=== PATIENT | female | born 1945 | race Caucasian/White ===

== ENCOUNTER 2017-06-14 13:41 | Inpatient (IN) | payer MEDICARE, OTHER ==
[~2017-06-14] VITALS: Ht 152.4 cm; Wt 72.6 kg
--- NOTE | 2017-06-14 13:43 | NUR ---
[id number] FROM [facility] OUTPATIENT: CHEST PAIN x 2 DAYS. ASA 162, NITRO 0.8, GIVEN IN FIELD, NAD NOTED, VSS, RESP EVEN AND UNLABORED. PT PUT ON MONITOR, AND HOSPITAL GOWN, WAITING FOR MD HOROWITZ.
[2017-06-14 14:04] LABS: BASOPHILS % (AUTO) 0.5 % (0.0-2.0); EOSINOPHILS % (AUTO) 0.8 % (0.0-6.0); HEMATOCRIT 40 % (33-45); HEMOGLOBIN 13.1 g/dL (11.5-14.8); LYMPHOCYTES # (AUTO) 1.6 /CMM (0.8-4.8); LYMPHOCYTES % (AUTO) 25.9 % (20.0-44.0); MEAN CORPUSCULAR HEMOGLOBIN 30 PG (26.0-33.0); MEAN CORPUSCULAR HGB CONC 33 g/dl (31.0-36.0); MEAN CORPUSCULAR VOLUME 91 fL (82-100); MONOCYTES # (AUTO) 0.4 /CMM (0.1-1.30); MONOCYTES % (AUTO) 6.2 % (2.0-12.0); NEUTROPHILS # (AUTO) 4.2 /CMM (1.8-8.9); NEUTROPHILS % (AUTO) 66.6 % (43.0-81.0); PLATELET COUNT (AUTO) 203 /CMM (150-450); RDW COEFFICIENT OF VARIATION 13.6 (11.5-15.0); WHITE BLOOD COUNT (AUTO) 6.2 K/uL (4.3-11.0)
[2017-06-14 14:13] LABS: CALCIUM, SERUM 8.6 mg/dL (8.5-10.1); CARBON DIOXIDE 30 mmol/L (21-32); CHLORIDE 106 mmol/L (98-107); GLUCOSE 99 mg/dL (74-106); POTASSIUM 3.8 mmol/L (3.5-5.1); SODIUM SERUM 142 mmol/L (136-145); UREA NITROGEN, BLOOD 20 mg/dL (7-18)
[2017-06-14 14:17] LABS: INR 0.93 (0.87-1.13); PROTHROMBIN TIME 9.7 SECS (9.5-12.7)
[2017-06-14 14:22] LABS: TROPONIN I < 0.017 ng/mL (0.00-0.056)
[2017-06-14 15:05] LABS: ALANINE AMINOTRANSFERASE 112 U/L (12-78); ALBUMIN 3.4 g/dL (3.4-5.0); ALCOHOL, BLOOD < 3 mg/dL (0-0); ALKALINE PHOSPHATASE 79 U/L (46-116); ASPARTATE AMINOTRANSFERASE 78 U/L (15-37); BILIRUBIN,DIRECT 0.1 mg/dL (0.0-0.2); BILIRUBIN,TOTAL 0.4 mg/dL (0.2-1.0); TOTAL PROTEIN, SERUM 6.8 g/dL (6.4-8.2)
--- NOTE | 2017-06-14 16:03 | NUR ---
CRISIS NURSE AT
[2017-06-14] MEDS ORDERED: MAG HYDROX/AL HYDROX/SIMETH 30 ML UDC PO PRN (18:00)
[2017-06-14] MEDS ORDERED: ACETAMINOPHEN 325 MG TABLET PO PRN (18:00)
[2017-06-14] MEDS ORDERED: MAGNESIUM HYDROXIDE 30 ML UDC PO PRN (18:00)
[2017-06-14] MEDS: LORAZEPAM 0.5 MG TABLET PO PRN (18:11)
--- NOTE | 2017-06-14 18:11 | NUR ---
PATIENT AGITATED AND MEDICATED WITH ATIVAN 0.5MG PO.
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
[2017-06-14] MEDS ORDERED: THIA100T74 PO (20:04)
[2017-06-14] MEDS ORDERED: METO50TA3 PO (20:05)
[2017-06-14] MEDS ORDERED: FOLI1TAB16 PO (20:08)
[2017-06-14] MEDS ORDERED: CEPH-570 PO (20:09)
[2017-06-14] MEDS ORDERED: GABA-534 PO (20:10)
[2017-06-14] MEDS ORDERED: NITR0.4T6 SL (20:14)
[2017-06-14] MEDS: TEMAZEPAM 7.5 MG CAPSULE PO PRN (20:53)
--- NOTE | 2017-06-14 20:53 | NUR ---
GPS RN NOTE: PATIENT IS AWAKE AND ORIENTED X3. PATIENT HAS A COMPLAINT OF HEADACHE, ON A 2 OUT OF 10 ON A PAIN SCALE AND REQUESTING TYLENOL. PATIENT VITAL SIGNS STABLE. GAVE TYLENOL 650MG Q6 HRS PRN ORDERED. WILL REASSESS PAIN AND I WILL CONTINUE MONITOR PATIENT.
--- NOTE | 2017-06-14 20:53 | NUR ---
GPS RN NOTES: PATIENT IN BED AWAKE AND ORIENTED X3, PATIENT HAS COMPLAINT OF UNABLE TO SLEEP AND PT IS REQUESTING HER SLEEPING PILL. RESTORIL 7.5MG PO PRN HS GIVEN ORDERED. WILL CONTINUE TO MONITOR.
[2017-06-14 23:46] VITALS: BP 134/66
[2017-06-15] MEDS: LORAZEPAM 0.5 MG TABLET PO PRN (05:03)
--- NOTE | 2017-06-15 05:03 | NUR ---
GPS RN NOTES: PATIENT IN BED AWAKE AND PATIENT HAS COMPLAINT OF BEING ANXIOUS AND PATIENT IS REQUESTING ATIVAN. VITAL SIGNS STABLE. ATIVAN 05.MG PO GIVEN ORDERED. WILL CONTINUE TO ASSESS AND MONITOR PATIENT [id number] FOR SAFETY.
[2017-06-15] MEDS ORDERED: NITROGLYCERIN 0.4 MG/TAB BOTTLE SL SCH (06:30)
[2017-06-15 06:42] LABS: ALBUMIN 3.1 g/dL (3.4-5.0); BILIRUBIN,TOTAL 0.5 mg/dL (0.2-1.0); CALCIUM, SERUM 8.9 mg/dL (8.5-10.1); CREATININE 0.9 mg/dL (0.6-1.3); POTASSIUM 3.8 mmol/L (3.5-5.1); TOTAL PROTEIN, SERUM 6.5 g/dL (6.4-8.2)
[2017-06-15] MEDS ORDERED: FIXODENT PO PRN (07:00)
[2017-06-15 08:00] VITALS: BP 146/79
[2017-06-15] MEDS ORDERED: CEPHALEXIN MONOHYDRATE 500 MG CAPSULE PO SCH (09:00)
[2017-06-15] MEDS: GABAPENTIN 300 MG CAPSULE PO SCH ×3 (09:11→16:59)
[2017-06-15] MEDS: METOPROLOL TARTRATE 50 MG TABLET PO SCH ×2 (09:11→16:59)
[2017-06-15] MEDS: CEPHALEXIN MONOHYDRATE 500 MG CAPSULE PO SCH ×4 (09:11→20:54)
[2017-06-15] MEDS: THIAMINE HCL 100 MG TABLET PO SCH (09:11)
[2017-06-15] MEDS: FOLIC ACID 1 MG TABLET PO SCH (09:11)
[2017-06-15] MEDS ORDERED: DIVALPROEX SODIUM 250 MG TABLET.DR PO SCH (13:00)
[2017-06-15] MEDS ORDERED: [UNRECOGNIZED DRUG - SUPPLY] XX (14:30)
--- NOTE | 2017-06-15 14:53 | NUR ---
Initial Discharge Note: Patient resides alone in an apartment [address] [place] [address]. ([phone]). Per patient, she does not want to return to the room worker will help form a safe and proper discharge.
[2017-06-15] MEDS: QUETIAPINE FUMARATE 25 MG TABLET PO SCH ×2 (15:52→20:54)
[2017-06-15 16:00] VITALS: BP 138/78
[2017-06-15 20:00] VITALS: BP 122/56
[2017-06-16 08:00] VITALS: BP 129/77
--- NOTE | 2017-06-16 10:18 | NUR ---
WOUND CARE CONSULT: PT PRESENTS AMBULATORY AND CONTINENT. PT HAS SMALL DRY LESION TO ANTERIOR SCALP AND DRY SCAB TO ABDOMEN. NO DRAINAGE NOTED. DEFER TO MD FOR HEAD LESION AND ABDOMINAL SCAB. CURRENT VASQUEZ SCORE IS 19. WILL SEE PRN.
[2017-06-16] MEDS: QUETIAPINE FUMARATE 25 MG TABLET PO SCH ×2 (10:23→16:14)
[2017-06-16] MEDS: METOPROLOL TARTRATE 50 MG TABLET PO SCH ×2 (10:23→16:12)
[2017-06-16] MEDS: CEPHALEXIN MONOHYDRATE 500 MG CAPSULE PO SCH ×4 (10:23→21:44)
[2017-06-16] MEDS: THIAMINE HCL 100 MG TABLET PO SCH (10:23)
[2017-06-16] MEDS: GABAPENTIN 300 MG CAPSULE PO SCH ×3 (10:23→16:14)
[2017-06-16] MEDS: FOLIC ACID 1 MG TABLET PO SCH (10:23)
[2017-06-16 16:07] VITALS: BP 103/59
[2017-06-16 20:00] VITALS: BP 135/71
[2017-06-16] MEDS: TEMAZEPAM 7.5 MG CAPSULE PO PRN (21:45)
[2017-06-17 08:00] VITALS: BP 144/82
[2017-06-17] MEDS: GABAPENTIN 300 MG CAPSULE PO SCH ×3 (09:00→16:28)
[2017-06-17] MEDS: QUETIAPINE FUMARATE 25 MG TABLET PO SCH ×2 (09:00→16:29)
[2017-06-17] MEDS: METOPROLOL TARTRATE 50 MG TABLET PO SCH ×2 (09:00→16:30)
[2017-06-17] MEDS: CEPHALEXIN MONOHYDRATE 500 MG CAPSULE PO SCH ×4 (09:00→21:46)
[2017-06-17] MEDS: THIAMINE HCL 100 MG TABLET PO SCH (09:00)
[2017-06-17] MEDS: FOLIC ACID 1 MG TABLET PO SCH (09:00)
[2017-06-17 16:00] VITALS: BP 113/54
[2017-06-17 16:31] VITALS: BP 118/64
--- NOTE | 2017-06-17 19:29 | NUR ---
MANAGER ART-NOTES RECEIVED CALL FROM LAB REGARDING MRSA SPECIMEN COLLECTION ON PT. BOTH NARES. ENDORSED TO NIGHT NURSE(KAMILAH) FOR THE COLLECTION AND CONTINUITY OF CARE.
[2017-06-17 20:00] VITALS: BP 122/62
[2017-06-17] MEDS: TEMAZEPAM 7.5 MG CAPSULE PO PRN (21:46)
[2017-06-18 08:00] VITALS: BP 129/67
[2017-06-18] MEDS: METOPROLOL TARTRATE 50 MG TABLET PO SCH ×2 (08:43→17:41)
[2017-06-18] MEDS: FOLIC ACID 1 MG TABLET PO SCH (08:43)
[2017-06-18] MEDS: QUETIAPINE FUMARATE 25 MG TABLET PO SCH ×2 (08:43→17:40)
[2017-06-18] MEDS: THIAMINE HCL 100 MG TABLET PO SCH (08:43)
[2017-06-18] MEDS: GABAPENTIN 300 MG CAPSULE PO SCH ×3 (08:43→17:40)
[2017-06-18] MEDS: CEPHALEXIN MONOHYDRATE 500 MG CAPSULE PO SCH ×4 (08:43→21:45)
[2017-06-18] MEDS: LORAZEPAM 0.5 MG TABLET PO PRN (13:39)
[2017-06-18 15:39] VITALS: BP 116/61
[2017-06-18] MEDS: NEOMY SULF/BACITRAC ZN/POLY 15 GM TUBE TP SCH (17:38)
[2017-06-18 20:52] VITALS: BP 107/62
[2017-06-18] MEDS: TEMAZEPAM 7.5 MG CAPSULE PO PRN (21:46)
--- NOTE | 2017-06-18 21:46 | NUR ---
GPS RN NOTES: PATIENT ALERT AND ORIENTED X3, PATIENT COMPLAINED UNABLE TO SLEEP. PATIENT IS REQUESTING RESTORIL. V/S STABLE. RESTORIL 7.5MG PO GIVEN ORDERED, TOLERATED WELL. WILL CONTINUE TO ASSESS PATIENT AND MONITOR HOURS OF SLEEP.
[2017-06-19 08:00] VITALS: BP 141/72
[2017-06-19] MEDS: QUETIAPINE FUMARATE 25 MG TABLET PO SCH ×2 (08:33→16:18)
[2017-06-19] MEDS: METOPROLOL TARTRATE 50 MG TABLET PO SCH ×2 (08:33→16:18)
[2017-06-19] MEDS: FOLIC ACID 1 MG TABLET PO SCH (08:33)
[2017-06-19] MEDS: GABAPENTIN 300 MG CAPSULE PO SCH ×3 (08:34→16:18)
[2017-06-19] MEDS: THIAMINE HCL 100 MG TABLET PO SCH (08:34)
[2017-06-19] MEDS: CEPHALEXIN MONOHYDRATE 500 MG CAPSULE PO SCH ×4 (08:34→21:17)
[2017-06-19] MEDS: NEOMY SULF/BACITRAC ZN/POLY 15 GM TUBE TP SCH ×2 (08:44→16:24)
--- NOTE | 2017-06-19 15:16 | NUR ---
Initially, SW worked with patient, by calling Bill Payers to obtain information about patient's overall source of income (patient reported being unsure as to amount of financial assistance she was receiving) to help patient locate an alternative living facility. A message was left by patient. Patient was able to provide SSI documentation showing amount of financial assistance she is receiving. Patient provided conflicting reports regarding plans upon discharge. She discussed wanting to return home as well as wanting to relocate. Patient reports having issues with her neighbors. Patient also inquired about assisting her obtain her medication upon discharge. Efforts were made by SW to contact Donovan Monsivais, [facility] [place] [address]; in order to assess if patient has a Housing SW or Relay Checker that can help her with medication support upon her discharge. SW attempted to contact Misa from [facility], whom patient reported as being her "worker." Donovan Monsivais reported Misa no longer worked at the facility and that they could not provide any information pertaining to the patient due to HIPPA laws. SW provided patient with an update, at which time she became upset about and reported not needing any help. Patient reported receiving transportation services on Tuesdays and Wednesdays from [facility] and that she could receive services from them. Patient asked for her prescription upon discharge and stated, I'm able body, I can walk and chicken picker my medication on my own." Patient was agreeable that she had the means to chicken picker her medication upon discharge. SW to follow up and ensure proper discharge.
[2017-06-19] MEDS: LORAZEPAM 0.5 MG TABLET PO PRN (15:27)
--- NOTE | 2017-06-19 15:28 | NUR ---
GPS RN NOTES: PATIENT ANXIOUS AND PATIENT IS REQUESTING ATIVAN. VITAL SIGNS STABLE. ATIVAN 05.MG PO GIVEN ORDERED. WILL CONTINUE TO ASSESS AND MONITOR PATIENT [id number] FOR SAFETY.
[2017-06-19 16:35] VITALS: BP 159/66
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
[2017-06-19 20:25] VITALS: BP 97/40
[2017-06-19] MEDS: TEMAZEPAM 7.5 MG CAPSULE PO PRN (21:17)
--- NOTE | 2017-06-19 21:17 | NUR ---
GPS RN NOTES: PATIENT ALERT AND ORIENTED X3, PATIENT COMPLAINED UNABLE TO SLEEP. PATIENT IS REQUESTING RESTORIL. V/S STABLE. RESTORIL 7.5MG PO GIVEN ORDERED, TOLERATED WELL. WILL CONTINUE TO ASSESS PATIENT SAFETY AND BEHAVIOR [id number] AND MONITOR HOURS OF SLEEP.
[2017-06-20 08:00] VITALS: BP 117/69
[2017-06-20] MEDS: CEPHALEXIN MONOHYDRATE 500 MG CAPSULE PO SCH ×4 (08:30→21:06)
[2017-06-20] MEDS: FOLIC ACID 1 MG TABLET PO SCH (08:31)
[2017-06-20] MEDS: THIAMINE HCL 100 MG TABLET PO SCH (08:31)
[2017-06-20] MEDS: GABAPENTIN 300 MG CAPSULE PO SCH ×3 (08:31→16:03)
[2017-06-20] MEDS: METOPROLOL TARTRATE 50 MG TABLET PO SCH ×2 (08:31→16:03)
[2017-06-20] MEDS: QUETIAPINE FUMARATE 25 MG TABLET PO SCH ×2 (08:31→16:03)
[2017-06-20] MEDS: NEOMY SULF/BACITRAC ZN/POLY 15 GM TUBE TP SCH ×2 (09:19→16:43)
[2017-06-20 15:46] VITALS: BP 117/54
[2017-06-20 20:12] VITALS: BP 100/59
[2017-06-20] MEDS: TEMAZEPAM 7.5 MG CAPSULE PO PRN (21:06)
[2017-06-21] MEDS: LORAZEPAM 0.5 MG TABLET PO PRN (05:26)
--- NOTE | 2017-06-21 05:26 | NUR ---
GPS RN NOTES: PATIENT COMPLAINED TO ORE PUNCHER OF BEING ANXIOUS, REQUESTED FOR ATIVAN0.5MG PO. BP CHECKED 131/76, PULSE RATE-68. GIVEN TO PATIENT PRN ORDER. WILL CONTINUE TO MONITOR PATIENT.
[2017-06-21 08:17] VITALS: BP 133/64
[2017-06-21] MEDS: QUETIAPINE FUMARATE 25 MG TABLET PO SCH (09:09)
[2017-06-21] MEDS: CEPHALEXIN MONOHYDRATE 500 MG CAPSULE PO SCH ×2 (09:09→13:34)
[2017-06-21 09:10] VITALS: BP 133/64
[2017-06-21] MEDS: FOLIC ACID 1 MG TABLET PO SCH (09:10)
[2017-06-21] MEDS: METOPROLOL TARTRATE 50 MG TABLET PO SCH (09:10)
[2017-06-21] MEDS: THIAMINE HCL 100 MG TABLET PO SCH (09:10)
[2017-06-21] MEDS: GABAPENTIN 300 MG CAPSULE PO SCH ×2 (09:10→13:34)
[2017-06-21] MEDS: NEOMY SULF/BACITRAC ZN/POLY 15 GM TUBE TP SCH (09:11)
--- NOTE | 2017-06-21 10:30 | NUR ---
RN-CO: PATIENT WAS RELEASE BY MENTAL HEALTH COURT. PER COURT, THERE IS NOT PROBABLE CAUSE TO BELIEVE THAT SHE A MENTAL HEALTH DISORDER IS A DANGER TO HERSELF,DTO AND GD. NOTIFIED DR BOLIVAR AND ORDERED TO DISCONTINUE HOLD AND DISCHARGE THE PATIENT TODAY.
--- NOTE | 2017-06-21 10:38 | NUR ---
Discharge Note Patient will be discharged home to [address] [address]. [phone] via taxi arranged by social work job titles. Patient had no family to notify and provided no contacts. Patient appeared alert, oriented and denied suicidal/homicidal ideation. Patient was released by the court. Patient will follow up with her psychiatrist, Dr. Osborne [address] [address] [phone] on July 04 at noon. Patient was encouraged to discuss her history of alcohol use with him. Patient was also encouraged to present at Alcoholic Anonymous Meeting at [address] [place] on June 23 at 7:30pm. Patient had no hogshead stock clerk and was referred to [address] [address] .
--- NOTE | 2017-06-21 14:00 | NUR ---
CLIENT REPORTING ASSOCIATE NOTE:PATIENT ALERT ,VERBALLY RESPONSIVE VS STABLE ,DENIES SI/HI/AVH .NO C/O PAIN AND NOTIFIED OF DISCHARGE WITH DISCHARGE ORDERS .PATIENT IN COURT HEARING AND COMPRESSOR OPERATOR DISCHARGE PATIENT AND DISCONTINUED THE HOLD .ALL BEONGINGS RETURNED TO PATIENT .ALL PRESCRIPTION AND LIST OF MEDICATION AND DISCHARGE INSTRUCTION GIVEN TO PATIENT ABLE TO VERBALIZE UNDERSTANDING .PATIENT DISCHARGE WITH TAXI.
--- NOTE | 2017-06-23 12:14 | NUR ---
RN NOTE: LATE ENTRY FOR 06/21/17 PATIENT REFUSED DISCHARGE PHOTOS .
== END 2017-06-21 14:15 | disposition home or self-care (01) | DRG 885 ==
LOC: ER 13:44 → GPS 16:34
PROVIDERS: ADMIT Psychiatry & Neurology Psychiatry; ATTEND General Practice
DX: F31.64 Bipolar disorder, current episode mixed, severe, with psychotic features (principal); E78.5 Hyperlipidemia, unspecified; S30.92XA Unspecified superficial injury of abdominal wall, initial encounter; S01.00XA Unspecified open wound of scalp, initial encounter; I10 Essential (primary) hypertension; Z79.899 Other long term (current) drug therapy; Z96.651 Presence of right artificial knee joint; Z88.2 Allergy status to sulfonamides; F10.21 Alcohol dependence, in remission; X58.XXXA Exposure to other specified factors, initial encounter; Y93.9 Activity, unspecified; Y92.009 Unspecified place in unspecified non-institutional (private) residence as the place of occurrence of the external cause; L98.8 Other specified disorders of the skin and subcutaneous tissue
CPT/HCPCS: 36415; 71010-TC; 80048-TC; 80053-TC; 80061-TC; 80076-TC; 84484-TC; 85025-TC; 85730-TC; 87081-TC; A4606; G0480; Z7610

== ENCOUNTER 2018-12-27 13:20 | Inpatient (IN) | payer MEDICARE, OTHER ==
[~2018-12-27] VITALS: Ht 152.4 cm; Wt 64.9 kg
[~2018-12-27 13:20] MED LIST: CEPH-570 PO; FOLI1TAB16 PO; GABA-534 PO; METO50TA16 PO; NITR0.4T48 PO; THIA100T74 PO
[2018-12-27] MEDS ORDERED: QUET25TA PO (13:51)
[2018-12-27] MEDS ORDERED: TRAM50TA2 PO (13:51)
[2018-12-27] MEDS ORDERED: FLUO10TA PO (13:51)
[2018-12-27] MEDS ORDERED: ZOLPIDEM TARTRATE 5 MG TABLET PO PRN (14:30)
[2018-12-27] MEDS ORDERED: MAGNESIUM HYDROXIDE 30 ML UDC PO PRN (14:30)
[2018-12-27] MEDS ORDERED: LORAZEPAM 0.5 MG TABLET PO PRN (14:30)
[2018-12-27] MEDS ORDERED: ACETAMINOPHEN 325 MG TABLET PO PRN (14:30)
[2018-12-27] MEDS ORDERED: MAG HYDROX/AL HYDROX/SIMETH 30 ML UDC PO PRN (14:30)
[2018-12-27 14:32] VITALS: BP 161/86
--- NOTE | 2018-12-27 15:13 | NUR ---
GPS ADMITTING NOTE: PATIENT 73Y/O FEMALE ADMITTED FROM [facility] WAS PLACED ON 5150 HOLD FOR DTO, GD. PER HOLD PT CAME TO ER WITH ALTERED STATED OF MIND COMPLAINING OF HEADACHE AND INCREASED MENTAL HEALTH STAT. PT STATED "I DONT FEEL SAFE,I MAY SERT MYSELF RUN IN FRONT OF THE CARE. UPON FACE TO FACE EVALUATION PT A&OX4 , AMBULATORY, SELF CARE, UNKEPT , DISHEVELED,PT DENIES SI/HI AT THIS TIME BUT ADMIT FEELING DEPRESSED, HELPLESS. PT HOMELESS UNABLE TO CARE FOR SELF REPORTED POOR SLEEP .PT HAS HX OF BIPOLAR D/O . DEPRESSION . HTN. DR SINGH NOTIFIED WITH STANDING ORDER, PAPERS SIGN, SKIN ASSESSMENT DONE PICTURE PLACED IN THE CHART. ALL BELONGINGS AND CONTRABAND CHECKED.
[2018-12-27 16:12] VITALS: BP 157/81
[2018-12-27] MEDS ORDERED: NITROGLYCERIN 0.4 MG/TAB BOTTLE SL PRN (16:30)
[2018-12-27] MEDS: METOPROLOL TARTRATE 50 MG TABLET PO SCH (16:58)
[2018-12-27 19:57] VITALS: BP 133/74
[2018-12-28 07:40] LABS: ALANINE AMINOTRANSFERASE 140 U/L (12-78); ALBUMIN 3.5 g/dL (3.4-5.0); ALKALINE PHOSPHATASE 78 U/L (46-116); ASPARTATE AMINOTRANSFERASE 63 U/L (15-37); BILIRUBIN,TOTAL 0.6 mg/dL (0.2-1.0); CALCIUM, SERUM 8.6 mg/dL (8.5-10.1); CARBON DIOXIDE 27 mmol/L (21-32); CHLORIDE 106 mmol/L (98-107); CREATININE 0.9 mg/dL (0.6-1.3); GLUCOSE 93 mg/dL (74-106); POTASSIUM 4.1 mmol/L (3.5-5.1); SODIUM SERUM 142 mmol/L (136-145); TOTAL PROTEIN, SERUM 7.5 g/dL (6.4-8.2); UREA NITROGEN, BLOOD 22 mg/dL (7-18)
[2018-12-28 08:00] VITALS: BP 145/74
[2018-12-28] MEDS: METOPROLOL TARTRATE 50 MG TABLET PO SCH ×3 (08:13→16:48)
[2018-12-28 09:20] LABS: CHOLESTEROL 195 mg/dL (<200); HDL CHOLESTEROL 107 mg/dL (40-60); LDL 74 mg/dL (0-99); TRIGLYCERIDES 48 mg/dL (30-150)
[2018-12-28] MEDS: Fluoxetine 10 mg capsule PO SCH (11:06)
[2018-12-28] MEDS: QUETIAPINE FUMARATE 100 MG TABLET PO SCH ×2 (11:06→23:04)
--- NOTE | 2018-12-28 11:52 | NUR ---
INITIAL DISCHARGE PLAN: patient is homeless and wishes to be placed at a SNF. SW will help form a safe and proper discharge in collaboration with .
--- NOTE | 2018-12-28 12:02 | NUR ---
WOUND CARE CONSULT: PT PRESENTS WITH DRY LESIONS TO SCALP AND ONE DRY LESION TO ABDOMEN, UNKNOWN ETIOLOGY, PRESENT ON ADMISSION. DEFER TO MD. PT IS AMBULATORY AND CONTINENT. WILL SEE PRN. CURRENT VASQUEZ SCORE IS 20.
[2018-12-28] MEDS: GABAPENTIN 300 MG CAPSULE PO SCH ×2 (12:27→16:33)
--- NOTE | 2018-12-28 14:17 | NUR ---
GROUP NOTE: SW prompted pt to participate in group, pt was asleep and did not wake up when SW called her name.
[2018-12-28 16:00] VITALS: BP 109/64
[2018-12-28] MEDS ORDERED: CLINDAMYCIN HCL 150 MG CAPSULE PO SCH (17:00)
[2018-12-28] MEDS ORDERED: LACTOBACILLUS RHAMNOSUS GG 1 EACH CAP.SPRINK PO SCH (17:00)
[2018-12-28] MEDS: CEPHALEXIN MONOHYDRATE 250 MG CAPSULE PO SCH ×2 (17:16→23:04)
[2018-12-28 20:00] VITALS: BP 149/71
[2018-12-29] MEDS: CEPHALEXIN MONOHYDRATE 250 MG CAPSULE PO SCH ×4 (06:14→23:05)
[2018-12-29 08:00] VITALS: BP 113/68
[2018-12-29] MEDS: METOPROLOL TARTRATE 50 MG TABLET PO SCH ×2 (08:18→16:15)
[2018-12-29] MEDS: QUETIAPINE FUMARATE 100 MG TABLET PO SCH ×2 (08:19→21:05)
[2018-12-29] MEDS: GABAPENTIN 300 MG CAPSULE PO SCH ×3 (08:19→16:15)
[2018-12-29] MEDS: Fluoxetine 10 mg capsule PO SCH (08:19)
[2018-12-29 16:00] VITALS: BP 110/55
[2018-12-29] MEDS ORDERED: MUPIROCIN OINT 2% 22 GM TUBE TP SCH (17:00)
[2018-12-29] MEDS: MUPIROCIN OINT 2% 22 GM TUBE SCH (20:07)
[2018-12-29 20:42] VITALS: BP 100/58
[2018-12-29] MEDS ORDERED: MUPIROCIN OINT 2% 22 GM TUBE SCH (21:00)
[2018-12-29] MEDS: TEMAZEPAM 15 MG CAPSULE PO PRN (23:54)
[2018-12-30] MEDS: CEPHALEXIN MONOHYDRATE 250 MG CAPSULE PO SCH ×4 (06:00→23:46)
[2018-12-30 08:00] VITALS: BP 122/70
[2018-12-30] MEDS: GABAPENTIN 300 MG CAPSULE PO SCH ×3 (08:29→16:07)
[2018-12-30] MEDS: QUETIAPINE FUMARATE 100 MG TABLET PO SCH ×2 (08:29→21:12)
[2018-12-30] MEDS: Fluoxetine 10 mg capsule PO SCH (08:29)
[2018-12-30] MEDS: METOPROLOL TARTRATE 50 MG TABLET PO SCH ×2 (08:29→16:07)
[2018-12-30] MEDS: MUPIROCIN OINT 2% 22 GM TUBE SCH ×2 (08:30→21:12)
[2018-12-30 16:00] VITALS: BP 119/69
[2018-12-30] MEDS: TRAMADOL HCL 50 MG TABLET PO PRN (16:06)
--- NOTE | 2018-12-30 16:10 | NUR ---
GPS RN NOTE: PATIENT C/O RIGHT SHOULDER PAIN 8/10 ULTRAM WAS GIVEN PER ORDER. WILL CONTINUE MONITORING
[2018-12-30 20:15] VITALS: BP 113/56
[2018-12-30] MEDS: TEMAZEPAM 15 MG CAPSULE PO PRN (21:36)
[2018-12-31] MEDS: CEPHALEXIN MONOHYDRATE 250 MG CAPSULE PO SCH ×4 (05:42→23:13)
[2018-12-31 08:00] VITALS: BP 123/69
[2018-12-31] MEDS: MUPIROCIN OINT 2% 22 GM TUBE SCH ×2 (09:01→21:36)
[2018-12-31] MEDS: QUETIAPINE FUMARATE 100 MG TABLET PO SCH ×2 (09:02→21:36)
[2018-12-31] MEDS: GABAPENTIN 300 MG CAPSULE PO SCH ×3 (09:02→17:04)
[2018-12-31] MEDS: Fluoxetine 10 mg capsule PO SCH (09:02)
[2018-12-31] MEDS: METOPROLOL TARTRATE 50 MG TABLET PO SCH ×2 (09:03→17:03)
[2018-12-31 16:00] VITALS: BP_SYST 112; BP_SYST 117; BP_DIAS 53; BP_DIAS 63
--- NOTE | 2018-12-31 19:30 | NUR ---
GPS RN NOTE: PATIENT RESTING IN BED, NO ACUTE DISTRESS NOTED. BREATHING EVEN AND UNLABORED, NO SOB NOTED. PATIENT CALM AND COOPERATIVE AT THIS TIME. ISOLATION PRECAUTION OBSERVED. WILL CONTINUE TO MONITOR.
[2018-12-31 20:22] VITALS: BP 119/56
[2018-12-31] MEDS: TRAMADOL HCL 50 MG TABLET PO PRN (21:36)
--- NOTE | 2018-12-31 21:45 | NUR ---
GPS RN NOTE: PATIENT COMPLAINS OF LEFT KNEE PAIN, ULTRAM 50MG 1 TAB ORAL GIVEN PER MD ORDER. WILL CONTINUE TO MONITOR.
[2019-01-01] MEDS: CEPHALEXIN MONOHYDRATE 250 MG CAPSULE PO SCH ×4 (06:19→23:37)
[2019-01-01 08:00] VITALS: BP 130/65
[2019-01-01] MEDS: QUETIAPINE FUMARATE 100 MG TABLET PO SCH ×2 (08:28→20:45)
[2019-01-01] MEDS: Fluoxetine 10 mg capsule PO SCH (08:28)
[2019-01-01] MEDS: METOPROLOL TARTRATE 50 MG TABLET PO SCH ×2 (08:29→17:32)
[2019-01-01] MEDS: GABAPENTIN 300 MG CAPSULE PO SCH ×3 (08:29→17:32)
[2019-01-01] MEDS: MUPIROCIN OINT 2% 22 GM TUBE SCH ×2 (08:30→20:42)
--- NOTE | 2019-01-01 09:28 | NUR ---
SNF REFERRAL: PAUL faxed SNF referral to Leida foundation coordinator at [facility] (SNF) [address] [place], [address] for review.
--- NOTE | 2019-01-01 13:13 | NUR ---
SW received a call from Leida, records management coordinator at [facility] ([facility]) [address] [place], [address] stating pt has been accepted to the facility.
--- NOTE | 2019-01-01 14:25 | NUR ---
Group Note: SW prompted pt to participate in group but the pt stated that she did not want to participate because there is no need for it.
[2019-01-01 16:25] VITALS: BP 115/60
[2019-01-01 19:53] VITALS: BP 104/57
[2019-01-01 20:00] VITALS: BP 104/57
[2019-01-01] MEDS: TEMAZEPAM 15 MG CAPSULE PO PRN (23:37)
--- NOTE | 2019-01-01 23:38 | NUR ---
UNABLE TO SLEEP Patient reports unable to sleep, given PRN Restoril, will reassess.
[2019-01-02] MEDS: CEPHALEXIN MONOHYDRATE 250 MG CAPSULE PO SCH ×2 (06:02→12:03)
[2019-01-02 08:00] VITALS: BP 130/63
--- NOTE | 2019-01-02 09:00 | NUR ---
PLANS FOR DISCHARGE TODAY.[facility] SOC. WORKER CONTACTED FACILITY REGARDING PT. BEING IN ISOL. FOR MRSA-HAS BEEN ON BACTROBAN.NEED ORDER THAT MRSA IS COLONIZED PER .MICHELLE CONTACTED. REQUESTED ANOTHER MRSA SMEAR.RN CALLED LAB-STATED THAT MRSA SENT OUT AND WILL TAKE A FEW DAYS TO GET RESULT.
[2019-01-02] MEDS: MUPIROCIN OINT 2% 22 GM TUBE SCH (09:09)
[2019-01-02 09:10] VITALS: BP 130/63
[2019-01-02] MEDS: GABAPENTIN 300 MG CAPSULE PO SCH ×2 (09:10→13:31)
[2019-01-02] MEDS: Fluoxetine 10 mg capsule PO SCH (09:10)
[2019-01-02] MEDS: QUETIAPINE FUMARATE 100 MG TABLET PO SCH (09:10)
[2019-01-02] MEDS: METOPROLOL TARTRATE 50 MG TABLET PO SCH (09:10)
--- NOTE | 2019-01-02 11:21 | NUR ---
[facility] SMEAR SENT OF [facility]. NARES.
--- NOTE | 2019-01-02 11:28 | NUR ---
DISCHARGE TO BE DELAYED.RN,MAC DEVELOPER AND PSYCHIATRIST ALL SPOKE TO PT. REGARDING NEED FOR DELAY.
--- NOTE | 2019-01-02 12:09 | NUR ---
DISCHARGE NOTE: Pt will be discharging at 1:00pm via AMBULNZ to [facility] ([facility]) [address] [place], [address] . No family to notify. Pts mood is euthymic with congruent affect. Pt denied visual/auditory hallucinations and denied suicidal/homicidal ideation. Pt will be under the care of Aircraft Fuselage Framer: Dr Winter Address: [address] [place] [address] and Psychiatrist: Dr. Waterman [address] [address] [phone]. The multidisciplinary exitcare form was done, printed, signed, and given to the patient.
--- NOTE | 2019-01-02 12:34 | NUR ---
SOCIAL SERVICE NOW RECEIVED WORD FROM FACILITY THAT THEY WOULD ACCEPT PT. TODAY.PT. INFORMED.
--- NOTE | 2019-01-02 13:10 | NUR ---
REFUSED DISCHARGE PHOTOS.
--- NOTE | 2019-01-02 15:05 | NUR ---
DC'D VIA AMBULANCE TO [facility].REPORT CALLED IN TO DAMI AT FACILITY.ALL PAPERS SIGNED INCLUDING BELONGING SHEET.PT. DENIES SUICIDAL IDEATION OR HOMICIDAL IDEATION.
== END 2019-01-02 15:00 | DRG 885 ==
LOC: GPS 13:20
PROVIDERS: ADMIT Psychiatry & Neurology Psychiatry; ATTEND Nurse Practitioner Acute Care
DX: F31.5 Bipolar disorder, current episode depressed, severe, with psychotic features (principal); L03.811 Cellulitis of head [any part, except face]; N39.0 Urinary tract infection, site not specified; Z73.6 Limitation of activities due to disability; M85.80 Other specified disorders of bone density and structure, unspecified site; B35.0 Tinea barbae and tinea capitis; E66.9 Obesity, unspecified; Z59.0 Homelessness; Z79.899 Other long term (current) drug therapy; Z87.891 Personal history of nicotine dependence; Z81.8 Family history of other mental and behavioral disorders; X58.XXXA Exposure to other specified factors, initial encounter; Y92.9 Unspecified place or not applicable; Z22.322 Carrier or suspected carrier of Methicillin resistant Staphylococcus aureus; F10.10 Alcohol abuse, uncomplicated; S01.01XA Laceration without foreign body of scalp, initial encounter; L98.9 Disorder of the skin and subcutaneous tissue, unspecified
CPT/HCPCS: 36415; 80053-TC; 80061-TC; 87070-TC; 87081-TC

== ENCOUNTER 2019-03-17 15:32 | Inpatient (IN) | payer MEDICARE, OTHER ==
[~2019-03-17] VITALS: Ht 152.4 cm; Wt 68.0 kg
[~2019-03-17 15:32] MED LIST changes: -CEPH-570 PO; -FOLI1TAB16 PO; -GABA-534 PO; -THIA100T74 PO; +TRAM50TA2 PO
--- NOTE | 2019-03-17 15:45 | NUR ---
SATURNINO STOLL FOR PSYCH EVAL, AGGRESSIVE BEHAVIOR PER REPORT. PATIENT A/OX3, BREATHING EVEN AND UNLABORED, NO SOB NOTED. COOPERATIVE AT THIS TIME. KEPT COMFORTABLE, WILL CONTINUE TO MONITOR.
[2019-03-17] MEDS ORDERED: TRAM50TA2 PO (16:14)
[2019-03-17] MEDS ORDERED: ACET-868 PO (16:14)
[2019-03-17] MEDS ORDERED: MAGN400O6 PO (16:14)
[2019-03-17] MEDS ORDERED: QUET50TA PO (16:14)
[2019-03-17] MEDS ORDERED: FLUO-120 PO (16:14)
[2019-03-17] MEDS ORDERED: BISA10SU11 RC (16:14)
[2019-03-17] MEDS ORDERED: NA P133E RC (16:14)
[2019-03-17] MEDS ORDERED: GABA-532 PO (16:14)
[2019-03-17 16:36] LABS: CALCIUM, SERUM 8.9 mg/dL (8.5-10.1); CARBON DIOXIDE 24 mmol/L (21-32); CHLORIDE 105 mmol/L (98-107); CREATININE 0.7 mg/dL (0.6-1.3); GLUCOSE 90 mg/dL (74-106); SODIUM SERUM 140 mmol/L (136-145); UREA NITROGEN, BLOOD 16 mg/dL (7-18)
[2019-03-17 16:38] LABS: BASOPHILS % (AUTO) 0.4 % (0.0-2.0); EOSINOPHILS % (AUTO) 1.5 % (0.0-6.0); HEMATOCRIT 41 % (33-45); HEMOGLOBIN 13.6 g/dL (11.5-14.8); LYMPHOCYTES # (AUTO) 2.1 /CMM (0.8-4.8); LYMPHOCYTES % (AUTO) 28.9 % (20.0-44.0); MEAN CORPUSCULAR HGB CONC 33 g/dl (31.0-36.0); MEAN CORPUSCULAR VOLUME 94 fL (82-100); MONOCYTES # (AUTO) 0.6 /CMM (0.1-1.30); MONOCYTES % (AUTO) 7.8 % (2.0-12.0); NEUTROPHILS # (AUTO) 4.5 /CMM (1.8-8.9); NEUTROPHILS % (AUTO) 61.4 % (43.0-81.0); PLATELET COUNT (AUTO) 186 /CMM (150-450); RED BLOOD CELL COUNT(AUTO) 4.39 MIL/uL (4.0-5.2); WHITE BLOOD COUNT (AUTO) 7.3 K/uL (4.3-11.0)
[2019-03-17 16:48] LABS: ALANINE AMINOTRANSFERASE 131 U/L (12-78); ALBUMIN 3.4 g/dL (3.4-5.0); ALKALINE PHOSPHATASE 90 U/L (46-116); ASPARTATE AMINOTRANSFERASE 80 U/L (15-37); BILIRUBIN,DIRECT 0.2 mg/dL (0.0-0.2); BILIRUBIN,TOTAL 0.4 mg/dL (0.2-1.0); TOTAL PROTEIN, SERUM 7.2 g/dL (6.4-8.2)
[2019-03-17 16:50] LABS: ACETAMINOPHEN < 2 ug/ml (10-30); ALCOHOL, BLOOD < 3 mg/dL (0-0); SALICYLATE < 2.8 mg/dL (2.8-20.0)
--- NOTE | 2019-03-17 17:13 | NUR ---
REPORT GIVEN TO DEYSI LOVE. PATIENT ASSISTED TO RESTROOM, URINE CUP PROVIDED FOR URINE SAMPLE.
[2019-03-17 17:20] VITALS: BP 125/81
--- NOTE | 2019-03-17 17:51 | NUR ---
PATIENT TRANSFERRED TO [place] [address], IN STABLE CONDITION.
[2019-03-17 18:39] VITALS: BP 169/94
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
[2019-03-17] MEDS ORDERED: MAGNESIUM HYDROXIDE 30 ML UDC PO PRN (19:00)
[2019-03-17] MEDS ORDERED: BLOOD SUGAR DIAGNOSTIC 1 EACH STRIP IN ONE (19:00)
[2019-03-17] MEDS ORDERED: MAG HYDROX/AL HYDROX/SIMETH 30 ML UDC PO PRN (19:00)
[2019-03-17] MEDS ORDERED: ACETAMINOPHEN 325 MG TABLET PO PRN (19:00)
[2019-03-17 20:08] VITALS: BP 160/69
[2019-03-18] MEDS ORDERED: NA PHOS,M-B/NA PHOS,DI-BA 1 EA ENEMA RC PRN
[2019-03-18] MEDS ORDERED: NITROGLYCERIN 0.4 MG/TAB BOTTLE SL PRN
[2019-03-18] MEDS ORDERED: BISACODYL SUPP (10 MG) 10 MG/SUPP.RECT SUPP.RECT RC PRN
[2019-03-18] MEDS ORDERED: TRAMADOL HCL 50 MG TABLET PO PRN
[2019-03-18 06:41] LABS: ALANINE AMINOTRANSFERASE 142 U/L (12-78); ALBUMIN 3.6 g/dL (3.4-5.0); ALKALINE PHOSPHATASE 95 U/L (46-116); ASPARTATE AMINOTRANSFERASE 81 U/L (15-37); BILIRUBIN,TOTAL 0.7 mg/dL (0.2-1.0); CARBON DIOXIDE 27 mmol/L (21-32); CHLORIDE 104 mmol/L (98-107); CREATININE 0.8 mg/dL (0.6-1.3); GLUCOSE 94 mg/dL (74-106); POTASSIUM 4.6 mmol/L (3.5-5.1); SODIUM SERUM 139 mmol/L (136-145); TOTAL PROTEIN, SERUM 7.9 g/dL (6.4-8.2); UREA NITROGEN, BLOOD 18 mg/dL (7-18)
[2019-03-18 06:59] LABS: CHOLESTEROL 192 mg/dL (<200); HDL CHOLESTEROL 89 mg/dL (40-60); LDL 84 mg/dL (0-99); TRIGLYCERIDES 115 mg/dL (30-150)
[2019-03-18 08:00] VITALS: BP 149/69
[2019-03-18] MEDS ORDERED: GABAPENTIN 100 MG CAPSULE PO SCH (09:00)
[2019-03-18] MEDS: METOPROLOL TARTRATE 50 MG TABLET PO SCH ×2 (09:46→16:16)
[2019-03-18 16:00] VITALS: BP 151/70
[2019-03-18] MEDS: GABAPENTIN 100 MG CAPSULE PO SCH (16:16)
[2019-03-18 19:54] VITALS: BP 154/76
[2019-03-18] MEDS: QUETIAPINE FUMARATE 100 MG TABLET PO SCH (21:34)
[2019-03-18] MEDS: LORAZEPAM 0.5 MG TABLET PO PRN (21:34)
[2019-03-18] MEDS: TEMAZEPAM 7.5 MG CAPSULE PO PRN (21:35)
[2019-03-19 08:00] VITALS: BP 124/56
[2019-03-19] MEDS: METOPROLOL TARTRATE 50 MG TABLET PO SCH ×2 (09:21→17:47)
[2019-03-19] MEDS: FLUOXETINE HCL 20 MG CAPSULE PO SCH (09:21)
[2019-03-19] MEDS: GABAPENTIN 100 MG CAPSULE PO SCH ×2 (09:21→17:48)
--- NOTE | 2019-03-19 14:28 | NUR ---
INITIAL DISCHARGE PLAN: Pt wishes to be discharged to a different SNF as she stated she does not want to return to [facility] Address: [place] [address] . PAUL will help form a safe and proper discharge in collaboration with .
[2019-03-19 16:00] VITALS: BP 130/58
--- NOTE | 2019-03-19 19:30 | NUR ---
GPS RN NOTE, RECEIVED PATIENT AWAKE AND IN BED, NO S/S OR COMPLAINTS OF PAIN AT THIS TIME. PATIENT IS DISPLAYING NO S/S OF APPARENT DISTRESS AT THIS TIME. PATIENT BREATHING IS UNLABORED WITH EQUAL RISE AND FALL OF THE CHEST. PATIENT IS ALERT AND ORIENTED X 3 ON ROOM AIR WITH A SPO2 OF 94%. PATIENT IS MED COMPLAINT, GUARDED, ISOLATIVE, COOPERATIVE, AND NEEDS REORIENTATION. PATIENT DENIES SUICIDE AND HOMICIDAL IDEATIONS AT THIS TIME. PATIENT ASSISTED WITH TURNING AND REPOSITIONING Q2HR AND PRN FOR COMFORT AND CIRCULATION. PATIENT HAS NO NEEDS AT THIS TIME. PATIENT EDUCATED ON THE USE OF THE CALL DELEON. PATIENT BED SIDE RAILS ARE UP X 2 FOR SAFETY, BED IS LOCKED, AND LOW WILL CONTINUE TO MONITOR AND MAINTAIN SAFETY.
[2019-03-19] MEDS: QUETIAPINE FUMARATE 100 MG TABLET PO SCH (21:24)
[2019-03-19 21:38] VITALS: BP 139/68
[2019-03-20] MEDS: TEMAZEPAM 7.5 MG CAPSULE PO PRN (00:12)
--- NOTE | 2019-03-20 00:12 | NUR ---
GPS RN NOTE, PATIENT HAS A COMPLAINT OF NOT BEING ABLE TO SLEEP AND IS REQUESTING RESTORIL AT THIS TIME. PATIENT VITAL SIGNS ARE STABLE. GAVE RESTORIL 7.5 MG PO HS PRN ORDERED. WILL REASSESS FOR INSOMNIA AND I WILL CONTINUE TO MONITOR THIS PATIENT.
[2019-03-20] MEDS ORDERED: KETOCONAZOLE 2% CREAM 15 GM TUBE TP SCH (09:00)
[2019-03-20] MEDS: FLUOXETINE HCL 20 MG CAPSULE PO SCH (09:01)
[2019-03-20] MEDS: GABAPENTIN 100 MG CAPSULE PO SCH ×2 (09:01→17:40)
[2019-03-20] MEDS: METOPROLOL TARTRATE 50 MG TABLET PO SCH ×2 (09:01→17:41)
[2019-03-20 09:08] VITALS: BP 123/60
--- NOTE | 2019-03-20 12:28 | NUR ---
GROUP NOTE Goal: Patient will attend group being held today from 11am-11:45 am in the activities room and participate and/or actively listen to peers and be respectful. Intervention: SW facilitated group session with patients regarding their support system. SW used reflective listening to ensure understanding patient correctly. SW explored barriers to support system and feelings that may arise. SW respected pt.�s privacy and self-determination. SW encouraged pt. to attempt to reach out to family. Response: Patient was agreeable to participating in group session. Patient was alert and oriented and remained calm and cooperative throughout session. The resident expressed that she has an aunt, and one daughter plus grandchildren, however, they are not in contact. Resident did not disclose reason why she is not in communication with daughter. Per patient, she will consider reaching out and locating daughter. Plan: Patient will be invited to attend next director social group session held.
--- NOTE | 2019-03-20 15:59 | NUR ---
IAM ALEJANDRO HORSEBACK EXCAVATOR IN EARLIER AND MULTIPLE MEDS ORDERED FOR SCALP IRRITATION.
[2019-03-20 16:00] VITALS: BP 125/59
[2019-03-20] MEDS ORDERED: KETOCONAZOLE SHAMPOO TP SCH (17:00)
[2019-03-20] MEDS: TRIAMCINOLONE ACETONIDE 0.1% TP SCH (17:43)
--- NOTE | 2019-03-20 18:00 | NUR ---
NO CHANGE IN STATUS.
[2019-03-20 20:13] VITALS: BP 154/67
[2019-03-20] MEDS: QUETIAPINE FUMARATE 100 MG TABLET PO SCH (21:16)
[2019-03-21 08:00] VITALS: BP 108/63
[2019-03-21] MEDS: FLUOXETINE HCL 20 MG CAPSULE PO SCH (08:48)
[2019-03-21] MEDS: GABAPENTIN 100 MG CAPSULE PO SCH ×2 (08:48→16:33)
[2019-03-21] MEDS: METOPROLOL TARTRATE 50 MG TABLET PO SCH ×2 (08:49→16:34)
[2019-03-21] MEDS: KETOCONAZOLE SHAMPOO TP SCH (08:51)
[2019-03-21] MEDS: TRIAMCINOLONE ACETONIDE 0.1% TP SCH ×2 (08:51→16:35)
[2019-03-21] MEDS ORDERED: KETOCONAZOLE SHAMPOO TP SCH (09:00)
[2019-03-21] MEDS: MAGNESIUM HYDROXIDE 30 ML UDC PO PRN (10:21)
--- NOTE | 2019-03-21 10:26 | NUR ---
GPS/RN-NOTES PATIENT C/O CONSTIPATION AND REQUESTING FOR MOM . MOM 30ML GIVEN PRN ORDER. WILL CONT. MONITORING.
[2019-03-21] MEDS: LORAZEPAM 0.5 MG TABLET PO PRN (14:26)
--- NOTE | 2019-03-21 14:26 | NUR ---
GPS/RN-NOTES PATIENT REQUESTING ATIVAN,STATED" I NEED IT FOR MY ANXIETY" ATIVAN 0.5MG P.O GIVEN PRN ORDER. WILL CONT. MONITORING FOR SAFETY AND BEHAVIOR.
[2019-03-21 16:00] VITALS: BP 153/78
[2019-03-21 20:00] VITALS: BP 130/69
[2019-03-21] MEDS: QUETIAPINE FUMARATE 100 MG TABLET PO SCH (21:36)
[2019-03-21] MEDS: TEMAZEPAM 7.5 MG CAPSULE PO PRN (22:05)
--- NOTE | 2019-03-21 22:15 | NUR ---
GPS RN NOTE: PATIENT REQUEST FROM MEDICATION FOR SLEEP, RESTORIL 7.5MG 1 TAB ORAL GIVEN PER MD ORDER. WILL CONTINUE TO MONITOR.
[2019-03-22 08:00] VITALS: BP_SYST 138; BP_SYST 151; BP_DIAS 71
[2019-03-22] MEDS: FLUOXETINE HCL 20 MG CAPSULE PO SCH (08:49)
[2019-03-22] MEDS: METOPROLOL TARTRATE 50 MG TABLET PO SCH ×2 (08:49→16:15)
[2019-03-22] MEDS: GABAPENTIN 100 MG CAPSULE PO SCH ×3 (08:49→16:15)
[2019-03-22] MEDS: TRIAMCINOLONE ACETONIDE 0.1% TP SCH ×2 (08:51→16:12)
[2019-03-22] MEDS: KETOCONAZOLE SHAMPOO TP SCH (08:53)
[2019-03-22] MEDS: MAGNESIUM HYDROXIDE 30 ML UDC PO PRN (10:54)
--- NOTE | 2019-03-22 11:57 | NUR ---
PAUL faxed SNF referral to Mayra, immigration coordinator at [facility] Address: [address] [place] [address] for review.
[2019-03-22] MEDS: LORAZEPAM 0.5 MG TABLET PO PRN (15:20)
--- NOTE | 2019-03-22 15:25 | NUR ---
SW received a call from Belem, admissions representative at [facility] Address: [address] [place] [address] stating pt has been accepted to the facility.
[2019-03-22 16:00] VITALS: BP 143/72
--- NOTE | 2019-03-22 17:40 | NUR ---
gps supervisor forming department: notes pt came up, c/o rash on her abdomen and brought to my attention. noted with multiple lesions to abdomen area. pt has been refusing skin assessment until now. pt notice them yesterday, but did not tell the nurses on duty, stated, "i thought it was just a rash, but there is oozing now." cn reassessed abdomen lesions and asked if she has them when she was admitted, stated, "i had them but it wasn't like this before." pt allowed staff to assess full skin assessment and no other lesions noted. will defer to md to evaluate lesions/rash like tomorrow. will endorse accordingly. wound consult ordered. will continue to monitor.
[2019-03-22 20:00] VITALS: BP 115/60
[2019-03-22] MEDS: QUETIAPINE FUMARATE 100 MG TABLET PO SCH (21:23)
[2019-03-22] MEDS: TEMAZEPAM 7.5 MG CAPSULE PO PRN (21:24)
[2019-03-23 08:00] VITALS: BP 133/66
[2019-03-23] MEDS: KETOCONAZOLE SHAMPOO TP SCH (09:00)
[2019-03-23] MEDS: FLUOXETINE HCL 20 MG CAPSULE PO SCH (09:44)
[2019-03-23] MEDS: GABAPENTIN 100 MG CAPSULE PO SCH ×3 (09:44→17:28)
[2019-03-23] MEDS: TRIAMCINOLONE ACETONIDE 0.1% TP SCH ×2 (09:45→17:27)
[2019-03-23] MEDS: METOPROLOL TARTRATE 50 MG TABLET PO SCH ×2 (09:45→17:00)
[2019-03-23 16:00] VITALS: BP 125/60
[2019-03-23 20:00] VITALS: BP 128/70
[2019-03-23] MEDS: QUETIAPINE FUMARATE 100 MG TABLET PO SCH (21:05)
[2019-03-24 08:00] VITALS: BP 119/52
[2019-03-24] MEDS: KETOCONAZOLE SHAMPOO TP SCH (09:00)
[2019-03-24] MEDS: FLUOXETINE HCL 20 MG CAPSULE PO SCH (09:15)
[2019-03-24] MEDS: METOPROLOL TARTRATE 50 MG TABLET PO SCH ×2 (09:16→16:59)
[2019-03-24] MEDS: GABAPENTIN 100 MG CAPSULE PO SCH ×3 (09:16→16:58)
[2019-03-24] MEDS: TRIAMCINOLONE ACETONIDE 0.1% TP SCH ×2 (09:16→17:00)
[2019-03-24 16:00] VITALS: BP 129/76
[2019-03-24 19:53] VITALS: BP 154/73
[2019-03-24 20:00] VITALS: BP 154/73
[2019-03-24] MEDS: TEMAZEPAM 7.5 MG CAPSULE PO PRN (21:30)
[2019-03-24] MEDS: QUETIAPINE FUMARATE 100 MG TABLET PO SCH (21:30)
[2019-03-25 08:00] VITALS: BP 118/66
--- NOTE | 2019-03-25 08:11 | NUR ---
RN NOTE: PATIENT RECEIVED ALERT AWAKE ORIENTED. AMBULATORY IN ROOM & HALLWAY. NO S/S OF DISTRESS NOTED. SAFETY MEASURES OBSERVED. CONTINUE WITH PLAN OF CARE.
[2019-03-25] MEDS: KETOCONAZOLE SHAMPOO TP SCH (09:00)
[2019-03-25] MEDS ORDERED: Fluoxetine 10 mg capsule PO SCH (09:00)
[2019-03-25] MEDS: GABAPENTIN 100 MG CAPSULE PO SCH ×2 (09:08→12:24)
[2019-03-25 09:09] VITALS: BP 121/68
[2019-03-25] MEDS: METOPROLOL TARTRATE 50 MG TABLET PO SCH (09:09)
[2019-03-25] MEDS: TRIAMCINOLONE ACETONIDE 0.1% TP SCH (09:14)
--- NOTE | 2019-03-25 10:32 | NUR ---
DISCHARGE NOTE: Pt being discharged at 2:30pm via AMBULNZ to [facility] ([facility]) Address: [address] [place] [address] . Pt has no family to notify. Pts mood is euthymic with congruent affect and denied visual/auditory hallucinations and denied suicidal/homicidal ideations. Pt will be under the care of Psychiatrist: Dr. Waterman [address] [address] [phone] and Outboard System Operator: Dr. Cresencio Hyman [address] [place] [address] . The multidisciplinary exit care form was done, printed, signed, and given to the patient.
--- NOTE | 2019-03-25 12:00 | NUR ---
RN NOTE: DENIES SI/HI/AVH. AMBULATORY, INDEPENDENT WITH ADLS. MED COMPLAINT. NO CHANGES NOTED. CONTINUE TO MONITOR.
--- NOTE | 2019-03-25 15:30 | NUR ---
RN NOTE: PATIENT DISCHARGE TO [facility] ALERT AWAKE ORIENTED X 3. ON ROOM AIR, NO BREATHING DISTRESS NOTED. DENIES CHEST PAIN & DISCOMFORT. PATIENT REFUSED TO TAKE SKIN PICTURES. DRY SCABS TO LOWER ABDOMEN. SACROCOCCYX INTACT. AMBULATORY/INDEPENDENT. DISCHARGE INSTRUCTIONS GIVEN TO THE PATIENT, PT VERBALIZE TO UNDERSTAND PLAN OF CARE. EXIT CARE SIGNED BY THE PATIENT. REPORT GIVEN TO DARIO RN AT [facility]. DISCHARGE PACKAGE GIVEN TO AMBULANZ inventory associate and driver. DISCHARGE PATIENT WITH HOME MEDICATION & ALL BELONGINGS. NO IV LINE PRESENT. PATIENT DENIES SI/HI/AVH.
== END 2019-03-25 15:20 | DRG 885 ==
LOC: ER 15:34 → GPS 16:59
PROVIDERS: ADMIT Psychiatry & Neurology Psychiatry; ATTEND Student in an Organized Health Care Education/Training Program
DX: F31.5 Bipolar disorder, current episode depressed, severe, with psychotic features (principal); F23 Brief psychotic disorder; Z59.0 Homelessness; I10 Essential (primary) hypertension; F10.10 Alcohol abuse, uncomplicated; R74.0 Nonspecific elevation of levels of transaminase and lactic acid dehydrogenase [LDH]; K76.89 Other specified diseases of liver; Z87.891 Personal history of nicotine dependence; Z88.2 Allergy status to sulfonamides
CPT/HCPCS: 36415; 76700-TC; 80048-TC; 80053-TC; 80061-TC; 80076-TC; 85025-TC; 87081-TC; G0480

== ENCOUNTER 2019-04-10 19:54 | Inpatient (IN) | payer MEDICARE, OTHER ==
[~2019-04-10] VITALS: Ht 152.4 cm; Wt 56.2 kg
[~2019-04-10 19:54] MED LIST changes: +ACET-868 PO; +BISA10SU11 RC; +FLUO-120 PO; +GABA-532 PO; +MAGN400O6 PO; +NA P133E RC; +QUET50TA PO
[2019-04-10 21:22] LABS: APPEARANCE,URINE Clear (CLEAR); BLOOD, URINE Negative Ery/uL (NEGATIVE); COLOR,URINE Yellow (YELLOW); KETONES,URINE 40 (NEGATIVE); LEUKOCYTE ESTERASE ,URINE Negative (NEGATIVE); NITRITE, URINE Negative (NEGATIVE); PROTEIN,URINE Trace mg/dl (NEGATIVE); UGLUCOSE Negative (NEGATIVE)
[2019-04-10 21:23] LABS: BILIRUBIN,URINE NEGATIVE (NEGATIVE)
[2019-04-10 21:29] LABS: BACTERIA,URINE Few /HPF (None Seen); RBC,URINE 0-2 /HPF (0-2); SQUAMOUS EPITHELIAL CELL,UR Few /HPF (None Seen); WBC,URINE 0-2 /HPF (0-3)
[2019-04-10 21:35] LABS: BASOPHILS # (AUTO) 0.1 /CMM (0.0-0.2); BASOPHILS % (AUTO) 0.6 % (0.0-2.0); EOSINOPHILS % (AUTO) 0.6 % (0.0-6.0); HEMATOCRIT 41 % (33-45); LYMPHOCYTES # (AUTO) 2.7 /CMM (0.8-4.8); LYMPHOCYTES % (AUTO) 30.8 % (20.0-44.0); MEAN CORPUSCULAR HGB CONC 34 g/dl (31.0-36.0); MEAN CORPUSCULAR VOLUME 93 fL (82-100); MONOCYTES # (AUTO) 0.7 /CMM (0.1-1.30); MONOCYTES % (AUTO) 8.2 % (2.0-12.0); NEUTROPHILS # (AUTO) 5.3 /CMM (1.8-8.9); NEUTROPHILS % (AUTO) 59.8 % (43.0-81.0); PLATELET COUNT (AUTO) 209 /CMM (150-450); RED BLOOD CELL COUNT(AUTO) 4.43 MIL/uL (4.0-5.2); WHITE BLOOD COUNT (AUTO) 8.9 K/uL (4.3-11.0)
[2019-04-10 21:45] LABS: CARBON DIOXIDE 22 mmol/L (21-32); CHLORIDE 103 mmol/L (98-107); CREATININE 0.8 mg/dL (0.6-1.3); GLUCOSE 91 mg/dL (74-106); POTASSIUM 3.7 mmol/L (3.5-5.1); SODIUM SERUM 139 mmol/L (136-145); UREA NITROGEN, BLOOD 18 mg/dL (7-18)
[2019-04-10] MEDS ORDERED: LORAZEPAM 0.5 MG TABLET ONE (21:49)
[2019-04-10] MEDS ORDERED: ASPIRIN 81 MG TAB.CHEW ONE (21:50)
[2019-04-10 21:51] LABS: ALANINE AMINOTRANSFERASE 92 U/L (12-78); ALCOHOL, BLOOD < 3 mg/dL (0-0); ALKALINE PHOSPHATASE 86 U/L (46-116); ASPARTATE AMINOTRANSFERASE 66 U/L (15-37); BILIRUBIN,DIRECT 0.4 mg/dL (0.0-0.2); BILIRUBIN,TOTAL 0.9 mg/dL (0.2-1.0); TOTAL PROTEIN, SERUM 7.6 g/dL (6.4-8.2)
[2019-04-10 21:52] LABS: SALICYLATE 0.5 mg/dL (2.8-20.0)
[2019-04-10 21:53] LABS: ACETAMINOPHEN 0 ug/ml (10-30)
[2019-04-10] MEDS ORDERED: LORAZEPAM 0.5 MG TABLET PO ONE (22:00)
[2019-04-10] MEDS ORDERED: ASPIRIN 81 MG TAB.CHEW PO ONE (22:00)
--- NOTE | 2019-04-10 22:26 | NUR ---
BIBS. "FEELING DEPRESSED WITH THOUGHTS OF SUICIDE. NO PLAN AT THIS TIME' -SOB AOX4. VSS. AMBULATORY.
--- NOTE | 2019-04-10 23:46 | NUR ---
REPORT GIVEN TO GABRIEL LOVE.
[2019-04-11] MEDS ORDERED: TRAMADOL HCL 50 MG TABLET PO PRN
[2019-04-11] MEDS ORDERED: BISACODYL SUPP (10 MG) 10 MG/SUPP.RECT SUPP.RECT RC PRN
[2019-04-11] MEDS ORDERED: NITROGLYCERIN 0.4 MG/TAB BOTTLE SL PRN
[2019-04-11 00:45] VITALS: BP 155/77
--- NOTE | 2019-04-11 01:00 | NUR ---
GPS ADMISSION NOTE, RECEIVED PATIENT FROM [facility] PATIENT ARRIVED ON THIS UNIT AT 0100 VIA WHEELCHAIR WITH 1 PIANO CASE MAKER ESCORT. PATIENT ADMITTED ON A 5150 HOLD FOR DTS. PER HOLD PATIENT STATES SHE IS VERY DEPRESSED AND DOES NOT WANT TO LIVE. PATIENT IS ALERT AND ORIENTED IN ALL SPHERES, DEPRESSED, AND ANXIOUS. PATIENT HAS SUICIDAL IDEATIONS BUT HAS NO SPECIFIC PLAN EXCEPT SHE KEEPS SAYING SHE WANTS TO KILL HERSELF. PATIENT UNABLE TO CONTRACT FOR SAFETY AT THIS TIME. THE 5150 WAS REVIEWED AND THE DOCUMENTATION IN THE 5150 HOLD APPEARS TO REFLECT THE PRESENTATION OF THE PATIENT. UPON FACE TO FACE ASSESSMENT PATIENT IS NOTED TO BEING DISHEVELED, DISORGANIZED, DEPRESSED, ANXIOUS, COOPERATIVE, PARANOID, AND NEEDS REDIRECTION. PATIENT IS CURRENTLY LYING IN BED AWAKE, HAS NO S/S OR COMPLAINTS OF PAIN AT THIS TIME. PATIENT IS DISPLAYING NO S/S OF APPARENT DISTRESS. PATIENT BREATHING IS UNLABORED WITH EQUAL RISE AND FALL OF THE CHEST. PATIENT IS ALERT AND ORIENTATED X 3 ON ROOM AIR. PATIENT ASSISTED WITH TURING AND REPOSITIONING Q2HR AND PRN FOR COMFORT AND CIRCULATION. PATIENT HAS NO NEEDS AT THIS TIME. PATIENT DENIES HOMICIDAL IDEATIONS AND HAS NO PLAN FOR SUICIDE AT THIS TIME. PATIENT REFUSE TO SIGN PAPER WORK. PATIENT ADVISED OF HIS HOLD AND PATIENT RIGHTS BOOKLET GIVEN. PATIENT IS UNDER THE PSYCHIATRIC CARE OF DR. SINGH AND THE MEDICAL CARE OF DR AHUJA. PATIENT BELONGINGS WERE INVENTORIED AND CHECKED FOR CONTRABAND. ALL CONTRABAND REMOVED AND STORED IN PATIENT HALLWAY LOCKER. PATIENT ADVANCED DIRECTIVES PREFERENCE, IMMUNIZATIONS QUESTIONER, NECESSARY PAPERWORK COMPLETED. PATIENT SKIN ASSESSMENT COMPLETED. PATIENT ORIENTATED TO ROOM, FLOOR, AND STAFF WITH ALL QUESTIONS ANSWERED. PATIENT EDUCATED ON THE USE OF THE CALL DELEON. PATIENT BED SIDE RAILS ARE UP X 2 FOR SAFETY. PATIENT BED IS LOCKED, LOW AND I WILL CONTINUE TO MONITOR THIS PATIENT Q 15 MIN WITH THE HELP OF STAFF TO MAINTAIN SAFETY.
[2019-04-11] MEDS ORDERED: ACETAMINOPHEN 325 MG TABLET PO PRN ×2 (01:30)
[2019-04-11] MEDS ORDERED: MAGNESIUM HYDROXIDE 30 ML UDC PO PRN ×2 (01:30)
[2019-04-11] MEDS ORDERED: MAG HYDROX/AL HYDROX/SIMETH 30 ML UDC PO PRN (01:30)
[2019-04-11] MEDS ORDERED: ZOLPIDEM TARTRATE 5 MG TABLET PO PRN (01:30)
[2019-04-11 08:00] VITALS: BP 150/69
[2019-04-11] MEDS: METOPROLOL TARTRATE 50 MG TABLET PO SCH ×2 (08:25→17:24)
[2019-04-11] MEDS ORDERED: GABAPENTIN 100 MG CAPSULE PO SCH (09:00)
--- NOTE | 2019-04-11 10:34 | NUR ---
SW contacted Belem, mortgage coordinator at [facility] Address: [address] [place] [address] who stated pt may not return as she is a liability due to her leaving AMA twice since admitted on 03/25/19.
--- NOTE | 2019-04-11 11:09 | NUR ---
Psychosocial Note: I, Kaity Serrano OPERATIONS ACCOUNTANT, attest to the patient�s previous psychosocial information dated 03/19/19. Update On Events leading to Admission and Discharge Plan: Pt has returned to the hospital within 17 days of her previous discharge date 03/25/19. Pt was discharged to [facility] and per Belem, director of undergraduate admissions, pt left AMA twice. Per Belem, pt was allowed to return after she AMA the first time contingent upon pt following the facility rules. Per psychiatric hold, pt was BIB due to suicidal ideation and due to Depression and anxiety. Upon social work evaluation, pt stated that she did not want to be at that facility because she did not like it and they did not give her freedom. Per pt, "I didn't like where I was they wouldn't let me go out I need my freedom, I left because they wouldn't let me out and that lady was a looney." SW explained that due to her frequent SNF admissions she no longer has Medicare SNF days available and informed her that due to her leaving AMA [facility] will no longer accept her back. SW also informed her that she would have to pay for a board and care or Independent living facility due to pt exhausting her housing resources through Medicare/Medical. Pt then stated, "I am feeling suicidal and right now and I'm worried, this is what I do I'm homeless and I need to find a place that I like and that I'm happy with if not ill just leave." Pt then asked SW to leave due to her being mad and needing to think what she was going to do in regards to her discharge. The current plan is to increase the patient on her medications and assist with alternative placement. The pt appeared to be in a manic mood with hyperverbal speech and with an irritable affect. Pt appeared to be ambulatory, well-groomed and appropriately dressed. Pt is currently denying any visual or auditory hallucinations. PAUL will work with the pt and the MD regarding appropriate discharge planning. SW will form a safe and proper discharge.
[2019-04-11] MEDS ORDERED: GABAPENTIN 300 MG CAPSULE PO SCH (12:00)
[2019-04-11] MEDS: GABAPENTIN 300 MG CAPSULE PO SCH ×2 (12:41→17:24)
--- NOTE | 2019-04-11 15:11 | NUR ---
GPS RN NOTE: PT TRANSFER TO MS2 ROOM 208B GIVEN REPORT TO OYSELIN LOVE. PT IN STABLE CONDITION NO S/S DISTRESS NOTED.
--- NOTE | 2019-04-11 15:12 | NUR ---
RECEIVED PT FROM GPS OVERFLOW WITH 1:1 SITTER.PT IS ALERT AND ORIENTED X4.VERBALLY RESPONSIVE.AMBULATES WITH STEADY GAIT.WITH BRP.RESPIRATIONS NON LABORED IN ROOM AIR.NO SI/HI/AVH EPISODE.PLEASANT,COOPERATIVE AND COMPLIANT WITH STAFF.PT WATCHING TV AND WAS COMFORTABLY LYING IN BED DENYING ANY PAIN OR DISTRESS.DENIES ANY FEARS AND CONCERNS.SKIN INTACT WITH DISCOLORATIONS/ABRASIONS TO RFA AND RT UPPER THIGH WILL MONITOR.
--- NOTE | 2019-04-11 18:52 | NUR ---
PT COMFORTABLY RESTING IN BED WATCHING TV.MADE SOFT BM AND ATE DINNER WITH GOOD APPETITE.WITH 1:1 SITTER AT BEDSIDE.
--- NOTE | 2019-04-11 19:30 | NUR ---
MS/RN NOTES RECEIVED PT. LYING IN BED. PT. IS AWAKE, ALERT AND ORIENTED X3. BREATHING EVEN AND UNLABORED ON ROOM AIR. NO SOB, RESPIRATORY DISTRESS OR COMPLAINTS OF PAIN NOTED AT THIS TIME. PT. HAS NO SI/HI AT THIS TIME. PT. WITH 1:1 SITTER PRESENT AT BEDSIDE. WILL CONTINUE WITH Q15 MIN SAFETY CHECKS. WILL CONTINUE TO MONITOR.
[2019-04-11 21:59] VITALS: BP 134/64
[2019-04-11] MEDS: QUETIAPINE FUMARATE 100 MG TABLET PO SCH (22:54)
[2019-04-12 06:25] LABS: CALCIUM, SERUM 8.5 mg/dL (8.5-10.1); CREATININE 0.7 mg/dL (0.6-1.3); POTASSIUM 3.5 mmol/L (3.5-5.1)
--- NOTE | 2019-04-12 07:05 | NUR ---
MS/RN NOTES PT. IS LYING IN BED RESTING. BREATHING EVEN AND UNLABORED ON ROOM AIR. NO SOB, RESPIRATORY DISTRESS OR COMPLAINTS OF PAIN NOTED AT THIS TIME. PT. DENIES ANY SI/HI AT THIS TIME AND THROUGHOUT SHIFT. ALL PT. NEEDS MET. PT. WITH 1:1 SITTER PRESENT AT BEDSIDE. WILL ENDORSE TO DAYSHIFT NURSE FOR CONTINUITY OF CARE.
[2019-04-12 07:22] LABS: BASOPHILS % (AUTO) 0.3 % (0.0-2.0); EOSINOPHILS % (AUTO) 1.5 % (0.0-6.0); HEMATOCRIT 41 % (33-45); HEMOGLOBIN 13.6 g/dL (11.5-14.8); LYMPHOCYTES # (AUTO) 2.5 /CMM (0.8-4.8); LYMPHOCYTES % (AUTO) 47.7 % (20.0-44.0); MEAN CORPUSCULAR HGB CONC 33 g/dl (31.0-36.0); MEAN CORPUSCULAR VOLUME 93 fL (82-100); MONOCYTES # (AUTO) 0.5 /CMM (0.1-1.30); MONOCYTES % (AUTO) 9.6 % (2.0-12.0); NEUTROPHILS # (AUTO) 2.2 /CMM (1.8-8.9); NEUTROPHILS % (AUTO) 40.9 % (43.0-81.0); PLATELET COUNT (AUTO) 184 /CMM (150-450); RED BLOOD CELL COUNT(AUTO) 4.44 MIL/uL (4.0-5.2); WHITE BLOOD COUNT (AUTO) 5.3 K/uL (4.3-11.0)
--- NOTE | 2019-04-12 07:30 | NUR ---
RN OPENING NOTES RECEIVED PATIENT IN BED. PATIENT IS AWAKE, ALERT AND ORIENTED X3, ABLE TO MAKE NEEDS KNOWN. DENIED SI/HI. BREATHING EVEN AND UNLABORED, ON ROOM AIR SATTING 96%. NO SOB. NO COMPLAINTS OF PAIN NOTED AT THIS TIME. NOT IN ANY FORM OF DISTRESS. KEPT PATIENT SAFE AND COMFORTABLE. WITH 1:1 SITTER PRESENT AT BEDSIDE. WILL CONTINUE WITH Q15 MIN SAFETY CHECKS. WILL CONTINUE TO MONITOR ACCORDINGLY
[2019-04-12 08:00] VITALS: BP 126/72
[2019-04-12] MEDS: GABAPENTIN 300 MG CAPSULE PO SCH ×3 (09:18→16:44)
[2019-04-12] MEDS: METOPROLOL TARTRATE 50 MG TABLET PO SCH ×2 (09:18→16:46)
[2019-04-12] MEDS: FLUOXETINE HCL 20 MG CAPSULE PO SCH (09:18)
[2019-04-12] MEDS: NEOMY SULF/BACITRAC ZN/POLY 15 GM TUBE TP SCH ×2 (12:29→16:46)
[2019-04-12] MEDS ORDERED: MAGNESIUM CITRATE 296 ML BOTTLE PO ONE (13:30)
--- NOTE | 2019-04-12 15:32 | NUR ---
RN NOTES RECEIVED CALL FROM [facility]. PATIENT MRSA NARES POSITIVE. MARIE PARR DNP INFORMED, BACTROBAN ORDERED NOTED AND CARRIED OUT.
--- NOTE | 2019-04-12 15:33 | NUR ---
GROUP NOTE: SW encouraged pt to participate in group therapy on this present day to discuss "discharged planning." Pt refused to attend stating that she did not want to go back into the unit. Pt then stated that every time she thinks of her discharge plan she becomes worried and having thoughts of suicide. Pt asked SW to come back another time. SW attempted to provide pt with positive coping skills and problem solving options but pt refused.
[2019-04-12 16:00] VITALS: BP 147/66
--- NOTE | 2019-04-12 18:09 | NUR ---
RN NOTES TRANSFERRED PATIENT BACK TO GPS ROOM 217. REPORT GIVEN TO IVAN MCCORD. ALL BELONGINGS, MEDICATION, AND CHART HANDED TO THE NURSING STATION. PATIENT IN STABLE CONDITION. TRANSFERRED VIA WHEELCHAIR BY ROSA MARIA MORALES.
[2019-04-12 20:00] VITALS: BP 134/70
[2019-04-12] MEDS: QUETIAPINE FUMARATE 100 MG TABLET PO SCH (21:13)
[2019-04-12] MEDS: MUPIROCIN OINT 2% 22 GM TUBE SCH (21:14)
[2019-04-13 08:00] VITALS: BP 110/63
[2019-04-13] MEDS: METOPROLOL TARTRATE 50 MG TABLET PO SCH ×2 (08:11→16:38)
[2019-04-13] MEDS: MUPIROCIN OINT 2% 22 GM TUBE SCH ×2 (08:33→21:13)
[2019-04-13] MEDS: GABAPENTIN 300 MG CAPSULE PO SCH ×3 (08:34→16:37)
[2019-04-13] MEDS: FLUOXETINE HCL 20 MG CAPSULE PO SCH (08:34)
[2019-04-13] MEDS: NEOMY SULF/BACITRAC ZN/POLY 15 GM TUBE TP SCH ×2 (09:06→16:38)
--- NOTE | 2019-04-13 15:38 | NUR ---
GPS RN NOTES PT C/O PAIN IN LEFT KNEE. TELMA KOVACS.
[2019-04-13 16:00] VITALS: BP 132/62
[2019-04-13 20:00] VITALS: BP 148/74
[2019-04-13] MEDS: QUETIAPINE FUMARATE 100 MG TABLET PO SCH (21:13)
[2019-04-14 08:00] VITALS: BP 134/61
[2019-04-14] MEDS: METOPROLOL TARTRATE 50 MG TABLET PO SCH ×2 (08:21→17:17)
[2019-04-14] MEDS: FLUOXETINE HCL 20 MG CAPSULE PO SCH (08:21)
[2019-04-14] MEDS: GABAPENTIN 300 MG CAPSULE PO SCH ×3 (08:21→17:16)
[2019-04-14] MEDS: MUPIROCIN OINT 2% 22 GM TUBE SCH ×2 (08:23→17:17)
[2019-04-14] MEDS: NEOMY SULF/BACITRAC ZN/POLY 15 GM TUBE TP SCH ×2 (08:23→17:18)
[2019-04-14 15:59] VITALS: BP 147/65
[2019-04-14 20:47] VITALS: BP 152/68
[2019-04-14] MEDS: QUETIAPINE FUMARATE 100 MG TABLET PO SCH (21:25)
[2019-04-15] MEDS: LORAZEPAM 0.5 MG TABLET PO PRN ×3 (00:25→22:27)
[2019-04-15 08:00] VITALS: BP 141/60
[2019-04-15] MEDS: FLUOXETINE HCL 20 MG CAPSULE PO SCH (08:22)
[2019-04-15] MEDS: METOPROLOL TARTRATE 50 MG TABLET PO SCH ×2 (08:22→16:09)
[2019-04-15] MEDS: GABAPENTIN 300 MG CAPSULE PO SCH ×3 (08:23→16:09)
[2019-04-15] MEDS: MUPIROCIN OINT 2% 22 GM TUBE SCH ×2 (08:23→20:30)
[2019-04-15] MEDS: NEOMY SULF/BACITRAC ZN/POLY 15 GM TUBE TP SCH ×2 (08:24→16:10)
--- NOTE | 2019-04-15 10:36 | NUR ---
PAUL faxed SNF referral to [facility] Address: [address] [place] [address] for review.
--- NOTE | 2019-04-15 10:52 | NUR ---
GPS RN NOTE: PT FEELING RESTLESS AND ANXIOUS REQUESTING MEDICATION. ATIVAN 0.5 MG PO PRN GIVEN PER ORDER WILL CONTINUE MONITORING
--- NOTE | 2019-04-15 11:37 | NUR ---
SW received a call from eric Ireland at [facility] Address: [address] [place] [address] stating pt has been accepted to the facility.
--- NOTE | 2019-04-15 15:30 | NUR ---
Group Note: SW encouraged pt to participate in group therapy on 04/15/19 at 2pm to discuss discharged planning. Pt refused to attend group stating that the SW running the group is not her SW and therefore she would not be aware of her discharge plan. SW stated that she can discuss how she feels about her discharge plan since she is aware of it and she stated that she did not want to.
[2019-04-15 16:00] VITALS: BP 130/59
--- NOTE | 2019-04-15 19:38 | NUR ---
RN OPENING NOTES: RECEIVED PT ON ROOM AIR AND TOLERATING WELL. NO SOB NOTED. NO S/S OF DISTRESS. PT LAYING IN BED COMFORTABLY. PT ISOLATED FOR MRSA NARES. NO IV NOTED. BED KEPT IN LOW, LOCKED POSITION, AND SIDE RAILS X 2UP. WILL CONTINUE TO MONITOR PT.
[2019-04-15 20:12] VITALS: BP 117/62
[2019-04-15] MEDS: QUETIAPINE FUMARATE 100 MG TABLET PO SCH (21:17)
--- NOTE | 2019-04-15 22:28 | NUR ---
RN NOTES: PT VERBALIZING THAT SHE IS FEELING SOME ANXIETY AND RESTLESSNESS AND WOULD JUST LIKE TO GO TO SLEEP. PT WAS ADMINISTERED ATIVAN 0.5MG PO. WILL CONTINUE TO MONITOR.
--- NOTE | 2019-04-16 06:26 | NUR ---
RN CLOSING NOTES: ALL NEEDS WERE ATTENDED AND ANTICIPATED FOR. PT KEPT CLEAN, DRY, AND COMFORTABLE. NO SOB NOTED. NO S/S OF DISTRESS. PT ISOLATED FOR MRSA NARES. NO IV NOTED. BED KEPT IN LOW, LOCKED POSITION, AND SIDE RAILS X 2UP. WILL ENDORSE TO AM NURSE FOR MAUDE.
[2019-04-16 08:00] VITALS: BP 123/64
[2019-04-16] MEDS: FLUOXETINE HCL 20 MG CAPSULE PO SCH (08:59)
[2019-04-16] MEDS: GABAPENTIN 300 MG CAPSULE PO SCH ×3 (08:59→17:27)
[2019-04-16] MEDS: MUPIROCIN OINT 2% 22 GM TUBE SCH ×2 (08:59→21:49)
[2019-04-16] MEDS: METOPROLOL TARTRATE 50 MG TABLET PO SCH ×2 (08:59→17:27)
[2019-04-16] MEDS: NEOMY SULF/BACITRAC ZN/POLY 15 GM TUBE TP SCH ×2 (09:00→17:28)
--- NOTE | 2019-04-16 09:50 | NUR ---
DISCHARGE PLANNING: SW spoke with pt regarding her discharge plan, SW informed her that she had been accepted to [facility] Address: [address] [place] [address] and that it was the only facility who is able to accept her without Medicare Days. SW explained that if pt opposes to being discharged to this facility that pt will have to pay to go to a board and care or independent living facility. Pt stated that she agrees to go to this SNF and requested SW contact [facility] so they can drop off her belongings.
--- NOTE | 2019-04-16 09:53 | NUR ---
PAUL contacted Belem, business office coordinator at [facility] Address: [address] [place] [address] who stated she will speak to her team and have someone come and drop off pts belongings on this present day.
--- NOTE | 2019-04-16 15:15 | NUR ---
Group Note: Pt was encouraged to participate in group therapy on 04/16/19 at 2pm on the topic of support systems and their impact. The pt stated that she did not want to be involved because she is too concerned with her discharge plan. Pt also stated, "I do not need anyone." SW encouraged her to speak about her feelings behind that or how she is her on support but the pt refused.
[2019-04-16 16:00] VITALS: BP 137/69
[2019-04-16 21:07] VITALS: BP 135/58
[2019-04-16] MEDS: QUETIAPINE FUMARATE 100 MG TABLET PO SCH (21:49)
[2019-04-17] MEDS: LORAZEPAM 0.5 MG TABLET PO PRN ×3 (01:27→23:26)
[2019-04-17 08:00] VITALS: BP 135/54
[2019-04-17] MEDS: FLUOXETINE HCL 20 MG CAPSULE PO SCH (08:15)
[2019-04-17] MEDS: METOPROLOL TARTRATE 50 MG TABLET PO SCH ×2 (08:15→16:17)
[2019-04-17] MEDS: GABAPENTIN 300 MG CAPSULE PO SCH ×3 (08:16→16:15)
[2019-04-17] MEDS: NEOMY SULF/BACITRAC ZN/POLY 15 GM TUBE TP SCH ×2 (08:18→16:15)
[2019-04-17] MEDS: MUPIROCIN OINT 2% 22 GM TUBE SCH ×2 (08:18→20:28)
--- NOTE | 2019-04-17 13:52 | NUR ---
RN NOTES PT REQUESTED FOR ATIVAN, GIVEN 0.5MG ORDERED PRN. WILL CONTINUE TO MONITOR.
--- NOTE | 2019-04-17 15:29 | NUR ---
Group Notes: SW invited and encouraged patient ot attend todays support group regarding positive coping mechanisms being held in the activities room. Patient presented laying on her bed reading a book. Patient stated, "maybe later, I'm reading right now". SW respected patient's self-determination.
[2019-04-17 16:00] VITALS: BP 104/55
[2019-04-17 20:00] VITALS: BP 134/62
[2019-04-17] MEDS: QUETIAPINE FUMARATE 100 MG TABLET PO SCH (21:03)
[2019-04-18 08:00] VITALS: BP 159/69
[2019-04-18] MEDS: FLUOXETINE HCL 20 MG CAPSULE PO SCH (08:25)
[2019-04-18] MEDS: GABAPENTIN 300 MG CAPSULE PO SCH ×3 (08:26→16:50)
[2019-04-18] MEDS: METOPROLOL TARTRATE 50 MG TABLET PO SCH ×2 (08:26→16:50)
[2019-04-18] MEDS: NEOMY SULF/BACITRAC ZN/POLY 15 GM TUBE TP SCH ×2 (08:28→16:50)
[2019-04-18] MEDS: MUPIROCIN OINT 2% 22 GM TUBE SCH ×2 (08:28→21:15)
--- NOTE | 2019-04-18 08:38 | NUR ---
DR. SINGH GAVE AN ORDER TO D/C TO [facility] AND TO FOLLOW UP WITH PSYCH AND MEDICAL DOCTORS AND TO CONTINUE SAME MEDS INCLUDING PRN.
--- NOTE | 2019-04-18 11:05 | NUR ---
PAUL received a call from Ciaran, fleet coordinator at [facility] Address: [address] [place] [address] stating there is no female bed available on this present day. Ciaran stated that he is working on opening a female bed for tomorrow 04/19/19 but it is not guaranteed.
--- NOTE | 2019-04-18 12:39 | NUR ---
Dr. Waterman rescinded the discharge order. Facility doesn't have bed available today.
[2019-04-18 16:00] VITALS: BP 141/69
[2019-04-18 20:09] VITALS: BP 124/65
[2019-04-18] MEDS: QUETIAPINE FUMARATE 100 MG TABLET PO SCH (21:13)
[2019-04-19 08:00] VITALS: BP 132/65
[2019-04-19] MEDS: NEOMY SULF/BACITRAC ZN/POLY 15 GM TUBE TP SCH (08:59)
[2019-04-19] MEDS: MUPIROCIN OINT 2% 22 GM TUBE SCH (09:00)
[2019-04-19] MEDS: FLUOXETINE HCL 20 MG CAPSULE PO SCH (09:00)
[2019-04-19] MEDS: GABAPENTIN 300 MG CAPSULE PO SCH ×2 (09:00→13:18)
[2019-04-19] MEDS: METOPROLOL TARTRATE 50 MG TABLET PO SCH ×2 (09:00→15:42)
--- NOTE | 2019-04-19 11:31 | NUR ---
DISCHARGE NOTE: Pt will be discharging at 3:00pm via [facility] to [facility] Address: [address] [place] [address] . Pt has no family to notify. Pts mood is euthymic with congruent affect. Pt denied visual/auditory hallucinations and denied suicidal/homicidal ideation. Pt will be under the care of Psychiatrist: Dr. Radha Anne [address] [address], [place] [address] and Forest Science Professor: Dr. Valdo Bennett [address] [address] . The multidisciplinary exit care form was done, printed, signed, and given to the patient.
[2019-04-19] MEDS: LORAZEPAM 0.5 MG TABLET PO PRN (14:41)
[2019-04-19 16:00] VITALS: BP 169/74
--- NOTE | 2019-04-19 17:00 | NUR ---
GPS NURSING ASSISTANT NOTES Patient discharged for [facility] at this time. Patient in stable condition. VS stable with no acute distress. Breathing even and unlabored on room air with no respiratory distress. Skin assessment pictures taken and placed in chart. Denies pain. Denies SI/HI. Denies visual and auditory hallucinations. Reviewed and explained Medication reconciliation and discharge orders. Patient verbalized understanding. All belongings with Patient. Patient picked up by Ambulance Transport. Report given to Keegan LOCKHART.
--- NOTE | 2019-04-19 17:00 | NUR ---
GPS/RN PT DISCHARGED TO [facility] VIA AMBULANCE. PT IS AMBULATORY NO ACUTE DISTRESS, PROPERTY RETURNED. NO SI OR HI AT THE TIME OF DISCHARGE. REPORT GIVEN TO FACILITY BY ATTENDING NURSE.
== END 2019-04-19 17:00 | DRG 885 ==
LOC: ER 19:57 → GPS 04-11 00:23 → GPSOV2 04-11 14:35 → GPS 04-12 17:22
PROVIDERS: ADMIT Psychiatry & Neurology Psychiatry; ATTEND Hospitalist
DX: F31.5 Bipolar disorder, current episode depressed, severe, with psychotic features (principal); N17.0 Acute kidney failure with tubular necrosis; R45.851 Suicidal ideations; F41.9 Anxiety disorder, unspecified; I10 Essential (primary) hypertension; Z96.651 Presence of right artificial knee joint; Z87.891 Personal history of nicotine dependence; Z81.8 Family history of other mental and behavioral disorders; Z79.899 Other long term (current) drug therapy; Z59.0 Homelessness; Z88.1 Allergy status to other antibiotic agents; Z91.010 Allergy to peanuts; Z88.2 Allergy status to sulfonamides; Z88.8 Allergy status to other drugs, medicaments and biological substances; Z91.018 Allergy to other foods; F10.10 Alcohol abuse, uncomplicated; Y90.0 Blood alcohol level of less than 20 mg/100 ml; K59.00 Constipation, unspecified; M85.80 Other specified disorders of bone density and structure, unspecified site; L85.3 Xerosis cutis; S30.811A Abrasion of abdominal wall, initial encounter; S50.811A Abrasion of right forearm, initial encounter; X58.XXXA Exposure to other specified factors, initial encounter; Y92.9 Unspecified place or not applicable; G47.00 Insomnia, unspecified
CPT/HCPCS: 36415; 71045-TC; 80048-TC; 80061-TC; 80076-TC; 80305; 81000-TC; 84484-TC; 85025-TC; 87081-TC; 93970-TC; G0480

== ENCOUNTER 2019-05-29 16:39 | Emergency (ER) | payer MEDICARE, OTHER ==
[~2019-05-29] VITALS: Ht 152.4 cm; Wt 68.5 kg
--- NOTE | 2019-05-29 16:56 | NUR ---
"C/O R SHOULDER, BILA KNEE PAIN. ALSO STS WANT TO BE ADMITTED TO [facility] FOR ANXIETY AND INSOMIA" PT AAOX4, -SOB, NAD NOTED, VSS ,PENDING MD AGUILAL
--- NOTE | 2019-05-29 18:31 | NUR ---
TRUE DICKINSON CALLED FOR EVAL PER [facility] PUBLIC ADDRESS SYSTEM OPERATOR
[2019-05-29 19:03] LABS: BASOPHILS # (AUTO) 0.1 /CMM (0.0-0.2); BASOPHILS % (AUTO) 0.7 % (0.0-2.0); EOSINOPHILS % (AUTO) 1.2 % (0.0-6.0); HEMATOCRIT 47 % (33-45); HEMOGLOBIN 15.6 g/dL (11.5-14.8); LYMPHOCYTES # (AUTO) 3.8 /CMM (0.8-4.8); LYMPHOCYTES % (AUTO) 35.1 % (20.0-44.0); MEAN CORPUSCULAR HGB CONC 33 g/dl (31.0-36.0); MEAN CORPUSCULAR VOLUME 92 fL (82-100); MONOCYTES # (AUTO) 0.9 /CMM (0.1-1.30); MONOCYTES % (AUTO) 8.7 % (2.0-12.0); NEUTROPHILS # (AUTO) 5.9 /CMM (1.8-8.9); NEUTROPHILS % (AUTO) 54.3 % (43.0-81.0); PLATELET COUNT (AUTO) 212 /CMM (150-450); RED BLOOD CELL COUNT(AUTO) 5.11 MIL/uL (4.0-5.2); WHITE BLOOD COUNT (AUTO) 10.9 K/uL (4.3-11.0)
[2019-05-29 19:25] LABS: ALANINE AMINOTRANSFERASE 133 U/L (12-78); ALBUMIN 3.9 g/dL (3.4-5.0); ALCOHOL, BLOOD < 3 mg/dL (0-0); ALKALINE PHOSPHATASE 78 U/L (46-116); ASPARTATE AMINOTRANSFERASE 92 U/L (15-37); BILIRUBIN,DIRECT 0.2 mg/dL (0.0-0.2); BILIRUBIN,TOTAL 0.6 mg/dL (0.2-1.0); CALCIUM, SERUM 9.1 mg/dL (8.5-10.1); CARBON DIOXIDE 26 mmol/L (21-32); CHLORIDE 103 mmol/L (98-107); CREATININE 0.7 mg/dL (0.6-1.3); GLUCOSE 84 mg/dL (74-106); POTASSIUM 3.8 mmol/L (3.5-5.1); SODIUM SERUM 138 mmol/L (136-145); TOTAL PROTEIN, SERUM 7.7 g/dL (6.4-8.2); UREA NITROGEN, BLOOD 23 mg/dL (7-18)
[2019-05-29 19:27] LABS: APPEARANCE,URINE Clear (CLEAR); BILIRUBIN,URINE Negative (NEGATIVE); BLOOD, URINE Negative Ery/uL (NEGATIVE); COLOR,URINE Yellow (YELLOW); KETONES,URINE Trace (NEGATIVE); LEUKOCYTE ESTERASE ,URINE Moderate (NEGATIVE); NITRITE, URINE Negative (NEGATIVE); PROTEIN,URINE Negative (NEGATIVE); UGLUCOSE Negative (NEGATIVE)
[2019-05-29 19:30] LABS: ACETAMINOPHEN 0 ug/ml (10-30); SALICYLATE 0.6 mg/dL (2.8-20.0)
[2019-05-29 19:37] LABS: BACTERIA,URINE Moderate /HPF (None Seen); RBC,URINE 0-2 /HPF (0-2); SQUAMOUS EPITHELIAL CELL,UR Few /HPF (None Seen); WBC,URINE 21-50 /HPF (0-3)
[2019-05-29] MEDS ORDERED: CEPHALEXIN MONOHYDRATE 500 MG CAPSULE PO ONE (20:00)
--- NOTE | 2019-05-29 20:58 | NUR ---
PT ACCEPTED TO [facility]. [phone] ([facility]). ADMITTING MD DR HALL. ON HOLD FOR GD.
--- NOTE | 2019-05-29 21:06 | NUR ---
CALLED MARL[facility] FOR [facility] TRANSPORT. ETA [phone]. TRIP # [phone]
--- NOTE | 2019-05-29 21:24 | NUR ---
REPORT GIVEN TO NURSE AT [facility] PSYCH UN[facility]
--- NOTE | 2019-05-29 21:25 | NUR ---
NURSE NAME "PRUDENCE"
[2019-05-29 22:00] VITALS: BP 155/94
--- NOTE | 2019-05-29 22:00 | NUR ---
PT LEFT VIA PRIVATE AMBULANCE LEFT IN STABLE CONDITION, VSS, NAD.
== END 2019-05-29 23:16 ==
LOC: ER 16:42
DX: L73.9 Follicular disorder, unspecified (principal); N39.0 Urinary tract infection, site not specified; G89.29 Other chronic pain; M25.511 Pain in right shoulder; R74.0 Nonspecific elevation of levels of transaminase and lactic acid dehydrogenase [LDH]; I10 Essential (primary) hypertension; F41.9 Anxiety disorder, unspecified; F32.9 Major depressive disorder, single episode, unspecified; Z98.890 Other specified postprocedural states; Z91.010 Allergy to peanuts; Z88.2 Allergy status to sulfonamides; Z88.1 Allergy status to other antibiotic agents; Z91.018 Allergy to other foods; Z88.8 Allergy status to other drugs, medicaments and biological substances; Z91.09 Other allergy status, other than to drugs and biological substances; Z79.899 Other long term (current) drug therapy
CPT/HCPCS: 36415; 73030; 80048; 80076; 80305; 80307; 80329; 81001; 85025; 87086; 99285; G0480; 81000-TC

== ENCOUNTER 2019-06-28 01:19 | Emergency (ER) | payer MEDICARE, OTHER ==
[~2019-06-28] VITALS: Ht 152.4 cm; Wt 71.2 kg
--- NOTE | 2019-06-28 01:30 | NUR ---
PT AAOX4. AMBULATORY. PT C/O SI WITH NO PLAN. PT STATE SHE IS HEARING VOICES "I KEEP HEARING MY AUNT TELLING ME SHE WILL TAKE MY STUFF, MY CLOTHES." RR EVEN AND UNLABORED. NO ACUTE DISTRESS NOTED.
[2019-06-28 01:46] LABS: BASOPHILS # (AUTO) 0.1 /CMM (0.0-0.2); BASOPHILS % (AUTO) 0.8 % (0.0-2.0); EOSINOPHILS % (AUTO) 1.4 % (0.0-6.0); HEMATOCRIT 42 % (33-45); HEMOGLOBIN 13.9 g/dL (11.5-14.8); LYMPHOCYTES # (AUTO) 2.7 /CMM (0.8-4.8); MEAN CORPUSCULAR HGB CONC 33 g/dl (31.0-36.0); MEAN CORPUSCULAR VOLUME 93 fL (82-100); MONOCYTES # (AUTO) 0.8 /CMM (0.1-1.30); MONOCYTES % (AUTO) 8.3 % (2.0-12.0); NEUTROPHILS # (AUTO) 5.4 /CMM (1.8-8.9); NEUTROPHILS % (AUTO) 59.5 % (43.0-81.0); PLATELET COUNT (AUTO) 208 /CMM (150-450); RED BLOOD CELL COUNT(AUTO) 4.55 MIL/uL (4.0-5.2)
[2019-06-28 01:46] LABS: APPEARANCE,URINE Clear (CLEAR); BILIRUBIN,URINE Negative (NEGATIVE); BLOOD, URINE Negative Ery/uL (NEGATIVE); COLOR,URINE Yellow (YELLOW); KETONES,URINE Negative (NEGATIVE); LEUKOCYTE ESTERASE ,URINE Trace (NEGATIVE); NITRITE, URINE Negative (NEGATIVE); PROTEIN,URINE Negative (NEGATIVE); UGLUCOSE Negative (NEGATIVE); UROBILINOGEN,URINE 0.2 EU/dL (0.2)
[2019-06-28 01:54] LABS: CALCIUM, SERUM 8.8 mg/dL (8.5-10.1); CREATININE 0.7 mg/dL (0.6-1.3); POTASSIUM 3.9 mmol/L (3.5-5.1)
[2019-06-28 02:00] LABS: ALBUMIN 3.6 g/dL (3.4-5.0); BILIRUBIN,DIRECT 0.1 mg/dL (0.0-0.2); BILIRUBIN,TOTAL 0.3 mg/dL (0.2-1.0); SALICYLATE 0.8 mg/dL (2.8-20.0); TOTAL PROTEIN, SERUM 7.7 g/dL (6.4-8.2)
[2019-06-28 02:17] LABS: BACTERIA,URINE Few /HPF (None Seen); RBC,URINE 0-2 /HPF (0-2); SQUAMOUS EPITHELIAL CELL,UR Few /HPF (None Seen); WBC,URINE 51-80 /HPF (0-3)
--- NOTE | 2019-06-28 02:19 | NUR ---
PT SITTING IN BED. STATED "I WANT TO REST"
--- NOTE | 2019-06-28 02:47 | NUR ---
Patient is resting comfortably in bed with eyes closed. Easily aroused.
--- NOTE | 2019-06-28 04:05 | NUR ---
Patient is resting comfortably in bed with eyes closed. Easily aroused. VSS
--- NOTE | 2019-06-28 05:13 | NUR ---
Patient is resting comfortably in bed with eyes closed. Easily aroused. VSS
--- NOTE | 2019-06-28 07:37 | NUR ---
REPORT GIVEN TO NATE LOVE FOR MAUDE
--- NOTE | 2019-06-28 08:47 | NUR ---
Social service consult requested by Dr. White for homelessness. Pt. is a 73 year old female who came to [facility] wanting a place to stay. Pt. was evaluated by corn husker and is not suicidal or homicidal. PAUL met with the pt. bedside. Pt. is alert and oriented x 4. Pt. states she has nowhere to go now since she walked out of her shelter [facility] in [place] and took the bus and came to [facility] for admission/ placement. Pt. states she has been going from one shelter to another. SW informed pt. she is medically and psychiatrically cleared for discharge from ED. Pt. receives $950 in hybris monthly but won't have the funds until July 07. PAUL offered pt. homeless longterm placement, however pt. declined stating, she will find somewhere to go. Pt. states," I might go back to stay with my aunt." Pt. will be provided with a TAP card. Pt. was provided with the following homeless longterm/resources: [facility], [address] [place] [address] ; [facility], [address] ; [facility] Homeless Resource Directory which includes food stamps, transitional housing, showers and hot meals etc; Mental Health clinics such as [facility] ; [facility] Health ; Health clinics;[employer] and Alcohol treatment centers such as [facility], ; [facility] Substance Abuse Hotline and [facility] . Homeless Patient waiver form has been placed in the chart for pt. to sign upon discharge. KAMILAH Luna has been updated.
--- NOTE | 2019-06-28 09:09 | NUR ---
PT WAS SEEN BY BRENDA MILLER. MEDICALLY CLEARED. PT SIGNED HOMELESS WAIVER FORM. PT PROVIDED W/ TAP CARD. D/C IN STABLE CONDITION.
[2019-06-28 09:13] VITALS: BP 125/66
== END 2019-06-28 09:15 | disposition home or self-care (01) ==
LOC: ER 01:21
DX: F20.9 Schizophrenia, unspecified (principal); I10 Essential (primary) hypertension; F31.9 Bipolar disorder, unspecified; F41.9 Anxiety disorder, unspecified; F10.10 Alcohol abuse, uncomplicated; Y90.1 Blood alcohol level of 20-39 mg/100 ml; Z96.651 Presence of right artificial knee joint; Z79.899 Other long term (current) drug therapy; Z91.048 Other nonmedicinal substance allergy status; Z88.1 Allergy status to other antibiotic agents; Z91.010 Allergy to peanuts; Z88.6 Allergy status to analgesic agent; Z88.8 Allergy status to other drugs, medicaments and biological substances; Z91.018 Allergy to other foods
CPT/HCPCS: 36415; 80048; 80076; 80305; 80307; 80329; 81001; 85025; 87086; 99284; G0480; 81000-TC

== ENCOUNTER 2019-07-19 15:18 | Emergency (ER) | payer MEDICARE, OTHER ==
[~2019-07-19] VITALS: Ht 152.4 cm; Wt 68.0 kg
[~2019-07-19 15:18] MED LIST changes: -FLUO-120 PO; +FLUO20CA40 PO
--- NOTE | 2019-07-19 15:30 | NUR ---
BIB SELF C/O BILATERAL KNEE PAIN PER PT HEARING VOICES, DENIES SI, pt awake, alert, -sob, nad noted, pending md werner
[2019-07-19] MEDS ORDERED: ACETAMINOPHEN 325 MG TABLET PO ONE (17:30)
[2019-07-19] MEDS ORDERED: IBUPROFEN 400 MG TABLET PO ONE (17:30)
[2019-07-19] MEDS ORDERED: ACETAMINOPHEN 325 MG TABLET ONE (17:43)
[2019-07-19 17:44] LABS: BASOPHILS # (AUTO) 0.1 /CMM (0.0-0.2); BASOPHILS % (AUTO) 1.3 % (0.0-2.0); EOSINOPHILS % (AUTO) 2.1 % (0.0-6.0); HEMATOCRIT 40 % (33-45); HEMOGLOBIN 13.1 g/dL (11.5-14.8); LYMPHOCYTES # (AUTO) 3.3 /CMM (0.8-4.8); LYMPHOCYTES % (AUTO) 41.5 % (20.0-44.0); MEAN CORPUSCULAR HGB CONC 33 g/dl (31.0-36.0); MEAN CORPUSCULAR VOLUME 92 fL (82-100); MONOCYTES # (AUTO) 0.9 /CMM (0.1-1.30); MONOCYTES % (AUTO) 11.4 % (2.0-12.0); NEUTROPHILS # (AUTO) 3.5 /CMM (1.8-8.9); NEUTROPHILS % (AUTO) 43.7 % (43.0-81.0); PLATELET COUNT (AUTO) 269 /CMM (150-450); RED BLOOD CELL COUNT(AUTO) 4.35 MIL/uL (4.0-5.2); WHITE BLOOD COUNT (AUTO) 7.9 K/uL (4.3-11.0)
[2019-07-19] MEDS ORDERED: IBUPROFEN 400 MG TABLET ONE (17:44)
--- NOTE | 2019-07-19 18:00 | NUR ---
URINE COLLECTED AND SENT TO LAB
[2019-07-19 18:01] LABS: CALCIUM, SERUM 9.3 mg/dL (8.5-10.1); CARBON DIOXIDE 23 mmol/L (21-32); CHLORIDE 107 mmol/L (98-107); GLUCOSE 79 mg/dL (74-106); POTASSIUM 3.9 mmol/L (3.5-5.1); SODIUM SERUM 142 mmol/L (136-145); UREA NITROGEN, BLOOD 33 mg/dL (7-18)
[2019-07-19 18:06] LABS: ALANINE AMINOTRANSFERASE 74 U/L (12-78); ALBUMIN 3.7 g/dL (3.4-5.0); ALCOHOL, BLOOD < 3 mg/dL (0-0); ALKALINE PHOSPHATASE 74 U/L (46-116); ASPARTATE AMINOTRANSFERASE 55 U/L (15-37); BILIRUBIN,DIRECT 0.3 mg/dL (0.0-0.2); BILIRUBIN,TOTAL 0.7 mg/dL (0.2-1.0); TOTAL PROTEIN, SERUM 7.5 g/dL (6.4-8.2)
[2019-07-19 18:07] LABS: ACETAMINOPHEN 0 ug/ml (10-30); SALICYLATE 1.1 mg/dL (2.8-20.0)
[2019-07-19 18:08] LABS: APPEARANCE,URINE Clear (CLEAR); BILIRUBIN,URINE Negative (NEGATIVE); BLOOD, URINE Negative Ery/uL (NEGATIVE); COLOR,URINE Yellow (YELLOW); KETONES,URINE 40 (NEGATIVE); LEUKOCYTE ESTERASE ,URINE Small (NEGATIVE); NITRITE, URINE Negative (NEGATIVE); PH,URINE 5.5 (5.0-8.0); PROTEIN,URINE Trace mg/dl (NEGATIVE); UGLUCOSE Negative (NEGATIVE); UROBILINOGEN,URINE 0.2 EU/dL (0.2)
[2019-07-19 18:17] LABS: BACTERIA,URINE Few /HPF (None Seen); MUCUS,URINE Few /LPF (None Seen); RBC,URINE 0-2 /HPF (0-2); SQUAMOUS EPITHELIAL CELL,UR Few /HPF (None Seen)
--- NOTE | 2019-07-19 20:33 | NUR ---
PT ACCEPTED TO [facility] BY DR YOUNG. ROOM 316B. # FOR REPORT [phone]
--- NOTE | 2019-07-19 21:04 | NUR ---
ambul[facility] eta [id number] [facility] [id number]
--- NOTE | 2019-07-19 21:08 | NUR ---
called [facility], , spoke to shanae, per nurse states rn hemodialysis charge is currently busy at this time, instructed to call back in 15 mins.
--- NOTE | 2019-07-19 22:14 | NUR ---
report given to IVAN Adkins from [facility].
--- NOTE | 2019-07-19 23:44 | NUR ---
CALLED [facility] RE: TRANSPORT TO [facility]. ETA ADJUSTED TO 90-2HRS FROM NOW.
[2019-07-20] MEDS ORDERED: METOPROLOL TARTRATE 50 MG TABLET ONE (00:06)
[2019-07-20 00:08] VITALS: BP 158/68
--- NOTE | 2019-07-20 00:15 | NUR ---
[facility] AT BEDSIDE FOR TRANSPORT TO [facility].
[2019-07-20] MEDS ORDERED: METOPROLOL TARTRATE 50 MG TABLET PO ONE (00:30)
== END 2019-07-20 00:15 ==
LOC: ER 15:19
DX: R44.0 Auditory hallucinations (principal); F31.9 Bipolar disorder, unspecified; G89.29 Other chronic pain; M25.561 Pain in right knee; M25.562 Pain in left knee; E86.0 Dehydration; R79.89 Other specified abnormal findings of blood chemistry; I10 Essential (primary) hypertension; Z59.0 Homelessness; Z96.651 Presence of right artificial knee joint; Z88.8 Allergy status to other drugs, medicaments and biological substances; Z88.2 Allergy status to sulfonamides; Z88.1 Allergy status to other antibiotic agents; Z91.010 Allergy to peanuts; Z91.013 Allergy to seafood; Z79.899 Other long term (current) drug therapy
CPT/HCPCS: 36415; 80048; 80076; 80305; 80307; 80329; 81001; 85025; 87081; 87086; 99285; G0480; 81000-TC

== ENCOUNTER 2020-05-12 11:35 | Inpatient (IN) | payer MEDICARE, OTHER ==
[~2020-05-12] VITALS: Ht 152.4 cm; Wt 58.5 kg
[~2020-05-12 11:35] MED LIST changes: -FLUO20CA40 PO; +FLUO20CA42 PO
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
[2020-05-12 12:20] LABS: BASOPHILS % (AUTO) 0.8 % (0.0-2.0); EOSINOPHILS % (AUTO) 0.2 % (0.0-6.0); HEMATOCRIT 37 % (33-45); HEMOGLOBIN 12.5 g/dL (11.5-14.8); LYMPHOCYTES # (AUTO) 1.2 /CMM (0.8-4.8); LYMPHOCYTES % (AUTO) 24.3 % (20.0-44.0); MEAN CORPUSCULAR HGB CONC 34 g/dl (31.0-36.0); MEAN CORPUSCULAR VOLUME 92 fL (82-100); MONOCYTES # (AUTO) 0.4 /CMM (0.1-1.30); MONOCYTES % (AUTO) 8.7 % (2.0-12.0); NEUTROPHILS # (AUTO) 3.3 /CMM (1.8-8.9); PLATELET COUNT (AUTO) 199 /CMM (150-450); RED BLOOD CELL COUNT(AUTO) 4.08 MIL/uL (4.0-5.2); WHITE BLOOD COUNT (AUTO) 4.9 K/uL (4.3-11.0)
--- NOTE | 2020-05-12 12:24 | NUR ---
COVID SWAB SENT TO LAB.
[2020-05-12] MEDS ORDERED: TEMA15CA5 PO (12:25)
[2020-05-12 12:31] LABS: CALCIUM, SERUM 7.7 mg/dL (8.5-10.1); CARBON DIOXIDE 24 mmol/L (21-32); CHLORIDE 103 mmol/L (98-107); GLUCOSE 95 mg/dL (74-106); POTASSIUM 4.7 mmol/L (3.5-5.1); SODIUM SERUM 135 mmol/L (136-145); UREA NITROGEN, BLOOD 12 mg/dL (7-18)
[2020-05-12 12:44] LABS: ALANINE AMINOTRANSFERASE 48 U/L (12-78); ALBUMIN 3.1 g/dL (3.4-5.0); ALKALINE PHOSPHATASE 46 U/L (46-116); ASPARTATE AMINOTRANSFERASE 60 U/L (15-37); B-TYPE NATRIURETIC PEPTIDE 355 PG/ML (0-125); BILIRUBIN,TOTAL 0.5 mg/dL (0.2-1.0)
[2020-05-12 13:50] LABS: C-REACTIVE PROTEIN 0.6 mg/dL (0.0-0.9); CREATINE KINASE, TOTAL 111 U/L (26-192); FERRITIN 272 ng/mL (8-388)
[2020-05-12 14:19] LABS: APPEARANCE,URINE Clear (CLEAR); BILIRUBIN,URINE Negative (NEGATIVE); BLOOD, URINE Negative Ery/uL (NEGATIVE); COLOR,URINE Yellow (YELLOW); KETONES,URINE Negative (NEGATIVE); LEUKOCYTE ESTERASE ,URINE Negative (NEGATIVE); NITRITE, URINE Negative (NEGATIVE); PH,URINE 6.5 (5.0-8.0); PROTEIN,URINE 30 mg/dl (NEGATIVE); UGLUCOSE Negative (NEGATIVE); UROBILINOGEN,URINE 0.2 EU/dL (0.2)
[2020-05-12 14:29] LABS: BACTERIA,URINE Few /HPF (None Seen); RBC,URINE 0-2 /HPF (0-2); SQUAMOUS EPITHELIAL CELL,UR Few /HPF (None Seen); WBC,URINE 0-2 /HPF (0-3)
--- NOTE | 2020-05-12 14:33 | NUR ---
HALFTONE OPERATOR PAGED.
[2020-05-12] MEDS ORDERED: LEVOFLOXACIN 750 MG /D5W 150ML PIGGYBACK IV ONE (15:00)
--- NOTE | 2020-05-12 15:25 | NUR ---
GOT BED 201
[2020-05-12 16:00] VITALS: BP 151/73
[2020-05-12 16:35] VITALS: BP 151/73
--- NOTE | 2020-05-12 16:54 | NUR ---
TYPECASTING MACHINE OPERATOR NOTE RECEIVED PATIENT FROM ER WITH DX SOB UNDER CARE DNP IAM ALEJANDRO , PATIENT ALERT ,ORIENTED X4 ,PLACED ON TELE MONITOR ST HR 63, ON RA, NO SOB NOTED AT THIS TIME, NO C\O DISCOMFORT AT THIS TIME , VS TAKEN AND BELONGING CHECKED , HOSPITAL ORIENTATION DONE , BED IN LOWEST AD LOCKED POSITION , PLAN OF CAR DISCUSSED WITH PATIENT WILL CONT TO MONITOR
--- NOTE | 2020-05-12 17:01 | NUR ---
MARKETING ASSISTANT MANAGER NOTE CALLED TO [facility] FOR ADMISSION ORDERS, WILL F\U
--- NOTE | 2020-05-12 17:45 | NUR ---
telephone cleaner note called to dr giancarlo Siddiqi dnp informed about admission orders stated that will do soon, will f\u, refused to place [facility] matrass
[2020-05-12] MEDS ORDERED: CEFTRIAXONE 1 G in IV D5W 50 ML IV SCH (18:30)
[2020-05-12] MEDS ORDERED: ONDANSETRON HCL/PF 4 MG/2 ML VIAL IVP PRN (18:30)
[2020-05-12] MEDS ORDERED: ENOXAPARIN SODIUM 40 MG/0.4 ML DISP.SYRIN SQ SCH (18:30)
[2020-05-12] MEDS ORDERED: Z GUARD REMEDY 2 OZ OINT TP PRN (18:30)
--- NOTE | 2020-05-12 18:48 | NUR ---
telecommunications switch technician note all needs attended
[2020-05-12] MEDS: CEFTRIAXONE 1 G in IV D5W 50 ML IV SCH (18:57)
[2020-05-12] MEDS: DEXAMETHASONE SOD PHOSPHATE 10 MG/ML VIAL IV SCH (18:58)
--- NOTE | 2020-05-12 19:25 | NUR ---
ROOMING HOUSE OPERATOR NOTE ON TELE MONITOR ST [id number] , NO C\O CHEST PAIN ,CALLED TO DR IAM PATTEN WITH ORDER TO GIVE BOLUS 250 NS AND XANAX 0.5 MG PO NOW , ORDER CARRIED OUT
[2020-05-12] MEDS ORDERED: ALPRAZOLAM 0.25 MG TABLET PO ONE (19:30)
[2020-05-12] MEDS ORDERED: IV NS 0.9% 250 ML IV ONE (19:30)
--- NOTE | 2020-05-12 19:31 | NUR ---
ASSISTANT WOMEN'S ROWING COACH CLOSING NOTE: PT IN BED. ALERT AND ORIENTED X4. PT ON ROOM AIR WITH NO COMPLAINTS OF SOB OR SIGNS OF RESPIRATORY DISTRESS. O2 SATURATION 100% ON RA. PT AMBULATORY AND ABLE TO USE BATHROOM. SKIN INTACT. PATIENT HR INCREASED TO 150S AFTER ARRIVING WITH PULSE IN 70s, STATES SHE IS AGITATED, MD ALEJANDRO MADE AWARE, ORDER OF 0.5 MG XANAX AND A NS 250 ML BOLUS RECEIVED. ENDORSED TO NEXT SHIFT FOR MAUDE. PT HR LOWERED TO 70s UPON REASSESSMENT. PT HAS RAC #20 PATENT AND INTACT, INFUSING ROCEPHIN AT 100 ML/HOUR. PT IN LOCKED AND LOWEST POSITION, CALL LIGHT WITHIN REACH. WILL ENDORSE TO ONCOMING NURSE ALL FURTHER NEEDS.
--- NOTE | 2020-05-12 19:32 | NUR ---
CUSTOMER SERVICE AGENT NOTE EKG DONE REPORTED TO DR IAM PATTEN, NO NEW ORDER GIVEN AT THIS TIME , WILL CONT TO MONITOR
--- NOTE | 2020-05-12 19:40 | NUR ---
MINE EXPERT OPENING NOTE, PATIENT IN BED, AWAKE A/O X4, ON ROOM AIR BREATHING EVEN AND UNLABORED, NO SOB OR S/S OF RESPIRATORY DISTRESS/PAIN OR ANY DISCOMFORT, O2 SATURATION 100%, NSR WITH HR IN 80S AT THIS TIME, GETTING EKG FOR INCREASED FOR EVALUATION OF INCREASED HR, WILL ADMINISTER 250ML NS BOLUS AND 0.5 MG XANAX ORDERED, RAC #20 PATENT AND INTACT, NSR ON EKG AND IAM FLAVIA AWAKE, BED LOCKED AND LOWEST POSITION, CALL LIGHT WITHIN REACH, WILL CONTINUE TO MONITOR CLOSELY.
--- NOTE | 2020-05-12 19:45 | NUR ---
ORDER TAKER NOTE 0.9 NS BOLUS GIVEN ORDERED. PT TOLERATING WELL.
[2020-05-12 20:00] VITALS: BP 143/72
[2020-05-12] MEDS: QUETIAPINE FUMARATE 25 MG TABLET PO SCH (22:11)
[2020-05-12] MEDS: TEMAZEPAM 15 MG CAPSULE PO PRN (22:17)
[2020-05-13] VITALS: BP 117/63
[2020-05-13 04:00] VITALS: BP 124/77
--- NOTE | 2020-05-13 06:38 | NUR ---
COMMUNITY LEADER CLOSING NOTE, PATIENT IN BED, ASLEEP AT THIS TIME, BUT AROUSES TO VERBAL STIMULI, ON ROOM AIR BREATHING EVEN AND UNLABORED, NO SOB OR S/S OF RESPIRATORY DISTRESS/PAIN OR ANY DISCOMFORT, O2 SATURATION 98-100% THROUGHOUT THE NIGHT, NSR WITH HR IN 50-70S THROUGHOUT THE NIGHT, NO SIGNIFICANT CHANGE IN CONDITION DURING THE NIGHT, BED LOCKED AND LOWEST POSITION, CALL LIGHT WITHIN REACH, ALL NEEDS RENDERED, WILL ENDORSE CONTINUITY OF CARE TO ONCOMING NURSE.
[2020-05-13 06:54] LABS: BASOPHILS % (AUTO) 1.1 % (0.0-2.0); HEMATOCRIT 41 % (33-45); HEMOGLOBIN 13.5 g/dL (11.5-14.8); LYMPHOCYTES # (AUTO) 0.8 /CMM (0.8-4.8); LYMPHOCYTES % (AUTO) 33.8 % (20.0-44.0); MEAN CORPUSCULAR HGB CONC 33 g/dl (31.0-36.0); MEAN CORPUSCULAR VOLUME 90 fL (82-100); MONOCYTES # (AUTO) 0.2 /CMM (0.1-1.30); MONOCYTES % (AUTO) 7.5 % (2.0-12.0); NEUTROPHILS # (AUTO) 1.3 /CMM (1.8-8.9); NEUTROPHILS % (AUTO) 57.6 % (43.0-81.0); PLATELET COUNT (AUTO) 188 /CMM (150-450); RED BLOOD CELL COUNT(AUTO) 4.55 MIL/uL (4.0-5.2); WHITE BLOOD COUNT (AUTO) 2.3 K/uL (4.3-11.0)
[2020-05-13 07:37] LABS: ALBUMIN 2.8 g/dL (3.4-5.0); BILIRUBIN,TOTAL 0.2 mg/dL (0.2-1.0); CALCIUM, SERUM 8.2 mg/dL (8.5-10.1); CREATININE 0.7 mg/dL (0.6-1.3); MAGNESIUM 2.4 mg/dL (1.8-2.4); PHOSPHORUS 3.4 mg/dL (2.5-4.9); POTASSIUM 4.3 mmol/L (3.5-5.1); TOTAL PROTEIN, SERUM 7.2 g/dL (6.4-8.2)
[2020-05-13 08:00] VITALS: BP 100/57
--- NOTE | 2020-05-13 08:00 | NUR ---
RN RECEIVED PT IN BED AWAKE ALERT, NO DISTRESS NOTED SAFETY MEASURES TAKEN CALL LIGHT W/ IN REACH WILL MONITOR.
[2020-05-13] MEDS: ACETAMINOPHEN 325 MG TABLET PO PRN (08:17)
[2020-05-13] MEDS: DEXAMETHASONE SOD PHOSPHATE 10 MG/ML VIAL IV SCH (08:17)
[2020-05-13] MEDS: METOPROLOL TARTRATE 50 MG TABLET PO SCH ×2 (08:18→16:22)
[2020-05-13] MEDS ORDERED: GABAPENTIN 100 MG CAPSULE PO SCH (09:00)
[2020-05-13 12:00] VITALS: BP 141/67
[2020-05-13] MEDS: GABAPENTIN 100 MG CAPSULE PO SCH ×2 (13:25→16:23)
--- NOTE | 2020-05-13 15:00 | NUR ---
This SW spoke with the patient via patient's phone. Patient confirmed demographics including date of and social security number. Per patient, she was living at [facility]. Per patient, she was asked to leave because [facility] will be going under renovations. Per patient, she is currently residing at [facility] and has been there for 10 days. Per patient, she mainly slept and watched TV. Per patient, "I had to come to the hospital because I couldn't make it if I didn't". Patient would like assistance in finding a new assisted living facility. Per patient, she would pay $800 a month and would like to stick to that budget. SW to speak with Case Management to follow-up on this request.
[2020-05-13 16:21] VITALS: BP 133/74
[2020-05-13] MEDS: CEFTRIAXONE 1 G in IV D5W 50 ML IV SCH (17:35)
--- NOTE | 2020-05-13 19:30 | NUR ---
QUALITY LEAD NOTES RECEIVED ON BED A/O X4,WATCHING TV PROGRAM,BREATHING REGULAR,NOT IN ANY FORM OF DISTRESS.DENIES SOB,NO EPISODE OF COUGHING NOTED.03 SAT 97% ON ROOM AIR.ISOLATION PRECAUTION PENDING PCR COVID TEST RESULT DONE ON 05/12/2020.AMBULATORY WITH STEADY GAIT.SALINE LOCK RIGHT AC INTACT AND PATENT.CALL LIGHT IN REACH,NEEDS ANTICIPATED.
[2020-05-13 20:00] VITALS: BP 143/71
[2020-05-13] MEDS: ENOXAPARIN SODIUM 40 MG/0.4 ML DISP.SYRIN SQ SCH (20:59)
--- NOTE | 2020-05-13 21:00 | NUR ---
CLINICAL REVIEW NURSE NOTES DUE LOVENOX ADMINISTERED SQ ON LEFT UPPER QUADRANT
--- NOTE | 2020-05-13 21:50 | NUR ---
VICTIMS ADVOCATE CLERK/SPECIALIST NOTES REPORTED BY LAB,PCR TEST FOR COVID 19,POSITIVE.NURSING HOSPITALITY SERVICES MANAGER NINA MADE AWARE.DR VITALE MADE AWARE.
[2020-05-13] MEDS: QUETIAPINE FUMARATE 25 MG TABLET PO SCH (22:07)
[2020-05-13] MEDS: TEMAZEPAM 15 MG CAPSULE PO PRN (22:18)
--- NOTE | 2020-05-13 22:18 | NUR ---
OIL AND GAS EXPLORATION TECHNICIAN NOTES C/O INSOMNIA,RESTORIL 15MG PO GIVEN ORDERED, AND PER PATIENT REQUEST.
[2020-05-14] VITALS (8 sets, daily range): BP systolic 126–150; BP diastolic 60–75
--- NOTE | 2020-05-14 06:47 | NUR ---
TEXTILE STYLIST NOTES RESTING COMFORTABLY ON BED,ABLE TO WALK,MOVE AROUND INSIDE HER ROOM,NO SOB,MAINTAINS ON ISOLATION PRECAUTION FOR COVID 19 POSITIVE,PATIENT AWARE,COMPLIANT OF WEARING MASK PRECAUTIONARY MEASURES.AFEBRILE.IN NO ACUTE DISTRESS.WILL ENDORSE TO DAY NURSE FOR MAUDE.
[2020-05-14 06:54] LABS: BASOPHILS # (AUTO) 0.1 /CMM (0.0-0.2); BASOPHILS % (AUTO) 0.6 % (0.0-2.0); HEMATOCRIT 40 % (33-45); LYMPHOCYTES # (AUTO) 1.1 /CMM (0.8-4.8); LYMPHOCYTES % (AUTO) 11.2 % (20.0-44.0); MEAN CORPUSCULAR HGB CONC 33 g/dl (31.0-36.0); MEAN CORPUSCULAR VOLUME 91 fL (82-100); MONOCYTES # (AUTO) 0.6 /CMM (0.1-1.30); MONOCYTES % (AUTO) 6.4 % (2.0-12.0); NEUTROPHILS % (AUTO) 81.8 % (43.0-81.0); PLATELET COUNT (AUTO) 202 /CMM (150-450); RED BLOOD CELL COUNT(AUTO) 4.35 MIL/uL (4.0-5.2); WHITE BLOOD COUNT (AUTO) 9.8 K/uL (4.3-11.0)
[2020-05-14 07:13] LABS: CALCIUM, SERUM 8.8 mg/dL (8.5-10.1); CREATININE 0.9 mg/dL (0.6-1.3); MAGNESIUM 2.2 mg/dL (1.8-2.4); PHOSPHORUS 4.1 mg/dL (2.5-4.9); POTASSIUM 3.9 mmol/L (3.5-5.1)
--- NOTE | 2020-05-14 07:25 | NUR ---
MEDICAL SERVICES MANAGER OPENING NOTE PATIENT IN BED RESTING COMFORTABLY. PATIENT IN NO ACUTE DISTRESS. NO SOB NOTED. PATIENT BREATHING IS EVEN AND UNLABORED. PATIENT ON CARDIAC MONITORING READING SINUS RHYTHM HR 77. PATIENT HOB IS ELEVATED. PATIENT SAFETY PRECAUTIONS IN PLACE. ISOLATION PRECAUTIONS MAINTAINED. PATIENT BED IS LOCKED AND IN LOWEST POSITION. CALL LIGHT WITHIN REACH. WILL CONTINUE TO MONITOR.
[2020-05-14] MEDS: GABAPENTIN 100 MG CAPSULE PO SCH ×3 (08:11→17:10)
[2020-05-14] MEDS: DEXAMETHASONE SOD PHOSPHATE 10 MG/ML VIAL IV SCH (08:12)
[2020-05-14] MEDS: METOPROLOL TARTRATE 50 MG TABLET PO SCH ×2 (08:12→17:10)
--- NOTE | 2020-05-14 09:40 | NUR ---
RN NOTE PATIENT ABLE TO HAVE BED BATH AND NEEDS AND CONCERNS ADDRESSED AT THIS TIME.
[2020-05-14] MEDS: ACETAMINOPHEN 325 MG TABLET PO PRN (10:50)
--- NOTE | 2020-05-14 10:51 | NUR ---
RN NOTE PATIENT REQUESTING TYLENOL PRN ORDERED FOR HEADACHE 5/10. TYLENOL PRN ORDERED GIVEN.
[2020-05-14] MEDS: CEFTRIAXONE 1 G in IV D5W 50 ML IV SCH (17:36)
--- NOTE | 2020-05-14 18:41 | NUR ---
SENIOR OFFICE ASSISTANT CLOSING NOTE PATIENT IN BED RESTING COMFORTABLY. PATIENT IN NO ACUTE DISTRESS. NO SOB NOTED. PATIENT BREATHING IS EVEN AND UNLABORED. PATIENT ON CARDIAC MONITORING READING SINUS RHYTHM HR 61. PATIENT KEPT CLEAN, DRY, AND COMFORTABLE THROUGHOUT SHIFT. NEEDS AND CONCERNS ADDRESSED. EXPLAINED ALL DUE MEDS. PATIENT HOB IS ELEVATED. PATIENT SAFETY PRECAUTIONS IN PLACE. ISOLATION PRECAUTIONS MAINTAINED. PATIENT BED IS LOCKED AND IN LOWEST POSITION. CALL LIGHT WITHIN REACH. WILL ENDORSE CARE TO PM SHIFT FOR MAUDE.
--- NOTE | 2020-05-14 19:30 | NUR ---
TELE/RN OPENING NOTES: RECEIVED PATIENT RESTING IN BED COMFORTABLY. A/OX4. VERBALLY RESPONSIVE AND ABLE TO MAKE NEEDS KNOWN. PATIENT IN NO ACUTE DISTRESS. SOB NOTED. BREATHING IS EVEN AND UNLABORED. ON CARDIAC MONITORING READING SINUS RHYTHM HR ON THE 70S. PATIENT HOB IS ELEVATED. PATIENT SAFETY PRECAUTIONS IN PLACE. ISOLATION PRECAUTIONS MAINTAINED. PATIENT BED IS LOCKED AND IN LOWEST POSITION. CALL LIGHT WITHIN REACH. WILL CONTINUE TO MONITOR ACCORDINGLY.
[2020-05-14] MEDS: ENOXAPARIN SODIUM 40 MG/0.4 ML DISP.SYRIN SQ SCH (21:56)
[2020-05-14] MEDS: QUETIAPINE FUMARATE 25 MG TABLET PO SCH (21:57)
[2020-05-14] MEDS: TEMAZEPAM 15 MG CAPSULE PO PRN (22:59)
--- NOTE | 2020-05-14 23:00 | NUR ---
TELE/RN NOTES: PT REQUESTED FOR SLEEPING MEDICATION. ADMINISTERED RESTORIL 15MG PO PRN ORDERED FOR SLEEP. VS WNL, TOLERATED WELL. WILL CONTINUE TO MONITOR.
[2020-05-15] VITALS (11 sets, daily range): BP systolic 113–149; BP diastolic 59–71
--- NOTE | 2020-05-15 06:28 | NUR ---
TELE/RN CLOSING NOTES: PATIENT REMAINS IN BED COMFORTABLE, A/OX4. VERBALLY RESPONSIVE. NO ACUTE DISTRESS. SOB NOTED. BREATHING IS EVEN AND UNLABORED. ON CARDIAC MONITORING READING SINUS RHYTHM HR ON THE 70S. PATIENT HOB IS ELEVATED. PATIENT SAFETY PRECAUTIONS IN PLACE. ISOLATION PRECAUTIONS MAINTAINED. PATIENT BED IS LOCKED AND IN LOWEST POSITION. CALL LIGHT WITHIN REACH. ALL DUE MEDS GIVEN ORDERED. ALL NURSING NEEDS MET AND RENDERED. WILL ENDORSE TO DAY SHIFT FOR MAUDE.
[2020-05-15 07:12] LABS: FERRITIN 235 ng/mL (8-388)
--- NOTE | 2020-05-15 07:16 | NUR ---
SPREADER OPENING NOTES RECEIVED PATIENT IN BED, ASLEEP. PATIENT IN BREATHING ON ROOM AIR; BREATHING IS EVEN AND UNLABORED; NO SOB NOTED AT THIS TIME. NO S/S OF PAIN SUCH MOANING, FACIAL GRIMACING OR GUARDING. CURRENT MONITOR READING OF SINUS DAVION 52 BPM. RAC IV ACCESS G # 20 PRESENT AND INTACT. SAFETY PRECAUTIONS IN PLACE; BED IN LOW POSITION AND LOCKED, RAILS UP X2, CALL LIGHT WITHIN REACH. WILL CONTINUE TO MONITOR PATIENT.
[2020-05-15] MEDS: METOPROLOL TARTRATE 50 MG TABLET PO SCH ×2 (08:40→17:00)
[2020-05-15] MEDS: DEXAMETHASONE SOD PHOSPHATE 10 MG/ML VIAL IV SCH (08:41)
[2020-05-15] MEDS: GABAPENTIN 100 MG CAPSULE PO SCH ×3 (08:41→17:03)
--- NOTE | 2020-05-15 17:00 | NUR ---
DATASTAGE ARCHITECT NOTES 1700 LOPRESSOR HELD DUE TO BRADYCARDIA. HR 53 BP 140/71 WILL CONTINUE TO MONITOR
[2020-05-15] MEDS: CEFTRIAXONE 1 G in IV D5W 50 ML IV SCH (17:30)
--- NOTE | 2020-05-15 18:39 | NUR ---
INSURANCE VERIFICATION SPECIALIST CLOSING NOTES PATIENT REMAINS IN BED, AWAKE, A/O X4. PATIENT IN BREATHING ON ROOM AIR; BREATHING IS EVEN AND UNLABORED; NO SOB NOTED DURING THE SHIFT. PATIENT STATES THAT SHE FEELS MUCH BETTER. NO COMPLAINS OF PAIN. CURRENT MONITOR READING OF SINUS DAVION 55 BPM. RAC IV ACCESS G # 20 PRESENT AND INTACT. ALL NEEDS ATTENDED TO THROUGHOUT THE DAY. SAFETY PRECAUTIONS IN PLACE; BED IN LOW POSITION AND LOCKED, RAILS UP X2, CALL LIGHT WITHIN REACH. WILL ENDORSE TO SHREDDING SPECIALIST NURSE.
--- NOTE | 2020-05-15 19:27 | NUR ---
TELE/RN OPENING NOTES: RECEIVED PATIENT RESTING IN BED COMFORTABLY. A/OX4. VERBALLY RESPONSIVE AND ABLE TO MAKE NEEDS KNOWN. PATIENT IN NO ACUTE DISTRESS. SOB NOTED. BREATHING IS EVEN AND UNLABORED. ON CARDIAC MONITORING WITH READING OF SINUS DAVION HR 59. PATIENT HOB IS ELEVATED. PATIENT SAFETY PRECAUTIONS IN PLACE. ISOLATION PRECAUTIONS MAINTAINED. PATIENT BED IS LOCKED AND IN LOWEST POSITION. CALL LIGHT WITHIN REACH. WILL CONTINUE TO MONITOR ACCORDINGLY.
[2020-05-15] MEDS: ENOXAPARIN SODIUM 40 MG/0.4 ML DISP.SYRIN SQ SCH (21:38)
[2020-05-15] MEDS: QUETIAPINE FUMARATE 25 MG TABLET PO SCH (21:38)
[2020-05-15] MEDS: TEMAZEPAM 15 MG CAPSULE PO PRN (23:37)
[2020-05-16] VITALS: BP 133/76
[2020-05-16 04:00] VITALS: BP 152/79
--- NOTE | 2020-05-16 06:40 | NUR ---
TELE/RN CLOSING NOTES: PATIENT REMAINS IN BED SLEEPING COMFORTABLY. A/OX4. REMAINS STABLE. NO ACUTE DISTRESS. SOB NOTED. BREATHING IS EVEN AND UNLABORED. ON CARDIAC MONITORING READING SINUS DAVION HR 48. PATIENT HOB IS ELEVATED. PATIENT SAFETY PRECAUTIONS IN PLACE. ISOLATION PRECAUTIONS MAINTAINED. PATIENT BED IS LOCKED AND IN LOWEST POSITION. CALL LIGHT WITHIN REACH. ALL DUE MEDS GIVEN ORDERED. ALL NURSING NEEDS MET AND RENDERED. WILL ENDORSE TO DAY SHIFT FOR MAUDE.
--- NOTE | 2020-05-16 07:51 | NUR ---
RN Opening note Received patient in bed, AO x 3-4, able to responds all stimuli, does no appears pain or discomfort. Respiratory even and unlabored in room air, no SOB or respiratory distress. Skin is warm to touch, keep clean/dry. Keep bed locked with lowest position and elevated HOB for ensure airway and aspiration precaution. Call light within reach, will continue to monitor.
[2020-05-16 08:00] VITALS: BP 128/64
[2020-05-16] MEDS: DEXAMETHASONE SOD PHOSPHATE 10 MG/ML VIAL IV SCH (08:21)
[2020-05-16] MEDS: GABAPENTIN 100 MG CAPSULE PO SCH ×2 (08:21→12:15)
[2020-05-16] MEDS: METOPROLOL TARTRATE 50 MG TABLET PO SCH (08:21)
[2020-05-16] MEDS ORDERED: DEXA6TAB6 PO (12:19)
[2020-05-16] MEDS ORDERED: POTASSIUM CHLORIDE 20 MEQ TAB.PRT.SR PO ONE ×2 (13:30→15:20)
--- NOTE | 2020-05-16 13:41 | NUR ---
Patient discharge to [facility], Job/RN given report included continue to medication:Dexamethasone 6mg x 6tabs.
--- NOTE | 2020-05-16 15:30 | NUR ---
Received d/c kdur 40 mEq and held kdur 40 mEq.
--- NOTE | 2020-05-16 15:46 | NUR ---
3EMTs picked up patient to the [facility], and given report. Patient in stable condition, no sob observed, O2sat 98% on room air.
[2020-05-16 16:00] VITALS: BP_SYST 128; BP_SYST 137; BP_DIAS 64; BP_DIAS 77
== END 2020-05-16 17:36 | DRG 177 ==
LOC: ER 11:40 → TELE2 15:30
PROVIDERS: ADMIT Nurse Practitioner Acute Care; ATTEND Nurse Practitioner Acute Care
DX: U07.1 COVID-19 (principal); J12.89 Other viral pneumonia; J96.01 Acute respiratory failure with hypoxia; E87.1 Hypo-osmolality and hyponatremia; F31.5 Bipolar disorder, current episode depressed, severe, with psychotic features; I10 Essential (primary) hypertension; F41.9 Anxiety disorder, unspecified; Z96.651 Presence of right artificial knee joint; Z88.1 Allergy status to other antibiotic agents; Z91.018 Allergy to other foods; Z88.2 Allergy status to sulfonamides; Z88.8 Allergy status to other drugs, medicaments and biological substances; Z91.048 Other nonmedicinal substance allergy status; Z79.899 Other long term (current) drug therapy; I25.10 Atherosclerotic heart disease of native coronary artery without angina pectoris; F10.10 Alcohol abuse, uncomplicated; Y90.9 Presence of alcohol in blood, level not specified
CPT/HCPCS: 36415; 71045-TC; 80048-TC; 80053-TC; 80061-TC; 81000-TC; 82550-TC; 82728-TC; 83605-TC; 83615-TC; 83735-TC; 83880; 84100-TC; 84484-TC; 85025-TC; 85378-TC; 86140-TC; 87040-TC; 87081-TC; 93307-TC; G0378; J0696; J1100; J1650; J1956; J7050; J7060; U0003-CS

== ENCOUNTER 2020-09-22 00:56 | Emergency (ER) | payer MEDICARE, OTHER ==
[~2020-09-22] VITALS: Ht 152.4 cm; Wt 59.0 kg
[~2020-09-22 00:56] MED LIST changes: -ACET-868 PO; -BISA10SU11 RC; +DEXA6TAB6 PO; -FLUO20CA42 PO; -MAGN400O6 PO; -NA P133E RC; -NITR0.4T48 PO; +TEMA15CA5 PO; -TRAM50TA2 PO
--- NOTE | 2020-09-22 01:02 | NUR ---
PT AAOX4. BIBRA 88 FROM A [facility] FOR [facility]. PT ADMITTED ON DRINKING 2 WINE GLASSES. PT PLACED IN BED 11 ON MONITOR AND PULSE OX. NO ACUTE DISTRESS NOTED. -N/V. WILL CONTINUE TO MONITOR.
--- NOTE | 2020-09-22 04:07 | NUR ---
PT IN BED RESTING. ABLE TO SWALLOW WATER. NO ACUTE DISTRESS NOTED. AAOX4. AWAKE IN BED.
[2020-09-22 07:43] VITALS: BP 146/72
--- NOTE | 2020-09-22 07:43 | NUR ---
CHERRI OLGUIN, CALLED FAMILY/FRIEND ON THE PHONE, WILL PICK HER UP. PATIENT AMBULATES WITH STEADY GAIT. SOBERED UP. Patient discharged to home in stable condition. Written and verbal after care instructions given. Patient verbalizes understanding of instruction.
== END 2020-09-22 07:44 | disposition home or self-care (01) ==
LOC: ER 00:58
DX: F10.129 Alcohol abuse with intoxication, unspecified (principal); I10 Essential (primary) hypertension; F32.9 Major depressive disorder, single episode, unspecified; F41.9 Anxiety disorder, unspecified; Z96.651 Presence of right artificial knee joint; Z88.2 Allergy status to sulfonamides; Z91.010 Allergy to peanuts; Z88.8 Allergy status to other drugs, medicaments and biological substances; Z79.899 Other long term (current) drug therapy; Y90.9 Presence of alcohol in blood, level not specified

== ENCOUNTER 2021-03-29 12:08 | Emergency (ER) | payer MEDICARE, OTHER ==
[~2021-03-29] VITALS: Ht 152.4 cm; Wt 56.7 kg
[2021-03-29 12:15] VITALS: BP 118/67
--- NOTE | 2021-03-29 12:16 | NUR ---
AT BEDSIDE FOR EVAL.
[2021-03-29] MEDS ORDERED: CLOT12CR TP (12:23)
[2021-03-29] MEDS ORDERED: CEPH500T PO (12:23)
--- NOTE | 2021-03-29 12:28 | NUR ---
Patient discharged to home in stable condition. Written and verbal after care instructions given. Patient verbalizes understanding of instruction.
== END 2021-03-29 12:29 | disposition home or self-care (01) ==
LOC: ER 12:08
DX: B35.0 Tinea barbae and tinea capitis (principal); I10 Essential (primary) hypertension; F32.9 Major depressive disorder, single episode, unspecified; F41.9 Anxiety disorder, unspecified; Z96.651 Presence of right artificial knee joint; Z88.2 Allergy status to sulfonamides; Z88.1 Allergy status to other antibiotic agents; Z91.010 Allergy to peanuts; Z91.048 Other nonmedicinal substance allergy status; Z88.8 Allergy status to other drugs, medicaments and biological substances; Z60.2 Problems related to living alone; Z79.899 Other long term (current) drug therapy

== ENCOUNTER 2022-05-18 12:26 | Inpatient (IN) | payer MEDICARE, OTHER ==
[~2022-05-18] VITALS: Ht 152.4 cm; Wt 65.3 kg
[~2022-05-18 12:26] MED LIST changes: +CEPH500T PO; +CLOT12CR TP
--- NOTE | 2022-05-18 12:31 | NUR ---
BIBRA 60 FROM [facility], BP LOW AND DIZZINESS, BLOOD PRESSURE WAS 72/39 UPON ARRIVAL. EMS INITIATED IV 16G L AC AND 500ML OF NS WAS GIVEN. PT ATTACHED TO MONITOR. A&OX4. DR. ALVA AT BEDSIDE. AWAITING ORDERS.
[2022-05-18] MEDS ORDERED: ONDANSETRON HCL/PF 4 MG/2 ML VIAL ONE (12:53)
[2022-05-18] MEDS ORDERED: IV NS 0.9% 1,000 ML BAG IV ONE (13:00)
[2022-05-18] MEDS ORDERED: ONDANSETRON HCL/PF 4 MG/2 ML VIAL IVP ONE (13:00)
--- NOTE | 2022-05-18 13:00 | NUR ---
PT ABLE TO PROVIDE URINE AT THIS TIME, HAS 1L NS ATTACHED, STATED SHE WILL TRY AFTER COMPLETING FLUID
--- NOTE | 2022-05-18 13:12 | NUR ---
X RAY AT BEDSIDE
[2022-05-18 13:18] LABS: BASOPHILS % (AUTO) 0.3 % (0.0-2.0); EOSINOPHILS % (AUTO) 1.4 % (0.0-6.0); HEMATOCRIT 33 % (33-45); HEMOGLOBIN 10.5 g/dL (11.5-14.8); LYMPHOCYTES % (AUTO) 31.4 % (20.0-44.0); MEAN CORPUSCULAR HGB CONC 32 g/dl (31.0-36.0); MEAN CORPUSCULAR VOLUME 95 fL (82-100); MONOCYTES # (AUTO) 0.7 K/uL (0.1-1.30); MONOCYTES % (AUTO) 11.1 % (2.0-12.0); NEUTROPHILS # (AUTO) 3.6 K/uL (1.8-8.9); NEUTROPHILS % (AUTO) 55.8 % (43.0-81.0); PLATELET COUNT (AUTO) 79 K/uL (150-450); RED BLOOD CELL COUNT(AUTO) 3.44 MIL/uL (4.0-5.2); WHITE BLOOD COUNT (AUTO) 6.4 K/uL (4.3-11.0)
[2022-05-18 13:34] LABS: ALANINE AMINOTRANSFERASE 92 U/L (12-78); ALBUMIN 2.1 g/dL (3.4-5.0); ALKALINE PHOSPHATASE 87 U/L (46-116); ASPARTATE AMINOTRANSFERASE 74 U/L (15-37); BILIRUBIN,DIRECT 0.3 mg/dL (0.0-0.2); BILIRUBIN,TOTAL 0.5 mg/dL (0.2-1.0); CALCIUM, SERUM 7.8 mg/dL (8.5-10.1); CARBON DIOXIDE 18 mmol/L (21-32); CHLORIDE 109 mmol/L (98-107); CREATININE 1.9 mg/dL (0.6-1.3); GLUCOSE 100 mg/dL (74-106); LIPASE 128 U/L (73-393); SODIUM SERUM 133 mmol/L (136-145); TOTAL PROTEIN, SERUM 5.3 g/dL (6.4-8.2); UREA NITROGEN, BLOOD 47 mg/dL (7-18)
[2022-05-18 13:35] LABS: POTASSIUM 6.3 mmol/L (3.5-5.1)
--- NOTE | 2022-05-18 13:46 | NUR ---
URINE COLLECTED AND SENT
[2022-05-18 13:47] LABS: EOSINOPHILS % (MANUAL) 1 % (0-4); LYMPHOCYTES % (MANUAL) 20 % (16-48); METAMYELOCYTES % 1 % (0-0); MONOCYTES % (MANUAL) 7 % (0-11.0); MYELOCYTES % 2 % (0-0); NEUTROPHILS % (MANUAL) 69 (42-76)
[2022-05-18] MEDS ORDERED: ESCI10TA PO (13:54)
[2022-05-18] MEDS ORDERED: LORA-259 PO (13:54)
[2022-05-18] MEDS ORDERED: QUET100T PO (13:54)
[2022-05-18] MEDS ORDERED: BENA40TA8 PO (13:54)
--- NOTE | 2022-05-18 13:55 | NUR ---
MOVE SHEET SUBMITTED.
[2022-05-18] MEDS ORDERED: SODIUM POLYSTYRENE SULFONATE 15 G/60 ML BOTTLE PO ONE (14:00)
[2022-05-18] MEDS ORDERED: SODIUM POLYSTYRENE SULFONATE 15 G/60 ML BOTTLE ONE (14:05)
--- NOTE | 2022-05-18 14:12 | NUR ---
[facility] CALLED OUTPATIENT DIETITIAN PAGED.
[2022-05-18 14:38] LABS: ALCOHOL, BLOOD < 3 mg/dL (0-0); CALCIUM, SERUM 7.7 mg/dL (8.5-10.1); CARBON DIOXIDE 24 mmol/L (21-32); CHLORIDE 110 mmol/L (98-107); CREATININE 1.7 mg/dL (0.6-1.3); GLUCOSE 106 mg/dL (74-106); POTASSIUM 5.9 mmol/L (3.5-5.1); SODIUM SERUM 139 mmol/L (136-145); UREA NITROGEN, BLOOD 44 mg/dL (7-18)
[2022-05-18 15:01] LABS: BILIRUBIN,URINE NEGATIVE (NEGATIVE); COLOR,URINE YELLOW (YELLOW); LEUKOCYTE ESTERASE ,URINE TRACE (NEGATIVE); NITRITE, URINE NEGATIVE (NEGATIVE); PH,URINE 6.5 (5.0-8.0); PROTEIN,URINE NEGATIVE (NEGATIVE); UGLUCOSE NEGATIVE (NEGATIVE); UROBILINOGEN,URINE 0.2 EU/dL (0.2)
[2022-05-18 15:20] LABS: BACTERIA,URINE 1+ /HPF (None Seen); FINE GRANULAR CASTS,URINE Few /LPF (None Seen); RBC,URINE 0-2 /HPF (0-2); SQUAMOUS EPITHELIAL CELL,UR Few /HPF (None Seen)
--- NOTE | 2022-05-18 16:10 | NUR ---
GOT BED 314-2
--- NOTE | 2022-05-18 16:48 | NUR ---
REPORT GIVEN TO MK FOR MAUDE
--- NOTE | 2022-05-18 17:01 | NUR ---
PT TRANSFERRED TO [address] [place] [address] AND RECIEVED BY IVAN TERRAZAS FOR MAUDE
[2022-05-18] MEDS ORDERED: LORAZEPAM 1 MG TABLET PO PRN (18:00)
[2022-05-18] MEDS ORDERED: ONDANSETRON HCL/PF 4 MG/2 ML VIAL IVP PRN (18:00)
[2022-05-18] MEDS: SODIUM POLYSTYRENE SULFONATE 15 G/60 ML BOTTLE PO ONE ×2 (18:00→18:57)
[2022-05-18] MEDS ORDERED: HYDROCODONE/APAP 5/325MG TABLET PO PRN (18:00)
[2022-05-18] MEDS ORDERED: IV NS 0.9% 1,000 ML IV PRN (18:00)
[2022-05-18] MEDS ORDERED: ACETAMINOPHEN 325 MG TABLET PO PRN (18:00)
--- NOTE | 2022-05-18 18:30 | NUR ---
DATABASE TECHNICIAN NOTE ADMITTED THIS 76 Y/O FEMALE PATIENT FROM ER @1700. TRANSPORTED VIA GURNEY, ACCOMPANIED BY 2 ER STAFF. WITH ADMITTING DIAGNOSIS OF HYPOTENSION/BRYON. PATIENT IS ALERT AND ORIENTED X4, VERBALLY RESPONSIVE. NON SIGNS OF ACUTE DISTRESS NOTED. DENIES ANY PAIN AT THIS TIME. STABLE ON ROOM AIR. NO SOB NOTED, BREATHING EVEN AND UNLABORED. NOTED WITH IV ACCESS ON LEFT AC #16G, INTACT AND PATENT, FLUSHES WELL. BODY ASSESSMENT DONE, NOTED WITH MULTIPLE BRUISES ON BOTH ARMS AND BOTH LEGS. PLACED PATIENT ON UNDERGROUND REPAIRER, SHOWING SINUS RHYTHM HR, @65. PATIENT AMBULATORY ABLE TO GO THE BATHROOM INDEPENDENTLY, BUT ENCOURAGED PATIENT TO ASK FOR ASSISTANCE SECONDARY TO EPISODES OF HYPOTENSION. ORIENT ED PATIENT TO ROOM AND ROOM MATE AND STAFF. ROUTINE ADMISSION CARE PROVIDED. SAFETY MEASURE IN PLACE. BED IN LOWEST AND LOCKED POSITION, SIDE RAILS UP X2, CALL LIGHT PLACED WITHIN EASY REACH. WILL CONTINUE TO MONITOR PATIENT.
--- NOTE | 2022-05-18 19:00 | NUR ---
ENGINEERING AID CLOSING NOTES PATIENT IN BED, AWAKE. PATIENT REFUSE TO TAKE KAYEXALATE IN SPITE EXPLANATION OF IMPORTANCE. PER PATIENT IT MAKES HER STOMACH HURTS. EXPLAINED THAT MEDICATION WILL MAKE HER GO TO THE BATHROOM BUT PATIENT STRONGLY REFUSED. SAFETY MEASURE MAINTAINED. BED IN LOWEST AND LOCKED POSITION, SIDE RAILS UP X2, CALL LIGHT PLACED WITHIN EASY REACH. WILL ENDORSE TO NEXT SHIFT.
--- NOTE | 2022-05-18 19:23 | NUR ---
RN OPENING NOTE PATIENT IN BED, AWAKE. PATIENT IS A/O X 3-4 ABLE TO MAKE NEEDS KNOWN. PATIENT IS ON RA, TOLERATING WELL, BREATHING EVEN AND UNLABORED. PATIENT'S TELE MONITOR READS SR 60 BPM. PATIENT DOES NOT REPORT ANY PAIN AT THIS TIME. PATIENT HAS A LAC 16 G, LEAKING WHEN FLUSHED, THERE IS ALSO RESISTANCE. WILL INSERT NEW IV ACCESS. PATIENT NOT IN ANY APPARENT DISTRESS. SAFETY MEASURES IN PLACE: BED LOCKED AND IN LOWEST POSITION, CALL LIGHT WITHIN REACH, SIDE RAILS UP. WILL MONITOR PATIENT CLOSELY.
[2022-05-18 20:00] VITALS: BP 144/65
--- NOTE | 2022-05-18 20:43 | NUR ---
LFA 22G IV ACCESS ESTABLISHED. PATENT AND INTACT, IVF ONGOING NOW.
--- NOTE | 2022-05-18 20:45 | NUR ---
PATIENT REQUESTING SLEEPING MEDICATION. INFORMED PATIENT THAT THE RESTORIL IS HELP BY DR. VAZQUEZ. PATIENT IS REQUESTING FOR A DIFFERENT SLEEPING MEDICATION. INFORMED BJ UGARTE PRINCIPAL AUTOMATION ENGINEER MD, AWAITING RESPONSE
--- NOTE | 2022-05-18 21:15 | NUR ---
MD ORDERED MELATONIN 10 MG, INFORMED MD THAT THE FACILITY DOES NOT CARRY MELATONIN AND ASKED FOR A DIFFERENT MEDICATION. MD ASKED FOR ORTHOSTATIC BP.
--- NOTE | 2022-05-18 21:30 | NUR ---
ORTHOSTATIC BP LYING 138/61 HR 73 SITTING 107/63 HR 75 STANDING 84/46 79 MD AWARE. Addendum: 05/18/22 at 2318 by SAQIB DOWELL RN PATIENT DOES NOT REPORT ANY DIZZINESS WHEN CHANGING INTO A DIFFERENT POSITION
[2022-05-18] MEDS ORDERED: QUETIAPINE FUMARATE 100 MG TABLET PO SCH (22:00)
--- NOTE | 2022-05-18 22:00 | NUR ---
MD ORDERED BENADRYL 25 MG PO X 1 TO HELP PATIENT SLEEP. ORDER READ BACK AND CARRIED OUT.
[2022-05-18] MEDS ORDERED: diphenhydrAMINE HCL 25 MG CAPSULE PO ONE (22:30)
[2022-05-19] VITALS: BP 125/57
--- NOTE | 2022-05-19 00:33 | NUR ---
RN NOTE PATIENT DOES NOT WANT TO BE CONNECTED TO THE IVF A THIS TIME STATES THAT SHE DOESN'T THINK SHE NEEDS IT ANYMORE. EDUCATED PATIENT REGARDING THE IMPORTANCE OF THE IVF. WILL TRY AGAIN AT A LATER TIME.
[2022-05-19 04:00] VITALS: BP 110/53
--- NOTE | 2022-05-19 06:32 | NUR ---
RN CLOSING NOTE PATIENT IN BED, EYES CLOSED, EASILY AWAKENED. PATIENT IS A/O X 3-4 ABLE TO MAKE NEEDS KNOWN. PATIENT IS ON RA, TOLERATING WELL, BREATHING EVEN AND UNLABORED. PATIENT'S TELE MONITOR READS SR 74 BPM. PATIENT DID NOT REPORT ANY PAIN DURING THE SHIFT. PATIENT HAS A LFA 22 G, PATENT AND INTACT, SALINE LOCKED ONLY, PATIENT STILL REFUSING IVF. PATIENT NOT IN ANY APPARENT DISTRESS. SAFETY MEASURES IN PLACE: BED LOCKED AND IN LOWEST POSITION, CALL LIGHT WITHIN REACH, SIDE RAILS UP. ALL NEEDS MET AND ATTENDED. ALL ORDERS CARRIED OUT. WILL ENDORSE TO DAY SHIFT NURSE FOR MAUDE.
[2022-05-19 06:38] LABS: BASOPHILS % (AUTO) 0.7 % (0.0-2.0); EOSINOPHILS % (AUTO) 2.5 % (0.0-6.0); HEMATOCRIT 32 % (33-45); HEMOGLOBIN 10.2 g/dL (11.5-14.8); LYMPHOCYTES # (AUTO) 1.5 K/uL (0.8-4.8); LYMPHOCYTES % (AUTO) 32.2 % (20.0-44.0); MEAN CORPUSCULAR HGB CONC 32 g/dl (31.0-36.0); MEAN CORPUSCULAR VOLUME 96 fL (82-100); MONOCYTES # (AUTO) 0.5 K/uL (0.1-1.30); MONOCYTES % (AUTO) 10.1 % (2.0-12.0); NEUTROPHILS # (AUTO) 2.5 K/uL (1.8-8.9); NEUTROPHILS % (AUTO) 54.5 % (43.0-81.0); PLATELET COUNT (AUTO) 69 K/uL (150-450); RED BLOOD CELL COUNT(AUTO) 3.33 MIL/uL (4.0-5.2); WHITE BLOOD COUNT (AUTO) 4.6 K/uL (4.3-11.0)
--- NOTE | 2022-05-19 07:08 | NUR ---
MEDICINE TEACHER OPENING NOTES RECEIVED PATIENT AWAKE IN BED, A/O x3 ABLE TO MAKE NEEDS KNOWN. ON ROOM AIR NO S/S OF RESPIRATORY DISTRESS. ON TELE MONITORING SHOWING SINUS RHYTHM HR 74. NO C/O OF CHEST PAIN OR CARDIAC DISTRESS. IV ACCESS L FA #[id number], PATIENT AT THIS TIME IS REFUSING IV FLUIDS. SKIN ISSUES: BRUISES ON BILATERAL UPPER AND LOWER EXTREMITIES. SAFETY MEASURES IN PLACE: BED LOCKED AND IN LOWEST POSITION, SIDE RAILS UP x2, CALL LIGHT WITHIN REACH, HOB ELEVATED. WILL CONTINUE TO MONITOR.
[2022-05-19 07:48] LABS: CALCIUM, SERUM 7.5 mg/dL (8.5-10.1); CREATININE 1.1 mg/dL (0.6-1.3); MAGNESIUM 1.8 mg/dL (1.8-2.4); PHOSPHORUS 4.3 mg/dL (2.5-4.9); POTASSIUM 4.9 mmol/L (3.5-5.1)
[2022-05-19 08:00] VITALS: BP 131/68
[2022-05-19] MEDS: GABAPENTIN 100 MG CAPSULE PO SCH ×2 (08:42→13:09)
[2022-05-19] MEDS ORDERED: ESCITALOPRAM OXALATE (10 MG) 10 MG TABLET PO SCH (09:00)
[2022-05-19] MEDS ORDERED: QUETIAPINE FUMARATE 100 MG TABLET PO SCH (09:00)
[2022-05-19 09:27] LABS: THYROID STIMULATING HORMONE 3.299 uIU/mL (0.358-3.74)
[2022-05-19 10:21] LABS: BASOPHILS % (MANUAL) 0 % (0.0-2.0); EOSINOPHILS % (MANUAL) 1 % (0-4); LYMPHOCYTES % (MANUAL) 35 % (16-48); MONOCYTES % (MANUAL) 10 % (0-11.0); NEUTROPHILS % (MANUAL) 54 (42-76)
[2022-05-19 12:00] VITALS: BP 99/61
[2022-05-19] MEDS ORDERED: INFLUENZA VACCINE 2022-23 0.5 ML DISP.SYRIN IM ONE (13:00)
[2022-05-19 16:00] VITALS: BP 133/54
--- NOTE | 2022-05-19 16:22 | NUR ---
TRUCK CAR AND BUS CLEANER NOTES PATIENT D/C BACK TO [facility], A/O x3 ABLE TO MAKE NEEDS KNOWN. PATIENT STABLE ON ROOM AIR, V/S STABLE. NO S/S OF PAIN OR DISCOMFORT NOTED. DISCHARGE INSTRUCTIONS AND HEALTH TEACHINGS EXPLAINED TO PATIENT, PATIENT VERBALIZED UNDERSTANDING. FORMS SIGNED, COPIED AND FILED INTO CHART. PATIENT REFUSED TO HAVE DISCHARGE PHOTOS TAKE OF BRUISED AREAS. IV ACCESS REMOVED AND PRESSURE DRESSING APPLIED. PATIENT PICKED UP BY [facility]SPORT OF [facility]. PATIENT LEFT UNIT @1435, ACCOMPANIED BY RNFATOU. CHARGE NURSE AND MD AWARE OF DISCHARGE.
== END 2022-05-19 15:35 | DRG 312 ==
LOC: ER 12:28 → TELE 16:09
DX: I95.2 Hypotension due to drugs (principal); E44.0 Moderate protein-calorie malnutrition; N17.9 Acute kidney failure, unspecified; Z20.822 Contact with and (suspected) exposure to COVID-19; E87.5 Hyperkalemia; I10 Essential (primary) hypertension; F41.9 Anxiety disorder, unspecified; G47.00 Insomnia, unspecified; D69.6 Thrombocytopenia, unspecified; Z86.16 Personal history of COVID-19; Z96.651 Presence of right artificial knee joint; Z88.3 Allergy status to other anti-infective agents; Z91.018 Allergy to other foods; Z91.010 Allergy to peanuts; Z88.2 Allergy status to sulfonamides; Z88.8 Allergy status to other drugs, medicaments and biological substances; Z91.048 Other nonmedicinal substance allergy status; Z79.899 Other long term (current) drug therapy; F32.A Depression, unspecified; Z87.891 Personal history of nicotine dependence; I25.10 Atherosclerotic heart disease of native coronary artery without angina pectoris; E88.09 Other disorders of plasma-protein metabolism, not elsewhere classified; D64.9 Anemia, unspecified; T46.4X5A Adverse effect of angiotensin-converting-enzyme inhibitors, initial encounter; Y92.099 Unspecified place in other non-institutional residence as the place of occurrence of the external cause
CPT/HCPCS: 36415; 71045-TC; 80048-TC; 80061-TC; 80076-TC; 81001; 83690-TC; 83735-TC; 84100-TC; 84443-TC; 84484-TC; 85025-TC; 87081-TC; 93307-TC; C9803; G0378; G0480; J2405; J7030; Q0163; Q2036

== ENCOUNTER 2022-06-03 10:05 | Emergency (ER) | payer MEDICARE, OTHER ==
[~2022-06-03] VITALS: Ht 152.4 cm; Wt 66.7 kg
[~2022-06-03 10:05] MED LIST changes: +BENA40TA8 PO; -CEPH500T PO; -CLOT12CR TP; -DEXA6TAB6 PO; +ESCI10TA PO; +LORA-259 PO; +QUET100T PO
[2022-06-03 10:16] VITALS: BP 121/60
--- NOTE | 2022-06-03 10:17 | NUR ---
To ER bed 1, from [facility] c/o R ankle pain since falling down 05/18/22. sent for further eval, aaox3, breathing even and non labored, connected to monitor, awaiting md werner
--- NOTE | 2022-06-03 13:18 | NUR ---
CALLED DR. BENTLEY ASKED TO CALL ER
--- NOTE | 2022-06-03 13:53 | NUR ---
CALLED DR. CONWAY [phone]
[2022-06-03 14:17] LABS: EOSINOPHILS % (AUTO) 3.3 % (0.0-6.0); HEMATOCRIT 30 % (33-45); HEMOGLOBIN 9.9 g/dL (11.5-14.8); LYMPHOCYTES # (AUTO) 1.9 K/uL (0.8-4.8); LYMPHOCYTES % (AUTO) 38.8 % (20.0-44.0); MEAN CORPUSCULAR HGB CONC 33 g/dl (31.0-36.0); MEAN CORPUSCULAR VOLUME 93 fL (82-100); MONOCYTES # (AUTO) 0.5 K/uL (0.1-1.30); NEUTROPHILS # (AUTO) 2.2 K/uL (1.8-8.9); NEUTROPHILS % (AUTO) 45.9 % (43.0-81.0); PLATELET COUNT (AUTO) 116 K/uL (150-450); RED BLOOD CELL COUNT(AUTO) 3.27 MIL/uL (4.0-5.2); WHITE BLOOD COUNT (AUTO) 4.8 K/uL (4.3-11.0)
[2022-06-03 15:07] LABS: CALCIUM, SERUM 8.1 mg/dL (8.5-10.1); POTASSIUM 4.4 mmol/L (3.5-5.1)
--- NOTE | 2022-06-03 15:40 | NUR ---
[facility] ETA 1700 TO [facility]
[2022-06-03] MEDS ORDERED: APIXABAN 5 MG TABLET ONE (15:41)
[2022-06-03] MEDS: APIXABAN 5 MG TABLET PO SCH (15:44)
--- NOTE | 2022-06-03 17:38 | NUR ---
Patient discharged to home via [facility] to [facility] in stable condition. Written and verbal after care instructions given. Patient verbalizes understanding of instruction.
== END 2022-06-03 17:39 | disposition home or self-care (01) ==
LOC: ER 10:08
DX: I82.401 Acute embolism and thrombosis of unspecified deep veins of right lower extremity (principal); I10 Essential (primary) hypertension; F32.A Depression, unspecified; F41.9 Anxiety disorder, unspecified; Z96.651 Presence of right artificial knee joint; Z86.16 Personal history of COVID-19; Z91.010 Allergy to peanuts; Z88.8 Allergy status to other drugs, medicaments and biological substances; Z60.2 Problems related to living alone; Z79.899 Other long term (current) drug therapy
CPT/HCPCS: 36415; 73590-TC; 73610-TC; 80048-TC; 85025-TC; 85730-TC; 93971-TC

== ENCOUNTER 2023-08-24 19:02 | Inpatient (IN) | payer MEDICARE, OTHER ==
[~2023-08-24] VITALS: Ht 152.4 cm; Wt 73.5 kg
[~2023-08-24 19:02] MED LIST changes: +AMOX1TAB16 PO; +GABA300C PO
[2023-08-24 21:05] LABS: BASOPHILS % (AUTO) 0.6 % (0.0-2.0); EOSINOPHILS # (AUTO) 0.1 K/uL (0.0-0.7); HEMATOCRIT 39 % (33-45); LYMPHOCYTES # (AUTO) 2.5 K/uL (0.8-4.8); LYMPHOCYTES % (AUTO) 36.6 % (20.0-44.0); MEAN CORPUSCULAR HEMOGLOBIN 30 PG (26.0-33.0); MEAN CORPUSCULAR HGB CONC 33 g/dl (31.0-36.0); MEAN CORPUSCULAR VOLUME 90 fL (82-100); MONOCYTES # (AUTO) 0.6 K/uL (0.1-1.30); NEUTROPHILS # (AUTO) 3.7 K/uL (1.8-8.9); NEUTROPHILS % (AUTO) 52.8 % (43.0-81.0); PLATELET COUNT (AUTO) 230 K/uL (150-450); RED BLOOD CELL COUNT(AUTO) 4.35 MIL/uL (4.0-5.2); RED CELL DISTRIBUTION WIDTH 14.2 % (11.5-15.0); WHITE BLOOD COUNT (AUTO) 6.9 K/uL (4.3-11.0)
[2023-08-24 21:16] LABS: APPEARANCE,URINE CLEAR (CLEAR); BILIRUBIN,URINE NEGATIVE (NEGATIVE); BLOOD, URINE NEGATIVE Ery/uL (NEGATIVE); COLOR,URINE YELLOW (YELLOW); KETONES,URINE NEGATIVE (NEGATIVE); LEUKOCYTE ESTERASE ,URINE TRACE (NEGATIVE); NITRITE, URINE NEGATIVE (NEGATIVE); PH,URINE 5.5 (5.0-8.0); PROTEIN,URINE NEGATIVE (NEGATIVE); UGLUCOSE NEGATIVE (NEGATIVE); UROBILINOGEN,URINE 0.2 EU/dL (0.2)
[2023-08-24 21:19] LABS: CALCIUM, SERUM 9.1 mg/dL (8.5-10.1); CARBON DIOXIDE 25 mmol/L (21-32); CHLORIDE 102 mmol/L (98-107); CREATININE 1.1 mg/dL (0.6-1.3); GLUCOSE 89 mg/dL (74-106); POTASSIUM 3.8 mmol/L (3.5-5.1); SODIUM SERUM 138 mmol/L (136-145); UREA NITROGEN, BLOOD 23 mg/dL (7-18)
[2023-08-24 21:26] LABS: ALANINE AMINOTRANSFERASE 80 U/L (12-78); ALBUMIN 3.7 g/dL (3.4-5.0); ALCOHOL, BLOOD < 3 mg/dL (0-10); ALKALINE PHOSPHATASE 88 U/L (46-116); ASPARTATE AMINOTRANSFERASE 51 U/L (15-37); BILIRUBIN,DIRECT 0.3 mg/dL (0.0-0.2); BILIRUBIN,TOTAL 0.6 mg/dL (0.2-1.0)
[2023-08-24 21:27] LABS: ACETAMINOPHEN <10 ug/ml (10-30); SALICYLATE < 0.2 mg/dL (2.8-20.0)
[2023-08-24 21:28] LABS: ADD URINE CULTURE YES; AMPHETAMINE, URINE NEGATIVE (NEGATIVE); BACTERIA,URINE Few /HPF (None Seen); BARBITURATE, URINE NEGATIVE (NEGATIVE); BENZODIAZEPINE, URINE NEGATIVE (NEGATIVE); CANNABINOID, URINE NEGATIVE (NEGATIVE); COCCAINE, URINE NEGATIVE (NEGATIVE); OPIATE, URINE NEGATIVE (NEGATIVE); PHENCYCLIDINE SCREEN,URINE NEGATIVE (NEGATIVE); RBC,URINE 0-2 /HPF (0-2); SQUAMOUS EPITHELIAL CELL,UR Few /HPF (None Seen)
[2023-08-24 22:00] VITALS: O2SAT 98
[2023-08-25] MEDS ORDERED: OFLO5DRO6 EACHEYE (00:11)
[2023-08-25] MEDS ORDERED: BLOOD SUGAR DIAGNOSTIC 1 EACH STRIP IN ONE (00:30)
[2023-08-25] MEDS ORDERED: MAGNESIUM HYDROXIDE 30 ML UDC PO PRN (00:30)
[2023-08-25] MEDS ORDERED: ACETAMINOPHEN 325 MG TABLET PO PRN (00:30)
[2023-08-25] MEDS ORDERED: MAG HYDROX/AL HYDROX/SIMETH 30 ML UDC PO PRN (00:30)
[2023-08-25] MEDS ORDERED: ZOLPIDEM TARTRATE 5 MG TABLET PO PRN (00:30)
[2023-08-25] MEDS ORDERED: LORAZEPAM 1 MG TABLET PO PRN (00:30)
[2023-08-25 06:49] VITALS: BP 152/72; TEMP 97.8; O2SAT 99
[2023-08-25 08:00] VITALS: BP 145/74; TEMP 97.9; O2SAT 96
[2023-08-25] MEDS: CEPHALEXIN MONOHYDRATE 500 MG CAPSULE PO SCH ×2 (08:17→16:13)
[2023-08-25] MEDS ORDERED: SENN-261 PO (08:17)
[2023-08-25] MEDS ORDERED: hydrOXYzine PAMOATE 25 MG CAPSULE PO PRN (10:00)
[2023-08-25] MEDS: GABAPENTIN 100 MG CAPSULE PO SCH ×2 (12:20→16:13)
[2023-08-25] MEDS ORDERED: GABAPENTIN 300 MG CAPSULE PO SCH (13:00)
[2023-08-25 16:00] VITALS: BP 151/72; TEMP 98.8; O2SAT 99
[2023-08-25] MEDS: QUETIAPINE FUMARATE 100 MG TABLET PO SCH ×2 (16:13→21:39)
[2023-08-25] MEDS: METOPROLOL TARTRATE 50 MG TABLET PO SCH (16:14)
[2023-08-25 20:49] VITALS: BP 125/69; TEMP 98.6; O2SAT 100
[2023-08-26 07:59] LABS: BASOPHILS % (AUTO) 0.8 % (0.0-2.0); EOSINOPHILS # (AUTO) 0.1 K/uL (0.0-0.7); EOSINOPHILS % (AUTO) 2.6 % (0.0-6.0); HEMATOCRIT 39 % (33-45); LYMPHOCYTES # (AUTO) 2.2 K/uL (0.8-4.8); MEAN CORPUSCULAR HEMOGLOBIN 30 PG (26.0-33.0); MEAN CORPUSCULAR HGB CONC 34 g/dl (31.0-36.0); MEAN CORPUSCULAR VOLUME 90 fL (82-100); MONOCYTES # (AUTO) 0.6 K/uL (0.1-1.30); MONOCYTES % (AUTO) 10.2 % (2.0-12.0); NEUTROPHILS # (AUTO) 2.6 K/uL (1.8-8.9); NEUTROPHILS % (AUTO) 47.4 % (43.0-81.0); PLATELET COUNT (AUTO) 223 K/uL (150-450); RED CELL DISTRIBUTION WIDTH 14.4 % (11.5-15.0); WHITE BLOOD COUNT (AUTO) 5.5 K/uL (4.3-11.0)
[2023-08-26 08:00] VITALS: BP 100/69; TEMP 97.8; O2SAT 100
[2023-08-26] MEDS: SENNOSIDES 8.6 MG TABLET PO SCH (08:39)
[2023-08-26] MEDS: QUETIAPINE FUMARATE 100 MG TABLET PO SCH ×3 (08:39→21:56)
[2023-08-26] MEDS: GABAPENTIN 100 MG CAPSULE PO SCH ×2 (08:39→12:23)
[2023-08-26] MEDS: CEPHALEXIN MONOHYDRATE 500 MG CAPSULE PO SCH ×2 (08:39→16:48)
[2023-08-26] MEDS: ESCITALOPRAM OXALATE (10 MG) 10 MG TABLET PO SCH (08:39)
[2023-08-26] MEDS: METOPROLOL TARTRATE 50 MG TABLET PO SCH ×2 (08:40→16:47)
[2023-08-26 08:49] LABS: CALCIUM, SERUM 8.8 mg/dL (8.5-10.1); POTASSIUM 4.4 mmol/L (3.5-5.1)
[2023-08-26 16:00] VITALS: BP 130/65; TEMP 97.9; O2SAT 97
[2023-08-26] MEDS: GABAPENTIN 300 MG CAPSULE PO SCH (16:47)
[2023-08-26 20:00] VITALS: BP 116/67; TEMP 97.5; O2SAT 97
[2023-08-27 08:00] VITALS: BP 100/73; TEMP 97.8; O2SAT 100
[2023-08-27] MEDS: SENNOSIDES 8.6 MG TABLET PO SCH (08:46)
[2023-08-27] MEDS: CEPHALEXIN MONOHYDRATE 500 MG CAPSULE PO SCH ×2 (09:06→17:27)
[2023-08-27] MEDS: GABAPENTIN 300 MG CAPSULE PO SCH ×3 (09:07→17:27)
[2023-08-27] MEDS: QUETIAPINE FUMARATE 100 MG TABLET PO SCH ×3 (09:07→21:38)
[2023-08-27] MEDS: METOPROLOL TARTRATE 50 MG TABLET PO SCH ×2 (09:07→17:27)
[2023-08-27] MEDS: ESCITALOPRAM OXALATE (10 MG) 10 MG TABLET PO SCH (09:07)
[2023-08-27] MEDS: OFLOXACIN 0.3% OPHTH 5 ML BOTTLE EACHEYE SCH ×4 (09:08→21:27)
[2023-08-27 16:00] VITALS: BP 118/62; TEMP 98; O2SAT 95
[2023-08-27 21:42] VITALS: BP 110/51; TEMP 98.4; O2SAT 96
[2023-08-27] MEDS: TEMAZEPAM 15 MG CAPSULE PO PRN (23:37)
[2023-08-28 08:00] VITALS: BP 110/61; TEMP 98; O2SAT 97
[2023-08-28] MEDS: SENNOSIDES 8.6 MG TABLET PO SCH (08:33)
[2023-08-28] MEDS: CEPHALEXIN MONOHYDRATE 500 MG CAPSULE PO SCH ×2 (08:33→17:29)
[2023-08-28] MEDS: METOPROLOL TARTRATE 50 MG TABLET PO SCH ×2 (08:34→17:00)
[2023-08-28] MEDS: GABAPENTIN 300 MG CAPSULE PO SCH ×3 (08:35→17:29)
[2023-08-28] MEDS: QUETIAPINE FUMARATE 100 MG TABLET PO SCH ×3 (08:35→21:05)
[2023-08-28] MEDS: ESCITALOPRAM OXALATE (10 MG) 10 MG TABLET PO SCH (09:03)
[2023-08-28] MEDS: OFLOXACIN 0.3% OPHTH 5 ML BOTTLE EACHEYE SCH ×4 (09:03→20:45)
[2023-08-28 16:00] VITALS: BP 107/52; TEMP 97.9; O2SAT 95
[2023-08-28 20:33] VITALS: BP 108/51; TEMP 98.8; O2SAT 100
[2023-08-29 08:00] VITALS: BP 115/58; TEMP 97.8; O2SAT 94
[2023-08-29] MEDS: GABAPENTIN 300 MG CAPSULE PO SCH ×3 (09:11→17:01)
[2023-08-29] MEDS: METOPROLOL TARTRATE 50 MG TABLET PO SCH ×2 (09:11→17:02)
[2023-08-29] MEDS: CEPHALEXIN MONOHYDRATE 500 MG CAPSULE PO SCH ×2 (09:11→17:02)
[2023-08-29] MEDS: QUETIAPINE FUMARATE 100 MG TABLET PO SCH ×3 (09:12→21:27)
[2023-08-29] MEDS: ESCITALOPRAM OXALATE (10 MG) 10 MG TABLET PO SCH (09:12)
[2023-08-29] MEDS: SENNOSIDES 8.6 MG TABLET PO SCH (09:12)
[2023-08-29] MEDS: OFLOXACIN 0.3% OPHTH 5 ML BOTTLE EACHEYE SCH ×4 (09:16→21:27)
[2023-08-29] MEDS: Fluoxetine 10 mg capsule PO SCH (11:29)
[2023-08-29 16:00] VITALS: BP 131/71; TEMP 98; O2SAT 100
[2023-08-29 21:30] VITALS: BP 128/65; TEMP 98.2; O2SAT 97
[2023-08-30] MEDS: TEMAZEPAM 15 MG CAPSULE PO PRN ×2 (01:33→23:49)
[2023-08-30 08:00] VITALS: BP 120/72; TEMP 98.7; O2SAT 98
[2023-08-30] MEDS: QUETIAPINE FUMARATE 100 MG TABLET PO SCH ×3 (08:24→21:13)
[2023-08-30] MEDS: SENNOSIDES 8.6 MG TABLET PO SCH (08:25)
[2023-08-30] MEDS: GABAPENTIN 300 MG CAPSULE PO SCH ×3 (08:25→16:16)
[2023-08-30] MEDS: Fluoxetine 10 mg capsule PO SCH (08:25)
[2023-08-30] MEDS: METOPROLOL TARTRATE 50 MG TABLET PO SCH ×2 (08:26→16:15)
[2023-08-30] MEDS: CEPHALEXIN MONOHYDRATE 500 MG CAPSULE PO SCH ×2 (08:27→16:15)
[2023-08-30] MEDS: OFLOXACIN 0.3% OPHTH 5 ML BOTTLE EACHEYE SCH ×4 (08:28→21:13)
[2023-08-30 15:10] VITALS: BP 140/73; TEMP 98.7; O2SAT 98
[2023-08-30 20:00] VITALS: BP 118/55; TEMP 98.5; O2SAT 95
[2023-08-31 08:00] VITALS: BP 132/72; TEMP 98.1; O2SAT 95
[2023-08-31] MEDS: QUETIAPINE FUMARATE 100 MG TABLET PO SCH ×3 (08:54→21:25)
[2023-08-31] MEDS: GABAPENTIN 300 MG CAPSULE PO SCH ×3 (08:54→16:24)
[2023-08-31] MEDS: METOPROLOL TARTRATE 50 MG TABLET PO SCH ×2 (08:55→16:25)
[2023-08-31] MEDS: Fluoxetine 10 mg capsule PO SCH (08:55)
[2023-08-31] MEDS: CEPHALEXIN MONOHYDRATE 500 MG CAPSULE PO SCH ×2 (08:56→16:26)
[2023-08-31] MEDS: SENNOSIDES 8.6 MG TABLET PO SCH (08:57)
[2023-08-31] MEDS: OFLOXACIN 0.3% OPHTH 5 ML BOTTLE EACHEYE SCH ×4 (08:59→21:25)
[2023-08-31 16:00] VITALS: BP 136/63; TEMP 97.9; O2SAT 96
[2023-08-31 20:00] VITALS: BP 106/49; TEMP 98.4; O2SAT 99
[2023-09-01 08:00] VITALS: BP 124/66; TEMP 97.5; O2SAT 95
[2023-09-01] MEDS: QUETIAPINE FUMARATE 100 MG TABLET PO SCH ×3 (08:51→21:06)
[2023-09-01] MEDS: Fluoxetine 10 mg capsule PO SCH (08:51)
[2023-09-01] MEDS: GABAPENTIN 300 MG CAPSULE PO SCH ×3 (08:51→17:06)
[2023-09-01] MEDS: SENNOSIDES 8.6 MG TABLET PO SCH (08:51)
[2023-09-01] MEDS: METOPROLOL TARTRATE 50 MG TABLET PO SCH ×2 (08:52→17:07)
[2023-09-01] MEDS: OFLOXACIN 0.3% OPHTH 5 ML BOTTLE EACHEYE SCH ×4 (08:53→21:07)
[2023-09-01 16:00] VITALS: BP 118/65; TEMP 98.9; O2SAT 98
[2023-09-01 20:00] VITALS: BP 103/46; TEMP 99; O2SAT 97
[2023-09-02] MEDS: TEMAZEPAM 15 MG CAPSULE PO PRN (01:23)
[2023-09-02 08:00] VITALS: BP 122/77; TEMP 98; O2SAT 100
[2023-09-02] MEDS: GABAPENTIN 300 MG CAPSULE PO SCH ×3 (08:51→16:33)
[2023-09-02] MEDS: Fluoxetine 10 mg capsule PO SCH (08:51)
[2023-09-02] MEDS: SENNOSIDES 8.6 MG TABLET PO SCH (08:52)
[2023-09-02] MEDS: QUETIAPINE FUMARATE 100 MG TABLET PO SCH ×3 (08:52→21:24)
[2023-09-02] MEDS: METOPROLOL TARTRATE 50 MG TABLET PO SCH ×2 (08:53→16:33)
[2023-09-02] MEDS: OFLOXACIN 0.3% OPHTH 5 ML BOTTLE EACHEYE SCH ×4 (08:55→21:25)
[2023-09-02 16:00] VITALS: BP 129/68; TEMP 97.4; O2SAT 94
[2023-09-02 20:00] VITALS: BP 126/71; TEMP 98.3; O2SAT 99
[2023-09-03] MEDS: TEMAZEPAM 15 MG CAPSULE PO PRN ×2 (02:57→23:38)
[2023-09-03 08:00] VITALS: BP 130/73; TEMP 98.1; O2SAT 98
[2023-09-03] MEDS: GABAPENTIN 300 MG CAPSULE PO SCH ×3 (08:26→17:34)
[2023-09-03] MEDS: QUETIAPINE FUMARATE 100 MG TABLET PO SCH ×3 (08:26→21:05)
[2023-09-03] MEDS: Fluoxetine 10 mg capsule PO SCH (08:26)
[2023-09-03] MEDS: METOPROLOL TARTRATE 50 MG TABLET PO SCH ×2 (08:26→17:00)
[2023-09-03] MEDS: OFLOXACIN 0.3% OPHTH 5 ML BOTTLE EACHEYE SCH ×4 (08:27→21:05)
[2023-09-03] MEDS: SENNOSIDES 8.6 MG TABLET PO SCH (08:27)
[2023-09-03 16:00] VITALS: BP 126/60; TEMP 98.2; O2SAT 96
[2023-09-03 21:35] VITALS: BP 106/59; TEMP 98.1; O2SAT 97
[2023-09-04 08:00] VITALS: BP 117/60; TEMP 98.1; O2SAT 96
[2023-09-04] MEDS: QUETIAPINE FUMARATE 100 MG TABLET PO SCH (08:35)
[2023-09-04] MEDS: SENNOSIDES 8.6 MG TABLET PO SCH (08:35)
[2023-09-04] MEDS: OFLOXACIN 0.3% OPHTH 5 ML BOTTLE EACHEYE SCH (08:35)
[2023-09-04] MEDS: Fluoxetine 10 mg capsule PO SCH (08:35)
[2023-09-04] MEDS: GABAPENTIN 300 MG CAPSULE PO SCH (08:35)
[2023-09-04 08:36] VITALS: BP 117/60
[2023-09-04] MEDS: METOPROLOL TARTRATE 50 MG TABLET PO SCH (08:36)
== END 2023-09-04 10:10 | disposition home or self-care (01) | DRG 885 ==
LOC: ER 19:08 → GPS 23:10
PROVIDERS: ADMIT Psychiatry & Neurology Psychiatry; ATTEND Nurse Practitioner Acute Care
DX: F31.5 Bipolar disorder, current episode depressed, severe, with psychotic features (principal); I11.0 Hypertensive heart disease with heart failure; I50.32 Chronic diastolic (congestive) heart failure; R45.851 Suicidal ideations; F29 Unspecified psychosis not due to a substance or known physiological condition; F41.9 Anxiety disorder, unspecified; Z20.822 Contact with and (suspected) exposure to COVID-19; F10.21 Alcohol dependence, in remission; Z53.29 Procedure and treatment not carried out because of patient's decision for other reasons; G47.00 Insomnia, unspecified; I25.10 Atherosclerotic heart disease of native coronary artery without angina pectoris; Z87.891 Personal history of nicotine dependence; Z96.651 Presence of right artificial knee joint; Z86.16 Personal history of COVID-19; Z88.8 Allergy status to other drugs, medicaments and biological substances; Z88.1 Allergy status to other antibiotic agents; Z91.018 Allergy to other foods; Z91.010 Allergy to peanuts; Z79.899 Other long term (current) drug therapy; R79.89 Other specified abnormal findings of blood chemistry
CPT/HCPCS: 36415; 80048-TC; 80061-TC; 80076-TC; 81001; 82962-TC; 85025-TC; 87086-TC; 97112-TC; 97116-TC; 97530-TC; G0480

== ENCOUNTER 2023-09-05 21:37 | Inpatient (IN) | payer MEDICARE, OTHER ==
[~2023-09-05] VITALS: Ht 152.4 cm; Wt 68.0 kg
[~2023-09-05 21:37] MED LIST changes: -AMOX1TAB16 PO; -BENA40TA8 PO; -GABA300C PO; +OFLO5DRO6 EACHEYE; -QUET100T PO; +SENN-261 PO
[2023-09-05 23:39] LABS: BASOPHILS % (AUTO) 0.4 % (0.0-2.0); EOSINOPHILS # (AUTO) 0.1 K/uL (0.0-0.7); EOSINOPHILS % (AUTO) 1.1 % (0.0-6.0); HEMATOCRIT 39 % (33-45); LYMPHOCYTES # (AUTO) 2.4 K/uL (0.8-4.8); LYMPHOCYTES % (AUTO) 27.9 % (20.0-44.0); MEAN CORPUSCULAR HEMOGLOBIN 30 PG (26.0-33.0); MEAN CORPUSCULAR HGB CONC 34 g/dl (31.0-36.0); MEAN CORPUSCULAR VOLUME 90 fL (82-100); MONOCYTES # (AUTO) 0.6 K/uL (0.1-1.30); NEUTROPHILS # (AUTO) 5.4 K/uL (1.8-8.9); NEUTROPHILS % (AUTO) 63.6 % (43.0-81.0); PLATELET COUNT (AUTO) 200 K/uL (150-450); RED BLOOD CELL COUNT(AUTO) 4.34 MIL/uL (4.0-5.2); RED CELL DISTRIBUTION WIDTH 14.6 % (11.5-15.0); WHITE BLOOD COUNT (AUTO) 8.5 K/uL (4.3-11.0)
[2023-09-05 23:41] LABS: APPEARANCE,URINE CLEAR (CLEAR); BILIRUBIN,URINE 1+ (NEGATIVE); BLOOD, URINE NEGATIVE Ery/uL (NEGATIVE); COLOR,URINE YELLOW (YELLOW); KETONES,URINE TRACE mg/dL (NEGATIVE); LEUKOCYTE ESTERASE ,URINE 2+ (NEGATIVE); NITRITE, URINE NEGATIVE (NEGATIVE); PROTEIN,URINE TRACE mg/dl (NEGATIVE); UGLUCOSE NEGATIVE (NEGATIVE)
[2023-09-05 23:54] LABS: CALCIUM, SERUM 9.2 mg/dL (8.5-10.1); CARBON DIOXIDE 27 mmol/L (21-32); CHLORIDE 104 mmol/L (98-107); CREATININE 0.8 mg/dL (0.6-1.3); GLUCOSE 106 mg/dL (74-106); POTASSIUM 3.6 mmol/L (3.5-5.1); SODIUM SERUM 139 mmol/L (136-145); UREA NITROGEN, BLOOD 14 mg/dL (7-18)
[2023-09-06 00:04] LABS: AMPHETAMINE, URINE NEGATIVE (NEGATIVE); BENZODIAZEPINE, URINE NEGATIVE (NEGATIVE); CANNABINOID, URINE NEGATIVE (NEGATIVE); COCCAINE, URINE NEGATIVE (NEGATIVE); OPIATE, URINE NEGATIVE (NEGATIVE); PHENCYCLIDINE SCREEN,URINE NEGATIVE (NEGATIVE)
[2023-09-06 00:05] LABS: ALANINE AMINOTRANSFERASE 114 U/L (12-78); ALBUMIN 3.7 g/dL (3.4-5.0); ALCOHOL, BLOOD < 3 mg/dL (0-10); ALKALINE PHOSPHATASE 101 U/L (46-116); ASPARTATE AMINOTRANSFERASE 154 U/L (15-37); BILIRUBIN,DIRECT 0.3 mg/dL (0.0-0.2); BILIRUBIN,TOTAL 0.7 mg/dL (0.2-1.0); TOTAL PROTEIN, SERUM 8.1 g/dL (6.4-8.2)
[2023-09-06 00:14] LABS: ACETAMINOPHEN <10 ug/ml (10-30); SALICYLATE < 0.2 mg/dL (2.8-20.0)
[2023-09-06 00:20] LABS: ADD URINE CULTURE YES; BACTERIA,URINE Rare /HPF (None Seen); MUCUS,URINE Few /LPF (None Seen); RBC,URINE NONE SEEN /HPF (0-2)
[2023-09-06 00:21] LABS: BARBITURATE, URINE NEGATIVE (NEGATIVE)
[2023-09-06 06:30] VITALS: O2SAT 97
[2023-09-06] MEDS ORDERED: FLUO20CA36 PO (07:47)
[2023-09-06] MEDS ORDERED: MAG HYDROX/AL HYDROX/SIMETH 30 ML UDC PO PRN (08:00)
[2023-09-06] MEDS ORDERED: MAGNESIUM HYDROXIDE 30 ML UDC PO PRN (08:00)
[2023-09-06] MEDS ORDERED: LORAZEPAM 0.5 MG TABLET PO PRN (08:00)
[2023-09-06] MEDS ORDERED: ZOLPIDEM TARTRATE 5 MG TABLET PO PRN (08:00)
[2023-09-06 08:20] VITALS: BP 157/79; TEMP 98.7
[2023-09-06] MEDS: GABAPENTIN 300 MG CAPSULE PO SCH (10:31)
[2023-09-06] MEDS: Fluoxetine 10 mg capsule PO SCH (10:31)
[2023-09-06] MEDS ORDERED: GABAPENTIN 300 MG CAPSULE PO SCH (13:00)
[2023-09-06] MEDS: NITROFURANTOIN/MONOHYDRATE MACROCRYSTALS 100 MG CAPSULE PO SCH (13:28)
[2023-09-06 16:00] VITALS: BP_SYST 129; BP_SYST 166; BP_DIAS 77; BP_DIAS 85; TEMP 99.7; O2SAT 98
[2023-09-06] MEDS: QUETIAPINE FUMARATE 100 MG TABLET PO SCH ×2 (17:08→21:14)
[2023-09-06] MEDS: METOPROLOL TARTRATE 50 MG TABLET PO SCH (17:08)
[2023-09-06 20:00] VITALS: BP 125/66; TEMP 98.6; O2SAT 100
[2023-09-07 08:00] VITALS: BP 115/64; TEMP 98; O2SAT 95
[2023-09-07 08:29] LABS: ALANINE AMINOTRANSFERASE 111 U/L (12-78); ALBUMIN 3.2 g/dL (3.4-5.0); ALKALINE PHOSPHATASE 89 U/L (46-116); ASPARTATE AMINOTRANSFERASE 131 U/L (15-37); BILIRUBIN,TOTAL 0.6 mg/dL (0.2-1.0); CALCIUM, SERUM 8.9 mg/dL (8.5-10.1); CARBON DIOXIDE 24 mmol/L (21-32); CHLORIDE 107 mmol/L (98-107); CREATININE 0.9 mg/dL (0.6-1.3); GLUCOSE 130 mg/dL (74-106); SODIUM SERUM 141 mmol/L (136-145); TOTAL PROTEIN, SERUM 7.5 g/dL (6.4-8.2); UREA NITROGEN, BLOOD 14 mg/dL (7-18)
[2023-09-07 08:35] LABS: CHOLESTEROL 153 mg/dL (<200); HDL CHOLESTEROL 75 mg/dL (40-60); LDL 65 mg/dL (0-99); TRIGLYCERIDES 75 mg/dL (30-150)
[2023-09-07 08:48] LABS: CREATININE 0.9 mg/dL (0.6-1.3)
[2023-09-07] MEDS ORDERED: FLUOXETINE HCL 20 MG CAPSULE PO SCH (09:00)
[2023-09-07 16:00] VITALS: BP 130/68; TEMP 97.9; O2SAT 96
[2023-09-07 20:00] VITALS: BP 151/72; TEMP 98.3; O2SAT 96
[2023-09-08 08:00] VITALS: BP 137/57; TEMP 97.7; O2SAT 96
[2023-09-08 16:00] VITALS: BP 132/66; TEMP 98.1; O2SAT 96
[2023-09-08 20:00] VITALS: BP 130/63; TEMP 98.6; O2SAT 100
[2023-09-09 08:00] VITALS: BP 148/66; TEMP 98.6; O2SAT 96
[2023-09-09 16:00] VITALS: BP 157/69; TEMP 98; O2SAT 95
[2023-09-09] MEDS: ACETAMINOPHEN 325 MG TABLET PO PRN (16:45)
[2023-09-09 20:00] VITALS: BP 143/69; TEMP 98.3; O2SAT 99
[2023-09-09] MEDS: MENTHOL/CETYLPYRD (CEPACOL) 1 LOZ LOZENGE PO PRN (21:35)
[2023-09-10 08:00] VITALS: BP 116/65; TEMP 97.8; O2SAT 95
[2023-09-10] MEDS: hydrOXYzine PAMOATE 25 MG CAPSULE PO PRN (12:25)
[2023-09-10 16:00] VITALS: BP 141/58; TEMP 99; O2SAT 94
[2023-09-10 16:03] LABS: BASOPHILS % (AUTO) 0.4 % (0.0-2.0); EOSINOPHILS # (AUTO) 0.2 K/uL (0.0-0.7); EOSINOPHILS % (AUTO) 2.4 % (0.0-6.0); HEMATOCRIT 37 % (33-45); HEMOGLOBIN 12.3 g/dL (11.5-14.8); LYMPHOCYTES # (AUTO) 2.1 K/uL (0.8-4.8); LYMPHOCYTES % (AUTO) 25.8 % (20.0-44.0); MEAN CORPUSCULAR HEMOGLOBIN 30 PG (26.0-33.0); MEAN CORPUSCULAR HGB CONC 34 g/dl (31.0-36.0); MEAN CORPUSCULAR VOLUME 90 fL (82-100); MONOCYTES # (AUTO) 0.8 K/uL (0.1-1.30); MONOCYTES % (AUTO) 9.5 % (2.0-12.0); NEUTROPHILS # (AUTO) 5.1 K/uL (1.8-8.9); NEUTROPHILS % (AUTO) 61.9 % (43.0-81.0); PLATELET COUNT (AUTO) 183 K/uL (150-450); RED CELL DISTRIBUTION WIDTH 14.6 % (11.5-15.0); WHITE BLOOD COUNT (AUTO) 8.2 K/uL (4.3-11.0)
[2023-09-10 16:21] LABS: BILIRUBIN,TOTAL 0.4 mg/dL (0.2-1.0); CALCIUM, SERUM 8.6 mg/dL (8.5-10.1); CREATININE 0.6 mg/dL (0.6-1.3); POTASSIUM 4.1 mmol/L (3.5-5.1); TOTAL PROTEIN, SERUM 7.2 g/dL (6.4-8.2)
[2023-09-10 21:12] VITALS: BP 138/58; TEMP 99; O2SAT 94
[2023-09-10 21:13] VITALS: BP 138/58; TEMP 98.9; O2SAT 94
[2023-09-11 08:00] VITALS: BP 161/67; TEMP 98.7; O2SAT 96
[2023-09-11 08:12] LABS: APPEARANCE,URINE CLEAR (CLEAR); BILIRUBIN,URINE NEGATIVE (NEGATIVE); BLOOD, URINE NEGATIVE Ery/uL (NEGATIVE); COLOR,URINE YELLOW (YELLOW); KETONES,URINE NEGATIVE (NEGATIVE); LEUKOCYTE ESTERASE ,URINE 1+ (NEGATIVE); NITRITE, URINE NEGATIVE (NEGATIVE); PROTEIN,URINE NEGATIVE (NEGATIVE); UGLUCOSE NEGATIVE (NEGATIVE)
[2023-09-11 08:13] LABS: ADD URINE CULTURE YES; BACTERIA,URINE Rare /HPF (None Seen); RBC,URINE 0-2 /HPF (0-2); SQUAMOUS EPITHELIAL CELL,UR Few /HPF (None Seen)
[2023-09-11 16:00] VITALS: BP 142/69; TEMP 98.6; O2SAT 98
[2023-09-11] MEDS: QUETIAPINE FUMARATE 100 MG TABLET PO SCH (21:24)
[2023-09-11 21:53] VITALS: BP_SYST 129; BP_SYST 130; BP_DIAS 59; BP_DIAS 65; TEMP 98.1; O2SAT 99
[2023-09-12 08:00] VITALS: BP 105/64; TEMP 98.7; O2SAT 98
[2023-09-12 16:00] VITALS: BP 141/65; TEMP 98.7; O2SAT 97
[2023-09-12 20:24] VITALS: BP 133/70; TEMP 97.9; O2SAT 97
[2023-09-13] MEDS: diphenhydrAMINE HCL 50 MG CAPSULE PO PRN (00:47)
[2023-09-13 08:00] VITALS: BP 120/76; TEMP 98.6; O2SAT 97
[2023-09-13 08:19] VITALS: BP 120/76
== END 2023-09-13 10:30 | disposition home or self-care (01) | DRG 885 ==
LOC: ER 21:39 → GPS 09-06 02:25
PROVIDERS: ADMIT Psychiatry & Neurology Psychiatry; ATTEND Nurse Practitioner Acute Care
DX: F31.9 Bipolar disorder, unspecified (principal); N39.0 Urinary tract infection, site not specified; F29 Unspecified psychosis not due to a substance or known physiological condition; G47.00 Insomnia, unspecified; I10 Essential (primary) hypertension; F25.1 Schizoaffective disorder, depressive type; Z20.822 Contact with and (suspected) exposure to COVID-19; F10.21 Alcohol dependence, in remission; F19.10 Other psychoactive substance abuse, uncomplicated; Z87.891 Personal history of nicotine dependence; Z96.651 Presence of right artificial knee joint; I25.10 Atherosclerotic heart disease of native coronary artery without angina pectoris; E78.5 Hyperlipidemia, unspecified; F41.9 Anxiety disorder, unspecified; Z86.16 Personal history of COVID-19; Z68.29 Body mass index [BMI] 29.0-29.9, adult; E66.3 Overweight; Z88.1 Allergy status to other antibiotic agents; Z91.018 Allergy to other foods; Z91.010 Allergy to peanuts; Z88.8 Allergy status to other drugs, medicaments and biological substances; Z91.048 Other nonmedicinal substance allergy status; Z79.899 Other long term (current) drug therapy; B96.89 Other specified bacterial agents as the cause of diseases classified elsewhere; R74.01 Elevation of levels of liver transaminase levels
CPT/HCPCS: 36415; 71045-TC; 80048-TC; 80053-TC; 80061-TC; 80076-TC; 81001; 82565-TC; 82962-TC; 83605-TC; 85025-TC; 87040-TC; 87086-TC; G0480; Q0163; Q0177

== ENCOUNTER 2023-09-25 14:29 | Emergency (ER) | payer MEDICARE, OTHER ==
[~2023-09-25] VITALS: Ht 152.4 cm; Wt 66.2 kg
[~2023-09-25 14:29] MED LIST changes: -ESCI10TA PO; +FLUO20CA36 PO
[2023-09-25 15:36] LABS: BASOPHILS # (AUTO) 0.1 K/uL (0.0-0.2); BASOPHILS % (AUTO) 1.8 % (0.0-2.0); EOSINOPHILS # (AUTO) 0.1 K/uL (0.0-0.7); EOSINOPHILS % (AUTO) 1.9 % (0.0-6.0); HEMATOCRIT 38 % (33-45); HEMOGLOBIN 12.6 g/dL (11.5-14.8); LYMPHOCYTES # (AUTO) 2.1 K/uL (0.8-4.8); LYMPHOCYTES % (AUTO) 31.4 % (20.0-44.0); MEAN CORPUSCULAR HEMOGLOBIN 30 PG (26.0-33.0); MEAN CORPUSCULAR HGB CONC 33 g/dl (31.0-36.0); MEAN CORPUSCULAR VOLUME 91 fL (82-100); MONOCYTES # (AUTO) 0.7 K/uL (0.1-1.30); MONOCYTES % (AUTO) 10.2 % (2.0-12.0); NEUTROPHILS # (AUTO) 3.6 K/uL (1.8-8.9); NEUTROPHILS % (AUTO) 54.7 % (43.0-81.0); PLATELET COUNT (AUTO) 185 K/uL (150-450); RED BLOOD CELL COUNT(AUTO) 4.22 MIL/uL (4.0-5.2); RED CELL DISTRIBUTION WIDTH 15.1 % (11.5-15.0); WHITE BLOOD COUNT (AUTO) 6.6 K/uL (4.3-11.0)
[2023-09-25 15:58] LABS: APPEARANCE,URINE SLIGHTLY CLOUDY (CLEAR); BILIRUBIN,URINE 1+ (NEGATIVE); BLOOD, URINE NEGATIVE Ery/uL (NEGATIVE); COLOR,URINE YELLOW (YELLOW); KETONES,URINE 1+ mg/dL (NEGATIVE); LEUKOCYTE ESTERASE ,URINE 2+ (NEGATIVE); NITRITE, URINE NEGATIVE (NEGATIVE); PH,URINE 5.5 (5.0-8.0); PROTEIN,URINE 1+ mg/dl (NEGATIVE); UGLUCOSE NEGATIVE (NEGATIVE)
[2023-09-25 16:21] LABS: ADD URINE CULTURE YES; BACTERIA,URINE 1+ /HPF (None Seen); MUCUS,URINE Few /LPF (None Seen); RBC,URINE 0-2 /HPF (0-2); WBC,URINE 21-50 /HPF (0-3)
[2023-09-25 16:32] LABS: PARTIAL THROMBOPLASTIN TIME 27.3 SEC (24.3-34.3); PROTHROMBIN TIME 10.6 SECS (9.2-11.1)
[2023-09-25 16:41] LABS: CALCIUM, SERUM 8.6 mg/dL (8.5-10.1); CARBON DIOXIDE 27 mmol/L (21-32); CHLORIDE 103 mmol/L (98-107); CREATININE 1.1 mg/dL (0.6-1.3); GLUCOSE 95 mg/dL (74-106); POTASSIUM 3.8 mmol/L (3.5-5.1); SODIUM SERUM 141 mmol/L (136-145); UREA NITROGEN, BLOOD 13 mg/dL (7-18)
[2023-09-25 16:48] LABS: LACTIC ACID 1.8 mmol/L (0.4-2.0)
[2023-09-25 16:51] LABS: ALANINE AMINOTRANSFERASE 126 U/L (12-78); ALBUMIN 3.3 g/dL (3.4-5.0); ALKALINE PHOSPHATASE 98 U/L (46-116); ASPARTATE AMINOTRANSFERASE 84 U/L (15-37); BILIRUBIN,DIRECT 0.2 mg/dL (0.0-0.2); BILIRUBIN,TOTAL 0.4 mg/dL (0.2-1.0); TOTAL PROTEIN, SERUM 7.1 g/dL (6.4-8.2)
[2023-09-25 19:25] VITALS: BP 120/70; TEMP 98.1; O2SAT 100
== END 2023-09-25 19:26 ==
LOC: ER 14:29
DX: R53.1 Weakness (principal); R62.7 Adult failure to thrive; I10 Essential (primary) hypertension; Z98.890 Other specified postprocedural states; Z79.899 Other long term (current) drug therapy; Z68.28 Body mass index [BMI] 28.0-28.9, adult; Z88.1 Allergy status to other antibiotic agents; Z88.2 Allergy status to sulfonamides
CPT/HCPCS: 36415; 71045-TC; 80048-TC; 80076-TC; 81001; 83605-TC; 84484-TC; 85025-TC; 85730-TC; 87040-TC; 87086-TC

== ENCOUNTER 2025-03-24 12:17 | Emergency (ER) | payer MEDICARE, OTHER ==
[~2025-03-24] VITALS: Ht 152.4 cm; Wt 61.2 kg
[2025-03-24 12:31] VITALS: TEMP 98.4
[2025-03-24 12:49] LABS: PLATELET COUNT (AUTO) 221 K/uL (150-450); RED BLOOD CELL COUNT(AUTO) 3.87 MIL/uL (4.0-5.2); RED CELL DISTRIBUTION WIDTH 14.1 % (11.5-15.0); WHITE BLOOD COUNT (AUTO) 6.5 K/uL (4.3-11.0)
[2025-03-24 12:59] LABS: CALCIUM, SERUM 8.4 mg/dL (8.5-10.1); CREATININE 0.9 mg/dL (0.6-1.3); SODIUM SERUM 143 mmol/L (136-145); UREA NITROGEN, BLOOD 18 mg/dL (7-18)
[2025-03-24 13:12] LABS: NT-PRO BNP 555 pg/mL (0-125)
[2025-03-24] MEDS ORDERED: FUROSEMIDE 20 MG/2 ML VIAL ONE (13:51)
[2025-03-24] MEDS: FUROSEMIDE 20 MG/2 ML VIAL IV ONE (13:54)
[2025-03-24 14:10] VITALS: BP 114/80; O2SAT 97
== END 2025-03-24 14:05 | disposition home or self-care (01) ==
LOC: ER 12:22
DX: R60.0 Localized edema (principal); I10 Essential (primary) hypertension; Z79.899 Other long term (current) drug therapy; Z86.16 Personal history of COVID-19; Z88.1 Allergy status to other antibiotic agents; Z88.2 Allergy status to sulfonamides; Z96.651 Presence of right artificial knee joint; Z60.2 Problems related to living alone
CPT/HCPCS: 99285; 93970; 96374; 71045; 93005 ×2; 85025; 80048; 36415; 84484; 83880; J1938